=== PATIENT | female | born 1955 | race Caucasian/White ===

== ENCOUNTER 2019-10-12 15:51 | Outpatient (CLI) | payer OTHER, SELFPAY ==
--- NOTE | ~2019-10-12 | MM_ITS ---
EXAMINATION: MM screening [facility] w carlos enrique HISTORY: Screening mammogram, family history of breast cancer in her mother. TECHNIQUE: Craniocaudal and mediolateral oblique 3-D tomosynthesis images were obtained and synthetic 2-D images were generated. CAD analysis was submitted and interpreted. COMPARISON: 10/06/2018, 09/29/2017, 09/16/2015 BREAST PARENCHYMAL COMPOSITION: The breasts are almost entirely fatty. FINDINGS: Benign right breast calcifications are noted. There is no evidence of suspicious mass, calc ification, or architectural distortion to suggest malignancy in either breast. There has been no susp icious interval change. IMPRESSION: 1. No mammographic evidence of malignancy. 2. Recommend routine screening mammography in one year. BI-RADS Category 2: Benign finding(s). Reviewed, dictated and finalized at location A.
== END 2019-10-12 15:52 | disposition home or self-care (01) ==
LOC: ANHIMG 15:53
PROVIDERS: PCP Internal Medicine; Visit Provider Internal Medicine
DX: Z12.31 Encounter for screening mammogram for malignant neoplasm of breast (principal)
CPT/HCPCS: 77063; 77067

== ENCOUNTER 2019-11-16 09:57 | Outpatient (CLI) | payer OTHER, SELFPAY ==
[2019-11-16 10:14] LABS: Basophils Absolute Auto 0.1 K/mm3 (0.0-0.1); Basophils Percent Auto 0.7 % (0.2-1.2); Eosinophils Absolute Auto 0.2 K/mm3 (0-0.3); Eosinophils Percent Auto 2.7 % (0-4.4); Hematocrit 42.2 % (37.0-47.0); Hemoglobin 14.2 g/dL (12.0-15.0); Immature Granulocyte Absolute 0.02 K/mm3 (0.00-0.031); Immature Granulocyte Percent A 0.3 % (0-0.5); Lymphocytes Absolute Auto 2.22 K/mm3 (0.9-3.2); Lymphocytes Percent Auto 33.2 % (18.3-44.2); Mean Corpuscular HGB Conc 33.6 g/dl (32-36); Mean Corpuscular Hemoglobin 33.4 pg (26-34); Mean Corpuscular Volume 99.3 fl (80-100); Mean Platelet Volume 8.6 fl (7.4-10.4); Monocytes Absolute Auto 0.6 K/mm3 (0.1-0.6); Monocytes Percent Auto 8.5 % (2.6-8.5); Neutrophils Absolute Auto 3.7 K/mm3 (1.3-6.7); Neutrophils Percent Auto 54.6 % (45.5-73.1); Platelet Count Result 220 k/mm3 (150-375); Red Blood Count 4.25 M/mm3 (4.2-5.4); Red Cell Distribution Width 12.1 % (11.5-14.5); White Blood Count 6.7 K/mm3 (4.5-10.0)
[2019-11-16 11:45] LABS: Blood Urea Nitrogen 14 mg/dL (7-17); Calcium 9.8 mg/dL (8.4-10.2); Carbon Dioxide 23 mmol/L (22-30); Chloride 107 mmol/L (98-107); Estimated Glomerular Filt Rate > 60; Glucose 94 mg/dL (65-105); Potassium 4.8 mmol/L (3.4-5.0); Sodium 138 mmol/L (137-145)
[2019-11-16 12:08] LABS: Free T4 Free Thyroxine 0.36 ng/mL (0.78-2.19)
[2019-11-18 03:19] LABS: Thyroglobulin 6.2 ng/mL (2.8-40.9); Thyroglobulin Antibodies 8 IU/mL (<=1)
== END 2019-11-16 09:58 | disposition home or self-care (01) ==
LOC: ANHLAB 09:58
PROVIDERS: PCP Internal Medicine; Referring Provider Internal Medicine Endocrinology, Diabetes & Metabolism; Visit Provider Internal Medicine Hematology & Oncology
DX: C73 Malignant neoplasm of thyroid gland (principal); E03.9 Hypothyroidism, unspecified
CPT/HCPCS: 36415; 80048; 84432; 84439; 84443; 85025; 86800

== ENCOUNTER 2019-12-19 13:29 | Outpatient (CLI) | payer OTHER, SELFPAY ==
[2019-12-19 15:41] LABS: Free T4 Free Thyroxine 0.48 ng/mL (0.78-2.19)
== END 2019-12-19 13:30 | disposition home or self-care (01) ==
LOC: ANHLAB 13:31
PROVIDERS: PCP Internal Medicine; Visit Provider Internal Medicine Endocrinology, Diabetes & Metabolism
DX: C73 Malignant neoplasm of thyroid gland (principal)
CPT/HCPCS: 36415; 84439; 84443

== ENCOUNTER 2020-02-15 07:20 | Outpatient (CLI) | payer OTHER, SELFPAY ==
--- NOTE | ~2020-02-15 | US_ITS ---
EXAMINATION: US soft tissue head and neck DATE: 02/15/2020 07:57 INDICATION: Papillary thyroid carcinoma post thyroidectomy TECHNIQUE: Multiple grayscale and Doppler ultrasound images of the neck were obtained. COMPARISON: 08/15/[address] of the neck dated 03/23/2018 FINDINGS: Thyroid is absent with no visual tissue identified at the thyroidectomy bed. Again seen are 2 anechoi c cystic nodules with posterior acoustic enhancement at the more cephalad nodule which measures 2.2 x 2.2 x 1.4 cm which is increased from 1.8 x 1.7 x 1.4 cm. There appears to be a 2 x 3 mm hypoechoic n odular component along a thin internal septation within the lesion. The smaller more caudal lesion me asures 1.6 x 1.2 x 1.1 cm which is also slightly increased from 1.3 x 1.2 x 1.2 cm. There is a third 9 x 8 x 5 mm hypoechoic nodule positioned yet further inferiorly along the midline. Which was not dis cretely imaged on the prior study although mildly enlarged superior mediastinal lymph nodes were seen in this region on an earlier CT dated 03/23/2018. IMPRESSION: 1. Slight increase in size of a couple cystic lesions inferior to the thyroid, the smaller without ev ident soft tissue component and the larger more cephalad lesion appearing mildly complex with 2 x 3 m m nodular soft tissue component along a thin internal septation is suspicious for treated jessica metas tatic disease. 2. More inferior 9 mm solid hypoechoic nodule which is not imaged on the prior study but appears to c orrespond to one of a few prominent superior mediastinal lymph nodes on earlier CT which is also susp icious for metastatic disease. Reviewed, dictated and finalized at location A. IMPRESSION: 1. Slight increase in size of a couple cystic lesions inferior to the thyroid, the smaller without evident soft tissue component and the larger more cephalad lesion appearing mildly complex with 2 x 3 mm nodular soft tissue component mer ng a thin internal septation is suspicious for treated jessica metastatic disease . 2. More inferior 9 mm solid hypoechoic nodule which is not imaged on the prior study but appears to correspond to one of a few prominent superior mediastinal lymph nodes on earlier CT which is also suspicious for metastatic disease.
== END 2020-02-15 07:21 | disposition home or self-care (01) ==
LOC: ANHIMG 07:25
PROVIDERS: PCP Internal Medicine; Visit Provider Internal Medicine Hematology & Oncology
DX: C73 Malignant neoplasm of thyroid gland (principal)
CPT/HCPCS: 76536

== ENCOUNTER 2020-02-15 08:24 | Outpatient (CLI) | payer OTHER, SELFPAY ==
[2020-02-15 08:45] LABS: Basophils Absolute Auto 0.1 K/mm3 (0.0-0.1); Basophils Percent Auto 0.7 % (0.2-1.2); Eosinophils Absolute Auto 0.1 K/mm3 (0-0.3); Eosinophils Percent Auto 0.9 % (0-4.4); Hematocrit 42.1 % (37.0-47.0); Hemoglobin 14.2 g/dL (12.0-15.0); Immature Granulocyte Absolute 0.02 K/mm3 (0.00-0.031); Immature Granulocyte Percent A 0.3 % (0-0.5); Lymphocytes Absolute Auto 1.11 K/mm3 (0.9-3.2); Mean Corpuscular HGB Conc 33.7 g/dl (32-36); Mean Corpuscular Hemoglobin 32.1 pg (26-34); Mean Platelet Volume 8.5 fl (7.4-10.4); Monocytes Absolute Auto 0.3 K/mm3 (0.1-0.6); Monocytes Percent Auto 4.3 % (2.6-8.5); Neutrophils Absolute Auto 5.8 K/mm3 (1.3-6.7); Neutrophils Percent Auto 78.8 % (45.5-73.1); Platelet Count Result 243 k/mm3 (150-375); Red Blood Count 4.43 M/mm3 (4.2-5.4); Red Cell Distribution Width 12.1 % (11.5-14.5); White Blood Count 7.4 K/mm3 (4.5-10.0)
[2020-02-15 11:09] LABS: Alanine Aminotransferase 27 U/L (4-35); Albumin Level 4.5 g/dL (3.5-5.1); Alkaline Phosphatase 123 U/L (38-126); Aspartate Amino Transferase 27 U/L (14-36); Bilirubin,Total 0.5 mg/dL (0.2-1.3); Blood Urea Nitrogen 17 mg/dL (7-17); Calcium 9.5 mg/dL (8.4-10.2); Carbon Dioxide 22 mmol/L (22-30); Chloride 107 mmol/L (98-107); Estimated Glomerular Filt Rate > 60; Glucose 133 mg/dL (65-105); Potassium 4.3 mmol/L (3.4-5.0); Sodium 138 mmol/L (137-145)
[2020-02-18 04:09] LABS: Thyroglobulin 2.6 ng/mL (2.8-40.9); Thyroglobulin Antibodies 5 IU/mL (<=1)
== END 2020-02-15 08:25 | disposition home or self-care (01) ==
PROVIDERS: PCP Internal Medicine; Visit Provider Internal Medicine Hematology & Oncology
DX: C73 Malignant neoplasm of thyroid gland (principal)
CPT/HCPCS: 36415; 80053; 84432; 85025; 86800

== ENCOUNTER 2020-05-17 11:13 | Outpatient (CLI) | payer MEDICARE, OTHER, SELFPAY ==
[2020-05-17 11:40] LABS: Basophils Absolute Auto 0.1 K/mm3 (0.0-0.1); Basophils Percent Auto 0.9 % (0.2-1.2); Eosinophils Absolute Auto 0.1 K/mm3 (0-0.3); Eosinophils Percent Auto 1.5 % (0-4.4); Hematocrit 42.4 % (37.0-47.0); Hemoglobin 14.6 g/dL (12.0-15.0); Immature Granulocyte Absolute 0.03 K/mm3 (0.00-0.031); Immature Granulocyte Percent A 0.4 % (0-0.5); Lymphocytes Absolute Auto 2.29 K/mm3 (0.9-3.2); Lymphocytes Percent Auto 28.7 % (18.3-44.2); Mean Corpuscular HGB Conc 34.4 g/dl (32-36); Mean Corpuscular Hemoglobin 33.1 pg (26-34); Mean Corpuscular Volume 96.1 fl (80-100); Mean Platelet Volume 8.2 fl (7.4-10.4); Monocytes Absolute Auto 0.6 K/mm3 (0.1-0.6); Monocytes Percent Auto 7.8 % (2.6-8.5); Neutrophils Absolute Auto 4.9 K/mm3 (1.3-6.7); Neutrophils Percent Auto 60.7 % (45.5-73.1); Platelet Count Result 254 k/mm3 (150-375); Red Blood Count 4.41 M/mm3 (4.2-5.4); Red Cell Distribution Width 12.5 % (11.5-14.5)
[2020-05-17 17:10] LABS: Alanine Aminotransferase 21 U/L (4-35); Albumin Level 4.2 g/dL (3.5-5.1); Alkaline Phosphatase 113 U/L (38-126); Anion Gap 10 mmol/L (8-16); Aspartate Amino Transferase 21 U/L (14-36); Bilirubin,Total 0.6 mg/dL (0.2-1.3); Blood Urea Nitrogen 19 mg/dL (7-17); Calcium 9.8 mg/dL (8.4-10.2); Carbon Dioxide 24 mmol/L (22-30); Chloride 108 mmol/L (98-107); Estimated Glomerular Filt Rate > 60; Glucose 107 mg/dL (65-105); Potassium 4.1 mmol/L (3.4-5.0); Sodium 142 mmol/L (137-145)
[2020-05-20 05:38] LABS: Thyroglobulin 4.6 ng/mL (2.8-40.9); Thyroglobulin Antibodies 2 IU/mL (<=1)
== END 2020-05-17 11:14 | disposition home or self-care (01) ==
PROVIDERS: PCP Internal Medicine; Visit Provider Internal Medicine Hematology & Oncology
DX: C73 Malignant neoplasm of thyroid gland (principal)
CPT/HCPCS: 36415; 80053; 84432; 84443; 85025; 86800

== ENCOUNTER 2020-06-07 09:43 | Outpatient (CLI) | payer MEDICARE, OTHER, SELFPAY ==
[2020-06-07 11:31] LABS: Calcium 9.9 mg/dL (8.4-10.2)
[2020-06-07 11:37] LABS: Parathyroid Intact 38.6 pg/mL (7.5-53.5)
[2020-06-07 11:42] LABS: Free T4 Free Thyroxine 0.71 ng/mL (0.78-2.19)
[2020-06-10 21:42] LABS: Triiodothyronine T3 Free 4.2 pg/mL (2.3-4.2)
[2020-06-13 07:44] LABS: Thyroglobulin 3.1 ng/mL (2.8-40.9); Thyroglobulin Antibodies 2 IU/mL (<=1)
== END 2020-06-07 09:44 | disposition home or self-care (01) ==
PROVIDERS: PCP Internal Medicine; Visit Provider Radiology Radiation Oncology
DX: C73 Malignant neoplasm of thyroid gland (principal)
CPT/HCPCS: 36415; 82310; 83970; 84432; 84439; 84443; 84481; 86800

== ENCOUNTER 2020-06-27 06:35 | Outpatient (CLI) | payer MEDICARE, OTHER, SELFPAY ==
[2020-06-27 08:20] LABS: Thyroid Stimulating Hormone > 100.000 uIU/mL (0.465-4.680)
[2020-07-01 02:34] LABS: Thyroglobulin 12.8 ng/mL (2.8-40.9); Thyroglobulin Antibodies 2 IU/mL (<=1)
== END 2020-06-27 06:36 | disposition home or self-care (01) ==
PROVIDERS: PCP Internal Medicine; Visit Provider Radiology Radiation Oncology
DX: C73 Malignant neoplasm of thyroid gland (principal)
CPT/HCPCS: 36415; 84432; 84443; 86800

== ENCOUNTER 2020-08-21 08:09 | Outpatient (CLI) | payer MEDICARE, OTHER, SELFPAY ==
[2020-08-21 08:28] LABS: Basophils Absolute Auto 0.1 K/mm3 (0.0-0.1); Basophils Percent Auto 0.7 % (0.2-1.2); Eosinophils Absolute Auto 0.1 K/mm3 (0-0.3); Eosinophils Percent Auto 1.9 % (0-4.4); Hematocrit 41.4 % (37.0-47.0); Immature Granulocyte Absolute 0.03 K/mm3 (0.00-0.031); Immature Granulocyte Percent A 0.4 % (0-0.5); Lymphocytes Absolute Auto 1.99 K/mm3 (0.9-3.2); Lymphocytes Percent Auto 27.4 % (18.3-44.2); Mean Corpuscular HGB Conc 33.8 g/dl (32-36); Mean Corpuscular Hemoglobin 33.2 pg (26-34); Mean Corpuscular Volume 98.1 fl (80-100); Mean Platelet Volume 8.2 fl (7.4-10.4); Monocytes Absolute Auto 0.6 K/mm3 (0.1-0.6); Monocytes Percent Auto 8.1 % (2.6-8.5); Neutrophils Absolute Auto 4.5 K/mm3 (1.3-6.7); Neutrophils Percent Auto 61.5 % (45.5-73.1); Platelet Count Result 246 k/mm3 (150-375); Red Blood Count 4.22 M/mm3 (4.2-5.4); White Blood Count 7.3 K/mm3 (4.5-10.0)
[2020-08-21 13:07] LABS: Alanine Aminotransferase 19 U/L (4-35); Alkaline Phosphatase 98 U/L (38-126); Anion Gap 8 mmol/L (8-16); Aspartate Amino Transferase 22 U/L (14-36); Bilirubin,Total 0.7 mg/dL (0.2-1.3); Blood Urea Nitrogen 16 mg/dL (7-17); Calcium 9.4 mg/dL (8.4-10.2); Carbon Dioxide 25 mmol/L (22-30); Chloride 106 mmol/L (98-107); Estimated Glomerular Filt Rate > 60; Glucose 112 mg/dL (65-105); Potassium 4.2 mmol/L (3.4-5.0); Sodium 139 mmol/L (137-145)
[2020-08-25 22:41] LABS: Thyroglobulin 4.6 ng/mL (2.8-40.9); Thyroglobulin Antibodies 2 IU/mL (<=1)
== END 2020-08-21 08:10 | disposition home or self-care (01) ==
LOC: ANHLAB 08:11
PROVIDERS: PCP Internal Medicine; Visit Provider Internal Medicine Hematology & Oncology
DX: C73 Malignant neoplasm of thyroid gland (principal)
CPT/HCPCS: 36415; 80053; 84432; 84443; 85025; 86800

== ENCOUNTER 2020-09-19 10:37 | Outpatient (CLI) | payer MEDICARE, OTHER, SELFPAY ==
[2020-09-19 16:55] LABS: Anion Gap 3 mmol/L (8-16); Blood Urea Nitrogen 12 mg/dL (7-17); Calcium 9.3 mg/dL (8.4-10.2); Carbon Dioxide 27 mmol/L (22-30); Chloride 109 mmol/L (98-107); Estimated Glomerular Filt Rate > 60; Glucose 113 mg/dL (65-105); Magnesium 1.8 mg/dL (1.6-2.3); Potassium 4.1 mmol/L (3.4-5.0); Sodium 139 mmol/L (137-145)
== END 2020-09-19 10:38 | disposition home or self-care (01) ==
LOC: ANHLAB 10:39
PROVIDERS: PCP Internal Medicine
DX: C73 Malignant neoplasm of thyroid gland (principal)
CPT/HCPCS: 36415; 80048; 83735; 84443

== ENCOUNTER 2020-10-16 16:14 | Outpatient (CLI) | payer MEDICARE, OTHER, SELFPAY ==
--- NOTE | ~2020-10-16 | MM_ITS ---
EXAMINATION: MM screening [facility] w carlos enrique HISTORY: Screening TECHNIQUE: Craniocaudal and mediolateral oblique 3-D tomosynthesis images were obtained and synthetic 2-D images were generated. CAD analysis was submitted and interpreted. COMPARISON: Comparison to multiple prior studies sequentially, with oldest reviewed study dated 11/2014. BREAST PARENCHYMAL COMPOSITION: There are scattered areas of fibroglandular density. FINDINGS: There is no evidence of suspicious mass, calcification, or architectural distortion to sugg est malignancy in either breast. There has been no suspicious interval change. IMPRESSION: 1. No mammographic evidence of malignancy. 2. Recommend routine screening mammography in one year. BI-RADS Category 1: Negative Reviewed, dictated and finalized at location A.
== END 2020-10-16 16:15 | disposition home or self-care (01) ==
PROVIDERS: PCP Internal Medicine; Visit Provider Internal Medicine
DX: Z12.31 Encounter for screening mammogram for malignant neoplasm of breast (principal)
CPT/HCPCS: 77063; 77067

== ENCOUNTER 2020-10-29 09:43 | Outpatient (CLI) | payer MEDICARE, OTHER, SELFPAY ==
[2020-10-29 10:04] LABS: Basophils Percent Auto 0.7 % (0.2-1.2); Eosinophils Absolute Auto 0.2 K/mm3 (0-0.3); Eosinophils Percent Auto 2.5 % (0-4.4); Hemoglobin 12.9 g/dL (12.0-15.0); Immature Granulocyte Absolute 0.01 K/mm3 (0.00-0.031); Immature Granulocyte Percent A 0.2 % (0-0.5); Lymphocytes Absolute Auto 1.99 K/mm3 (0.9-3.2); Lymphocytes Percent Auto 33.3 % (18.3-44.2); Mean Corpuscular HGB Conc 33.9 g/dl (32-36); Mean Corpuscular Hemoglobin 31.9 pg (26-34); Mean Corpuscular Volume 94.1 fl (80-100); Mean Platelet Volume 8.3 fl (7.4-10.4); Monocytes Absolute Auto 0.5 K/mm3 (0.1-0.6); Neutrophils Absolute Auto 3.2 K/mm3 (1.3-6.7); Neutrophils Percent Auto 54.3 % (45.5-73.1); Platelet Count Result 256 k/mm3 (150-375); Red Blood Count 4.04 M/mm3 (4.2-5.4); Red Cell Distribution Width 12.1 % (11.5-14.5)
[2020-10-29 12:26] LABS: Alanine Aminotransferase 20 U/L (4-35); Albumin Level 4.1 g/dL (3.5-5.1); Alkaline Phosphatase 104 U/L (38-126); Anion Gap 10 mmol/L (8-16); Aspartate Amino Transferase 22 U/L (14-36); Bilirubin,Total 0.4 mg/dL (0.2-1.3); Blood Urea Nitrogen 14 mg/dL (7-17); Calcium 9.4 mg/dL (8.4-10.2); Carbon Dioxide 22 mmol/L (22-30); Chloride 107 mmol/L (98-107); Estimated Glomerular Filt Rate > 60; Glucose 116 mg/dL (65-105); Sodium 139 mmol/L (137-145)
[2020-10-29 13:58] LABS: Potassium 4.3 mmol/L (3.4-5.0)
[2020-11-01 05:29] LABS: Thyroglobulin 0.1 ng/mL (2.8-40.9); Thyroglobulin Antibodies 2 IU/mL (<=1)
== END 2020-10-29 09:44 | disposition home or self-care (01) ==
PROVIDERS: PCP Internal Medicine; Visit Provider Internal Medicine Hematology & Oncology
DX: C73 Malignant neoplasm of thyroid gland (principal)
CPT/HCPCS: 36415; 80053; 84432; 84443; 85025; 86800

== ENCOUNTER 2020-11-23 08:59 | Outpatient (CLI) | payer MEDICARE, OTHER, SELFPAY ==
[2020-11-23 09:22] LABS: Basophils Absolute Auto 0.1 K/mm3 (0.0-0.1); Eosinophils Absolute Auto 0.2 K/mm3 (0-0.3); Eosinophils Percent Auto 3.3 % (0-4.4); Hematocrit 43.4 % (37.0-47.0); Hemoglobin 14.6 g/dL (12.0-15.0); Immature Granulocyte Absolute 0.02 K/mm3 (0.00-0.031); Immature Granulocyte Percent A 0.3 % (0-0.5); Lymphocytes Absolute Auto 1.96 K/mm3 (0.9-3.2); Lymphocytes Percent Auto 33.9 % (18.3-44.2); Mean Corpuscular HGB Conc 33.6 g/dl (32-36); Mean Corpuscular Hemoglobin 31.9 pg (26-34); Mean Platelet Volume 8.4 fl (7.4-10.4); Monocytes Absolute Auto 0.6 K/mm3 (0.1-0.6); Monocytes Percent Auto 9.7 % (2.6-8.5); Neutrophils Percent Auto 51.8 % (45.5-73.1); Platelet Count Result 244 k/mm3 (150-375); Red Blood Count 4.57 M/mm3 (4.2-5.4); Red Cell Distribution Width 12.5 % (11.5-14.5); White Blood Count 5.8 K/mm3 (4.5-10.0)
[2020-11-23 14:29] LABS: Alanine Aminotransferase 22 U/L (4-35); Albumin Level 4.5 g/dL (3.5-5.1); Alkaline Phosphatase 120 U/L (38-126); Anion Gap 10 mmol/L (8-16); Aspartate Amino Transferase 25 U/L (14-36); Bilirubin,Total 0.6 mg/dL (0.2-1.3); Blood Urea Nitrogen 16 mg/dL (7-17); Calcium 9.8 mg/dL (8.4-10.2); Carbon Dioxide 24 mmol/L (22-30); Chloride 106 mmol/L (98-107); Estimated Glomerular Filt Rate > 60; Glucose 103 mg/dL (65-105); Potassium 4.7 mmol/L (3.4-5.0); Sodium 140 mmol/L (137-145)
[2020-11-26 03:08] LABS: Thyroglobulin <0.1 ng/mL (2.8-40.9); Thyroglobulin Antibodies 2 IU/mL (<=1)
== END 2020-11-23 09:00 | disposition home or self-care (01) ==
LOC: ANHLAB 09:01
PROVIDERS: PCP Internal Medicine; Visit Provider Internal Medicine Hematology & Oncology
DX: C73 Malignant neoplasm of thyroid gland (principal)
CPT/HCPCS: 36415; 80053; 84432; 84443; 85025; 86800

== ENCOUNTER 2020-12-17 13:21 | Outpatient (CLI) | payer MEDICARE, OTHER, SELFPAY ==
--- NOTE | ~2020-12-17 | US_ITS ---
EXAMINATION: US thyroid DATE: 12/17/2020 14:20 INDICATION: Thyroid cancer. TECHNIQUE: Multiple ultrasound images of the thyroid were obtained. COMPARISON: Ultrasound 02/15/2020 FINDINGS: The thyroid is absent. There are no pathologically enlarged lymph nodes. IMPRESSION: 1. No evidence of metastatic disease. Reviewed, dictated and finalized at location A.
== END 2020-12-17 13:22 | disposition home or self-care (01) ==
PROVIDERS: PCP Internal Medicine; Visit Provider Internal Medicine Endocrinology, Diabetes & Metabolism
DX: Z85.850 Personal history of malignant neoplasm of thyroid (principal)
CPT/HCPCS: 76536

== ENCOUNTER 2020-12-19 09:47 | Outpatient (CLI) | payer MEDICARE, OTHER, SELFPAY | END 2020-12-19 09:48 | disposition home or self-care (01) | PROVIDERS: PCP Internal Medicine; Visit Provider Internal Medicine Hematology & Oncology | DX: C73 Malignant neoplasm of thyroid gland (principal) | CPT/HCPCS: 36415; 84443 ==

== ENCOUNTER 2021-01-18 08:50 | Outpatient (CLI) | payer MEDICARE, OTHER, SELFPAY ==
--- NOTE | ~2021-01-18 | DEXA_ITS ---
Bone Density Report Name: Marley Stephneson Age: 65 Sex: Female Ethnicity: White Date of : 1955 Indication: postmenopausal; cancer; asthma or emphysema; hysterectomy; Referring Provider: Juan, Yanelis Gallegos Study: Bone densitometry was performed. Exam Date: January 18, 2021 Accession number: [id number] Bone Density: Region BMD T-score Z-score Classification AP Spine (L2, L3, L4) 0.873 -1.9 0.0 Osteopenia Femoral Neck (Left) 0.644 -1.8 -0.3 Osteopenia Total Hip (Left) 0.850 -0.8 0.5 Normal Total Hip Bilateral Avg 0.818 -1.1 0.3 Osteopenia Femoral Neck (Right) 0.703 -1.3 0.2 Osteopenia Total Hip (Right) 0.784 -1.3 0.0 Osteopenia World Health Organization criteria for BMD impression classify patients as: Normal (T-score at or above -1.0), Osteopenia (T-score between -1.0 and -2.5), or Osteoporosis (T-score at or below -2.5). 10-year Fracture Risk(1): Major Osteoporotic Fracture 9.7% Hip Fracture 1.3% Reported Risk Factors: [place] (), Neck BMD=0.644, BMI=31.1 (1) FRAX(R) Version 3.08. Fracture probability calculated for an untreated patient. Fracture probability may be lower if the patient has received treatment. Clinical Information Provided by Patient: Has used the following medications: Vitamin D, Calcium Has the following medical conditions: Asthma or Emphysema, Cancer, Hysterectomy Patient maximum height was 63 Menopause Age: 35 No regular weight bearing exercise Onset of menses at age 11 Number of children 2 Impression: The patient has low bone mass, based on the Total Spine T-score. The patient has an estimated ten-year risk of hip fracture of 1.3% and an estimated ten-year risk of major fracture of 9.7%, based on the WHO FRAX algorithm. Discussion: BONE DENSITY IS LOW AT ONE OR MORE SKELETAL SITES. This patient's lowest T-score is low at one or more skeletal sites. It meets the World Health Organization's (WHO) criteria for ?low bone mass? (T-score between -1.0 and -2.5). The patient's 10-year risk of fracture as calculated by FRAX is less than the threshold where pharmacological therapy is recommended by the National Osteoporosis Foundation (NOF). However, all treatment decisions require clinical judgment and consideration of individual patient factors, including patient preferences, comorbidities, previous drug use, risk factors not captured in the FRAX model (e.g., frailty, falls, vitamin D deficiency, increased bone turnover, interval significant decline in bone density) and possible under or overestimation of fracture risk by FRAX. The patient should follow a healthful lifestyle (good nutrition with adequate calcium and vitamin D, and appropriate weight-bearing exercise). Follow-Up: Consider repeating this study in 2 to 3 years to reassess this patient's status, or sooner if
== END 2021-01-18 08:51 | disposition home or self-care (01) ==
LOC: ANHIMG 08:52
PROVIDERS: PCP Internal Medicine; Visit Provider Internal Medicine Endocrinology, Diabetes & Metabolism
DX: Z78.0 Asymptomatic menopausal state (principal); M85.88 Other specified disorders of bone density and structure, other site; M85.852 Other specified disorders of bone density and structure, left thigh; M85.851 Other specified disorders of bone density and structure, right thigh
CPT/HCPCS: 77080

== ENCOUNTER 2021-02-12 08:33 | Outpatient (CLI) | payer MEDICARE, OTHER, SELFPAY ==
[2021-02-12 08:49] LABS: Basophils Percent Auto 0.7 % (0.2-1.2); Eosinophils Absolute Auto 0.1 K/mm3 (0-0.3); Eosinophils Percent Auto 2.5 % (0-4.4); Hematocrit 42.1 % (37.0-47.0); Hemoglobin 14.4 g/dL (12.0-15.0); Immature Granulocyte Absolute 0.01 K/mm3 (0.00-0.031); Immature Granulocyte Percent A 0.2 % (0-0.5); Lymphocytes Absolute Auto 1.85 K/mm3 (0.9-3.2); Lymphocytes Percent Auto 32.7 % (18.3-44.2); Mean Corpuscular HGB Conc 34.2 g/dl (32-36); Mean Corpuscular Hemoglobin 32.3 pg (26-34); Mean Corpuscular Volume 94.4 fl (80-100); Mean Platelet Volume 8.3 fl (7.4-10.4); Monocytes Absolute Auto 0.5 K/mm3 (0.1-0.6); Monocytes Percent Auto 9.6 % (2.6-8.5); Neutrophils Absolute Auto 3.1 K/mm3 (1.3-6.7); Neutrophils Percent Auto 54.3 % (45.5-73.1); Platelet Count Result 249 k/mm3 (150-375); Red Blood Count 4.46 M/mm3 (4.2-5.4); Red Cell Distribution Width 12.2 % (11.5-14.5); White Blood Count 5.7 K/mm3 (4.5-10.0)
[2021-02-12 12:38] LABS: Alanine Aminotransferase 27 U/L (4-35); Albumin Level 4.4 g/dL (3.5-5.1); Alkaline Phosphatase 118 U/L (38-126); Anion Gap 10 mmol/L (8-16); Aspartate Amino Transferase 27 U/L (14-36); Bilirubin,Total 0.8 mg/dL (0.2-1.3); Blood Urea Nitrogen 16 mg/dL (7-17); Calcium 10.1 mg/dL (8.4-10.2); Carbon Dioxide 24 mmol/L (22-30); Chloride 105 mmol/L (98-107); Estimated Glomerular Filt Rate > 60; Glucose 94 mg/dL (65-105); Potassium 4.2 mmol/L (3.4-5.0); Sodium 139 mmol/L (137-145)
[2021-02-12 13:09] LABS: Thyroid Stimulating Hormone < 0.015 uIU/mL (0.465-4.680)
== END 2021-02-12 08:34 | disposition home or self-care (01) ==
LOC: ANHLAB 08:37
PROVIDERS: PCP Internal Medicine; Visit Provider Internal Medicine Hematology & Oncology
DX: C73 Malignant neoplasm of thyroid gland (principal)
CPT/HCPCS: 36415; 80053; 84443; 85025

== ENCOUNTER 2021-03-05 10:43 | Outpatient (CLI) | payer MEDICARE, OTHER, SELFPAY ==
--- NOTE | ~2021-03-05 | US_ITS ---
EXAMINATION: US soft tissue head and neck DATE: 03/05/2021 11:04 INDICATION: Papillary thyroid carcinoma status post thyroidectomy. TECHNIQUE: Multiple ultrasound images of the neck were obtained. COMPARISON: Ultrasound 12/17/2020 FINDINGS: The thyroid is absent. There are no pathologically enlarged lymph nodes. IMPRESSION: 1. No evidence of malignancy. Reviewed, dictated and finalized at location A.
== END 2021-03-05 10:44 | disposition home or self-care (01) ==
PROVIDERS: PCP Internal Medicine; Visit Provider Internal Medicine Hematology & Oncology
DX: C73 Malignant neoplasm of thyroid gland (principal)
CPT/HCPCS: 76536

== ENCOUNTER 2021-04-15 12:46 | Outpatient (CLI) | payer MEDICARE, OTHER, SELFPAY ==
--- NOTE | ~2021-04-15 | US_ITS ---
EXAMINATION: US soft tissue head and neck EXAM DATE: 04/15/2021 13:27 INDICATION: Papillary thyroid carcinoma . Bilateral thyroidectomy. TECHNIQUE: Multiple grayscale and Doppler images of the thyroid were obtained (by a technologist who performed the scan) and subsequently reviewed. Comparison is made to prior examination from 03/05/2021. FINDINGS: The thyroidectomy bed is unremarkable. No internal jugular chain pathological lymphadenopathy. IMPRESSION: 1. Unremarkable ultrasound exam. Reviewed, dictated and finalized at location B.
== END 2021-04-15 12:47 | disposition home or self-care (01) ==
LOC: ANHIMG 12:48
PROVIDERS: PCP Internal Medicine; Visit Provider Internal Medicine Hematology & Oncology
DX: C73 Malignant neoplasm of thyroid gland (principal)
CPT/HCPCS: 76536

== ENCOUNTER 2021-04-18 08:30 | Outpatient (CLI) | payer MEDICARE, OTHER, SELFPAY ==
[2021-04-18 09:28] LABS: Hematocrit 71.4 % (37.0-47.0); Hemoglobin 24.1 g/dL (12.0-15.0); Mean Corpuscular HGB Conc 33.8 g/dl (32-36); Mean Corpuscular Hemoglobin 31.6 pg (26-34); Mean Corpuscular Volume 93.7 fl (80-100); Mean Platelet Volume 8.4 fl (7.4-10.4); Platelet Count Result 66 k/mm3 (150-375); Red Blood Count 7.62 M/mm3 (4.2-5.4); Red Cell Distribution Width 13.9 % (11.5-14.5); White Blood Count 2.7 K/mm3 (4.5-10.0)
[2021-04-18 10:52] LABS: Alanine Aminotransferase 23 U/L (4-35); Albumin Level 4.6 g/dL (3.5-5.1); Alkaline Phosphatase 136 U/L (38-126); Anion Gap 11 mmol/L (8-16); Aspartate Amino Transferase 29 U/L (14-36); Bilirubin,Total 0.8 mg/dL (0.2-1.3); Blood Urea Nitrogen 19 mg/dL (7-17); Carbon Dioxide 23 mmol/L (22-30); Chloride 106 mmol/L (98-107); Estimated Glomerular Filt Rate > 60; Glucose 102 mg/dL (65-110); Potassium 4.1 mmol/L (3.4-5.0); Sodium 140 mmol/L (137-145)
[2021-04-18 11:17] LABS: Thyroid Stimulating Hormone 0.075 uIU/mL (0.465-4.680)
[2021-04-24 15:33] LABS: Thyroglobulin Antibodies <1 IU/mL
== END 2021-04-18 08:31 | disposition home or self-care (01) ==
LOC: ANHLAB 08:33
PROVIDERS: PCP Internal Medicine; Visit Provider Internal Medicine Hematology & Oncology
DX: C73 Malignant neoplasm of thyroid gland (principal)
CPT/HCPCS: 36415; 80053; 84443; 85027; 86800

== ENCOUNTER 2021-04-25 09:57 | Outpatient (CLI) | payer MEDICARE, OTHER, SELFPAY ==
[2021-04-25 10:16] LABS: Basophils Percent Auto 0.6 % (0.2-1.2); Eosinophils Absolute Auto 0.1 K/mm3 (0-0.3); Hematocrit 41.6 % (37.0-47.0); Hemoglobin 14.1 g/dL (12.0-15.0); Immature Granulocyte Absolute 0.02 K/mm3 (0.00-0.031); Immature Granulocyte Percent A 0.3 % (0-0.5); Lymphocytes Percent Auto 18.1 % (18.3-44.2); Mean Corpuscular HGB Conc 33.9 g/dl (32-36); Mean Corpuscular Hemoglobin 31.8 pg (26-34); Mean Corpuscular Volume 93.7 fl (80-100); Mean Platelet Volume 8.4 fl (7.4-10.4); Monocytes Absolute Auto 0.4 K/mm3 (0.1-0.6); Monocytes Percent Auto 5.4 % (2.6-8.5); Neutrophils Absolute Auto 5.3 K/mm3 (1.3-6.7); Neutrophils Percent Auto 73.6 % (45.5-73.1); Platelet Count Result 257 k/mm3 (150-375); Red Blood Count 4.44 M/mm3 (4.2-5.4); Red Cell Distribution Width 12.4 % (11.5-14.5); White Blood Count 7.2 K/mm3 (4.5-10.0)
[2021-04-25 13:20] LABS: Alanine Aminotransferase 24 U/L (4-35); Albumin Level 4.6 g/dL (3.5-5.1); Alkaline Phosphatase 121 U/L (38-126); Anion Gap 10 mmol/L (8-16); Aspartate Amino Transferase 43 U/L (14-36); Bilirubin,Total 0.7 mg/dL (0.2-1.3); Blood Urea Nitrogen 15 mg/dL (7-17); Carbon Dioxide 23 mmol/L (22-30); Chloride 106 mmol/L (98-107); Estimated Glomerular Filt Rate > 60; Glucose 106 mg/dL (65-110); Potassium 4.3 mmol/L (3.4-5.0); Sodium 139 mmol/L (137-145)
[2021-04-28 04:31] LABS: Thyroglobulin 0.1 ng/mL (2.8-40.9); Thyroglobulin Antibodies <1 IU/mL (<=1)
== END 2021-04-25 09:58 | disposition home or self-care (01) ==
LOC: ANHLAB 10:01
PROVIDERS: PCP Internal Medicine; Visit Provider Internal Medicine Hematology & Oncology
DX: C73 Malignant neoplasm of thyroid gland (principal)
CPT/HCPCS: 36415; 80053; 84432; 85025; 86800

== ENCOUNTER 2021-06-26 08:28 | Outpatient (CLI) | payer MEDICARE, OTHER, SELFPAY ==
[2021-06-26 08:52] LABS: Hemoglobin 13.6 g/dL (12.0-15.0); Mean Corpuscular Hemoglobin 31.6 pg (26-34); Mean Platelet Volume 8.3 fl (7.4-10.4); Platelet Count Result 283 k/mm3 (150-375); Red Cell Distribution Width 12.1 % (11.5-14.5); White Blood Count 5.3 K/mm3 (4.5-10.0)
[2021-06-26 09:11] LABS: Alanine Aminotransferase 22 U/L (4-35); Albumin Level 4.4 g/dL (3.5-5.1); Alkaline Phosphatase 106 U/L (38-126); Anion Gap 9 mmol/L (8-16); Aspartate Amino Transferase 37 U/L (14-36); Blood Urea Nitrogen 14 mg/dL (7-17); Calcium 9.6 mg/dL (8.4-10.2); Carbon Dioxide 26 mmol/L (22-30); Chloride 103 mmol/L (98-107); Estimated Glomerular Filt Rate > 60; Glucose 110 mg/dL (65-110); Potassium 4.1 mmol/L (3.4-5.0); Sodium 138 mmol/L (137-145)
[2021-06-30 04:52] LABS: Thyroglobulin <0.1 ng/mL (2.8-40.9); Thyroglobulin Antibodies <1 IU/mL (<=1)
== END 2021-06-26 08:29 | disposition home or self-care (01) ==
PROVIDERS: PCP Internal Medicine; Visit Provider Internal Medicine Hematology & Oncology
DX: C73 Malignant neoplasm of thyroid gland (principal)
CPT/HCPCS: 36415; 80053; 84432; 85027; 86800

== ENCOUNTER 2021-10-07 12:21 | Outpatient (CLI) | payer MEDICARE, OTHER, SELFPAY ==
--- NOTE | ~2021-10-07 | US_ITS ---
EXAMINATION: US soft tissue head and neck EXAM DATE: 10/07/2021 12:49 INDICATION: Papillary Thyroid Carcinoma. TECHNIQUE: Multiple grayscale and Doppler images of the thyroidectomy bed were obtained (by a technol ogist who performed the scan) and subsequently reviewed. Comparison is made to prior examination from 04/15/2021. FINDINGS: The thyroidectomy bed is unremarkable. No regional lymphadenopathy identified. IMPRESSION: Unremarkable thyroidectomy bed. Reviewed, dictated and finalized at location A. [employer]
== END 2021-10-07 12:22 | disposition home or self-care (01) ==
PROVIDERS: PCP Internal Medicine; Visit Provider Internal Medicine Hematology & Oncology
DX: C73 Malignant neoplasm of thyroid gland (principal)
CPT/HCPCS: 76536

== ENCOUNTER 2021-10-07 12:57 | Outpatient (CLI) | payer MEDICARE, OTHER, SELFPAY ==
[2021-10-07 13:15] LABS: Basophils Percent Auto 0.5 % (0.2-1.2); Eosinophils Absolute Auto 0.2 K/mm3 (0-0.3); Eosinophils Percent Auto 2.6 % (0-4.4); Hematocrit 41.8 % (37.0-47.0); Hemoglobin 13.9 g/dL (12.0-15.0); Immature Granulocyte Absolute 0.01 K/mm3 (0.00-0.031); Immature Granulocyte Percent A 0.2 % (0-0.5); Lymphocytes Percent Auto 40.1 % (18.3-44.2); Mean Corpuscular HGB Conc 33.3 g/dl (32-36); Mean Corpuscular Hemoglobin 31.5 pg (26-34); Mean Corpuscular Volume 94.8 fl (80-100); Mean Platelet Volume 8.4 fl (7.4-10.4); Monocytes Absolute Auto 0.5 K/mm3 (0.1-0.6); Monocytes Percent Auto 8.4 % (2.6-8.5); Neutrophils Absolute Auto 2.8 K/mm3 (1.3-6.7); Neutrophils Percent Auto 48.2 % (45.5-73.1); Platelet Count Result 257 k/mm3 (150-375); Red Blood Count 4.41 M/mm3 (4.2-5.4); Red Cell Distribution Width 12.2 % (11.5-14.5); White Blood Count 5.7 K/mm3 (4.5-10.0)
[2021-10-07 16:05] LABS: Alanine Aminotransferase 30 U/L (4-35); Albumin Level 4.5 g/dL (3.5-5.1); Alkaline Phosphatase 143 U/L (38-126); Anion Gap 7 mmol/L (8-16); Aspartate Amino Transferase 33 U/L (14-36); Bilirubin,Total 0.7 mg/dL (0.2-1.3); Blood Urea Nitrogen 15 mg/dL (7-17); Calcium 9.8 mg/dL (8.4-10.2); Carbon Dioxide 25 mmol/L (22-30); Chloride 107 mmol/L (98-107); Estimated Glomerular Filt Rate > 60; Glucose 100 mg/dL (65-110); Sodium 139 mmol/L (137-145)
[2021-10-07 16:35] LABS: Thyroid Stimulating Hormone 0.024 uIU/mL (0.465-4.680)
[2021-10-11 16:35] LABS: Thyroglobulin 0.1 ng/mL (2.8-40.9); Thyroglobulin Antibodies <1 IU/mL (<=1)
== END 2021-10-07 12:58 | disposition home or self-care (01) ==
LOC: ANHLAB 12:59
PROVIDERS: PCP Internal Medicine; Visit Provider Internal Medicine Hematology & Oncology
DX: C73 Malignant neoplasm of thyroid gland (principal)
CPT/HCPCS: 36415; 76536; 80053; 84432; 84443; 85025; 86800

== ENCOUNTER 2021-10-25 15:49 | Outpatient (CLI) | payer MEDICARE, OTHER, SELFPAY ==
--- NOTE | ~2021-10-25 | US_ITS ---
EXAMINATION: US thyroid DATE: 10/25/2021 17:29 INDICATION: Prior papillary thyroid carcinoma post thyroidectomy TECHNIQUE: Multiple ultrasound images of the region of the thyroid were obtained. COMPARISON: 10/07/2021 FINDINGS: The thyroid is not visualized consistent with provided history of prior thyroidectomy. No abnormal ti ssue identified at the thyroid fossae to suggest residual/recurrent disease. No adjacent lymphadenopa thy. IMPRESSION: 1. Expected appearance post thyroidectomy. Reviewed, dictated and finalized at location A.
== END 2021-10-25 15:50 | disposition home or self-care (01) ==
PROVIDERS: PCP Internal Medicine; Visit Provider Internal Medicine Endocrinology, Diabetes & Metabolism
DX: Z85.850 Personal history of malignant neoplasm of thyroid (principal)
CPT/HCPCS: 76536

== ENCOUNTER 2022-01-03 08:07 | Outpatient (CLI) | payer MEDICARE, OTHER, SELFPAY ==
--- NOTE | ~2022-01-03 | MM_ITS ---
EXAMINATION: MM screening [facility] w carlos enrique HISTORY: Screening mammogram TECHNIQUE: Craniocaudal and mediolateral oblique 3-D tomosynthesis images were obtained and synthetic 2-D images were generated. CAD analysis was submitted and interpreted. COMPARISON: 10/16/2020, 10/12/2019, 10/06/2018 bilateral screening mammogram examinations BREAST PARENCHYMAL COMPOSITION: The breasts are almost entirely fatty. FINDINGS: Stable benign calcification of fat necrosis in the posterior upper mid right breast. There is no evidence of suspicious mass, calcification, or architectural distortion to suggest malignancy i n either breast. There has been no suspicious interval change. IMPRESSION: 1. No mammographic evidence of malignancy. 2. Recommend routine screening mammography in one year. BI-RADS Category 1: Negative Reviewed, dictated and finalized at location A.
== END 2022-01-03 08:08 | disposition home or self-care (01) ==
PROVIDERS: PCP Internal Medicine; Visit Provider Internal Medicine
DX: Z12.31 Encounter for screening mammogram for malignant neoplasm of breast (principal)
CPT/HCPCS: 77063; 77067

== ENCOUNTER 2022-03-28 08:57 | Outpatient (CLI) | payer MEDICARE, OTHER, SELFPAY ==
--- NOTE | ~2022-03-28 | XR_ITS ---
EXAMINATION: XR finger 1st LT min 2V DATE: 03/28/2022 09:21 INDICATION: Left thumb injury. Pain at first metacarpophalangeal joint for one month. TECHNIQUE: 3 views of left thumb were obtained. COMPARISON: None. FINDINGS: Bone alignment is normal. No fracture. There is mild osteoarthritis of first interphalangea l joint, first metacarpophalangeal joint, and first carpometacarpal joint. IMPRESSION: 1. Mild polyarticular osteoarthritis. Reviewed, dictated and finalized at location A.
== END 2022-03-28 08:58 | disposition home or self-care (01) ==
LOC: CHSIMG 09:00
PROVIDERS: PCP Internal Medicine; Visit Provider Internal Medicine
DX: S69.92XA Unspecified injury of left wrist, hand and finger(s), initial encounter (principal)
CPT/HCPCS: 73140

== ENCOUNTER 2022-04-02 12:16 | Outpatient (CLI) | payer MEDICARE, OTHER, SELFPAY ==
--- NOTE | ~2022-04-02 | CT_ITS ---
EXAMINATION: CT pelvis wo con DATE: 04/02/2022 12:32 INDICATION: Right inguinal pain, hernia TECHNIQUE: Computed tomography (CT) of the pelvis was performed without intravenous contrast. Automat ed exposure control and iterative reconstruction technique were employed. Exam dose: 423.88 mGy-cm t otal exam DLP. COMPARISON: 02/28/2019 CT abdomen pelvis FINDINGS: Diverticulosis of left and right colon; no diverticulitis is evident in the lower abdomen o r pelvis. No evidence of appendicitis. No bowel obstruction or intraperitoneal free air is detected. Status post hysterectomy. The urinary bladder is unremarkable. Very small fat-containing umbilical hernia. No other abdominal wall hernia is evident. Osteopenia. Moderately severe degenerative disease and mild retrolisthesis at L5-S1. Bilateral hip osteoarthritis. IMPRESSION: Right small fat-containing umbilical hernia; no other abdominal wall hernia is evident Diverticulosis of the colon Reviewed, dictated and finalized at Location A. Reviewed, dictated and finalized at location B. IMPRESSION: Right small fat-containing umbilical hernia; no other abdominal wa ll hernia is evident Diverticulosis of the colon
== END 2022-04-02 12:17 | disposition home or self-care (01) ==
PROVIDERS: PCP Internal Medicine; Visit Provider Surgery
DX: R10.31 Right lower quadrant pain (principal); K57.30 Diverticulosis of large intestine without perforation or abscess without bleeding; K42.9 Umbilical hernia without obstruction or gangrene
CPT/HCPCS: 72192

== ENCOUNTER 2022-04-08 08:58 | Outpatient (CLI) | payer MEDICARE, OTHER, SELFPAY ==
--- NOTE | ~2022-04-08 | US_ITS ---
EXAMINATION: US soft tissue head and neck DATE: 04/08/2022 10:27 INDICATION: Papillary thyroid carcinoma. TECHNIQUE: Multiple ultrasound images of the thyroid were obtained. COMPARISON: Ultrasound 10/25/2021 FINDINGS: The thyroid is absent. There is no abnormal tissue in the thyroidectomy bed. IMPRESSION: 1. Thyroidectomy. Reviewed, dictated and finalized at location A. IMPRESSION: 1. Thyroidectomy.
[2022-04-08 09:44] LABS: Basophils Absolute Auto 0.1 K/mm3 (0.0-0.1); Basophils Percent Auto 0.8 % (0.2-1.2); Eosinophils Absolute Auto 0.1 K/mm3 (0-0.3); Eosinophils Percent Auto 2.2 % (0-4.4); Hematocrit 41.5 % (37.0-47.0); Hemoglobin 13.9 g/dL (12.0-15.0); Immature Granulocyte Absolute 0.01 K/mm3 (0.00-0.031); Immature Granulocyte Percent A 0.2 % (0-0.5); Lymphocytes Absolute Auto 2.34 K/mm3 (0.9-3.2); Mean Corpuscular HGB Conc 33.5 g/dl (32-36); Mean Corpuscular Hemoglobin 31.3 pg (26-34); Mean Corpuscular Volume 93.5 fl (80-100); Mean Platelet Volume 8.5 fl (7.4-10.4); Monocytes Absolute Auto 0.5 K/mm3 (0.1-0.6); Monocytes Percent Auto 8.5 % (2.6-8.5); Neutrophils Absolute Auto 3.2 K/mm3 (1.3-6.7); Neutrophils Percent Auto 51.3 % (45.5-73.1); Platelet Count Result 241 k/mm3 (150-375); Red Blood Count 4.44 M/mm3 (4.2-5.4); Red Cell Distribution Width 12.4 % (11.5-14.5); White Blood Count 6.3 K/mm3 (4.5-10.0)
[2022-04-08 14:10] LABS: Alanine Aminotransferase 18 U/L (6-35); Albumin Level 4.3 g/dL (3.5-5.1); Alkaline Phosphatase 120 U/L (38-126); Anion Gap 14 mmol/L (8-16); Aspartate Amino Transferase 22 U/L (14-36); Bilirubin,Total 0.4 mg/dL (0.2-1.3); Blood Urea Nitrogen 18 mg/dL (7-17); Calcium 9.2 mg/dL (8.4-10.2); Carbon Dioxide 23 mmol/L (22-30); Chloride 104 mmol/L (98-107); Estimated Glomerular Filt Rate > 60; Glucose 102 mg/dL (65-110); Potassium 4.4 mmol/L (3.4-5.0); Sodium 141 mmol/L (137-145)
[2022-04-11 04:23] LABS: Thyroglobulin <0.1 ng/mL (2.8-40.9); Thyroglobulin Antibodies <1 IU/mL (<=1)
== END 2022-04-08 08:59 | disposition home or self-care (01) ==
PROVIDERS: PCP Internal Medicine; Visit Provider Internal Medicine Hematology & Oncology
DX: C73 Malignant neoplasm of thyroid gland (principal)
CPT/HCPCS: 36415; 76536; 80053; 84432; 85025; 86800

== ENCOUNTER 2022-04-25 09:16 | Outpatient (CLI) | payer MEDICARE, OTHER, SELFPAY | END 2022-04-25 09:17 | disposition home or self-care (01) | LOC: ANHSURGERY 09:26 | PROVIDERS: Visit Provider Surgery | DX: R10.31 Right lower quadrant pain (principal); Z01.818 Encounter for other preprocedural examination | CPT/HCPCS: 36415; 86850; 86900; 86901 ==

== ENCOUNTER 2022-04-29 00:31 | Day surgery (SDC) | payer MEDICARE, OTHER, SELFPAY ==
--- NOTE | 2022-04-24 11:06 | PC.NURSE ---
Report to the Outpatient Waiting Room, entrance under the green pavilion located off [facility], at time _0600 on date _04/29/22 . OR Time: 07 . Time changes happen often and if your time is changed the preop area will call you the afternoon before. - You and your visitor will be asked to self-screen and do not enter if you have any COVID symptoms. - Only one visitor and NO children visitors are allowed at this time. - The patient visitor is requested to leave or wait in car when not with patient due to restrictions. - A mask is required within the hospital. Patients may have clear liquids (water, carbonated beverages, clear teas, apple juice) until 3 hours prior to surgery with a maximum of 20 ounces. - No food from midnight until time of surgery Take the following medications with a SIP of water the morning of surgery: ___TIROSINT Medications to discontinue per physician ALL VITAMINS AND SUPPLEMENTS _3 DAYS PRE OP Date to take last dose____04/25/22 Please no make-up, nail kazakh, hairspray, perfume, deodorant, or body powder the day of surgery. No jewelry (including any body piercings) or valuables the day of surgery, leave them at home. Please take a shower or bath the night before, or the morning of, surgery with an antibacterial soap. Wear comfortable, loose fitting clothing. Children are encouraged to wear pajamas. - Jewelry must be removed prior to entering the operating room. Rings and piercings that are not removed may be cut off. - The hospital will not accept responsibility for valuables. - Please leave all valuables, including medications, at home the day of surgery.HIBICLENS SHOWER MORNING OF SURGERY If you are going home after surgery, a licensed truck driver salesperson must drive you home. - NO public transportation without another adult. - We recommend that an adult stay with you for 24 hours following discharge. - We also recommend that you do not drive, make important decision, drink alcoholic beverages, or take any drugs that were not prescribed by your health care provider for at least 24 hours after your discharge time. For Pediatric surgeries, we recommend two adults accompany the child home (only one inside the building at this time). Follow any additional instructions given to you from your surgeon. If you or anyone in your household have experienced Covid symptoms in the past week, please notify your surgeon or the nurse liaison at the phone number below for possible testing. Telephone instructions given to ___PATIENT and asked if any additional questions and then verbalized understanding. Patient advised to call surgeon office or pre surgery nurse liaison [phone] if any additional questions.
[2022-04-24 11:23] VITALS: BMI 28.1
[2022-04-29] VITALS (8 sets, daily range): BP systolic 108–150; BP diastolic 59–76; PULSE 46–84; RESP 14–16; TEMP 36.1–36.7; O2SAT 99–100
[2022-04-29] MEDS: LACTATED RINGERS 1,000 ML 30 ML IV CONT ×2 (06:15→08:37)
[2022-04-29] MEDS: KETOROLAC 15 MG/ML VIAL (*BKC) IV PUSH (06:29)
[2022-04-29] MEDS: ACETAMINOPHEN 500 MG TABLET 1000 MG PO (06:29)
--- NOTE | 2022-04-29 06:58 | WPDANESEPPF ---
Anes - Initial Pre Proc Eval Procedure: Operation Date: 04/29/22 07:30 Proposed Procedures p Diagnostic Laparoscopy, Possible Robotic Assisted Laparoscopic Right Inguinal Hernia Repair with Mesh - Abisai Wolfe DO Date/Time: 04/29/22 06:58 Surgeon: Abisai Wolfe DO Pre Op Diagnosis: Right Groin Pain Patient Data Age: 67 Gender: F Height: 1.6 m Weight: 72.15 kg Allergies Allergy/AdvReac Type Severity Reaction Status Date / Time levofloxacin Allergy Mild HIVES Verified 04/24/22 10:49 levothyroxine sodium Allergy Unknown hives Verified 04/24/22 10:49 Sulfa (Sulfonamide Allergy Unknown hives Verified 04/24/22 10:49 Antibiotics) amoxicillin [From Augmentin] Allergy Hives Verified 04/24/22 10:50 clavulanic acid Allergy Hives Verified 04/24/22 10:50 [From Augmentin] Home Medications Medication Instructions Recorded Confirmed Type levothyroxine 125 mcg capsule 125 mcg PO DAILY 12/05/20 04/24/22 History (Tirosint) ascorbic acid (vitamin C) 1,000 mg 1 g PO DAILY 04/24/22 04/24/22 History tablet (Vitamin C) calcium carbonate 600 mg calcium 600 mg PO DAILY 04/24/22 04/24/22 History (1,500 mg) tablet (Calcium) cholecalciferol (vitamin D3) 50 50 mcg PO DAILY 04/24/22 04/24/22 History mcg (2,000 unit) capsule cyanocobalamin (vitamin B-12) 5,000 mcg PO DAILY 04/24/22 04/24/22 History 5,000 mcg capsule flaxseed 1,000 mg capsule 1,000 mg PO DAILY 04/24/22 04/24/22 History omega-3 fatty acids 1,000 mg PO DAILY 04/24/22 04/24/22 History peppermint oil 0.2 mL 0.2 ml PO DAILY 04/24/22 04/24/22 History capsule,delayed release turmeric 400 mg capsule 400 mg PO DAILY 04/24/22 04/24/22 History vitamin E 400 unit tablet 268 mg PO DAILY 04/24/22 04/24/22 History Patient hx anesthesia problems: post op nausea/vomiting Family hx anesthesia problems: none Results Review: All pre-operative results and documents have been reviewed as part of the pre-operative evaluation. [facility] Past Medical History Medical History Arthritis Asthma Cholecystectomy planned GERD (gastroesophageal reflux disease) High cholesterol Thyroid cancer Thyroid disease Surgical History Surgical History H/O bilateral oophorectomy H/O thyroidectomy H/O: hysterectomy History of cholecystectomy Hx of breast reduction, elective Family History Family History Other Diabetes mellitus Family history of cardiovascular disease Family history of congestive heart failure Family history of lung disease Family history of thyroid disease Hypertension Social History Social History Smoking packs per day: 0.5 Smoking cigarettes per day: 10.0 Years smoked: 10 Smoking pack-years: 5.00 Smoking status: Former smoker Tobacco type: cigarettes Smoking end date: 08/03/02 Alcohol intake: current Drinks per week: 1 Substance use: never Substance use type: does not use Living arrangements: alone Additional occupation/education comments: [employer] Spiritual care concerns: No Anes - Eval Final PreProcedure Day of Procedure 04/29/22 06:58 Patient weight: overweight Heart: regular rate and rhythm Lungs: decreased breath sounds Airway: Mallampati scale class II Neurological: alert and oriented Last oral intake: >/= 8 hours ASA classification: III Emergent: no Anesthetic plan: proceed Anesthesia type and monitoring: general ETT and standard monitoring Results Review: All pre-operative results and documents have been reviewed as part of the pre-operative evaluation. Informed Consent: The patient's anesthetic plan and its attendant risks and benefits were discussed with the patient/family/POA. Questions were solicited and answers provided to the satisfacti
--- NOTE | 2022-04-29 07:08 | PM.IMHP ---
H&P: HPI History of Present Illness Date/Time: 04/29/22 07:08 Chief Complaint: Right groin pain Narrative: This is a 67-year-old woman who presents with right groin pain. She occasionally feels a bulge, but no definite hernia was identified on physical exam. A CT pelvis was obtained and no hernia was seen on the CT either. She continues to have this pain and an occasional bulge. Review of Systems Review of Systems: All systems reviewed & are unremarkable except as noted in HPI and below Constitutional: Constitutional: Denies chills, Denies fever(s), Denies headache(s) and Denies weight loss Eyes: Eyes: Denies change in vision ENT: Denies dizziness, Denies headache(s), Denies neck mass and Denies throat swelling Cardiovascular: Cardiovascular: Denies chest pain, Denies lightheadedness and Denies dyspnea Respiratory: Respiratory: Denies cough, Denies dyspnea and Denies wheezing Gastrointestinal: Gastrointestinal: Denies abdominal pain, Denies change in bowel habits, Denies nausea and Denies vomiting Genitourinary: Genitourinary: Denies hematuria and Denies dysuria Musculoskeletal: Musculoskeletal: Reports as per HPI Integumentary/Breasts: Skin/Breast: Reports as per HPI Neurologic: Denies dizziness and Denies headache(s) Allergic/Immunologic: Allergic/Immunologic: Denies throat swelling and Denies wheezing PMF Past Medical History Medical History Arthritis Asthma Cholecystectomy planned GERD (gastroesophageal reflux disease) High cholesterol Thyroid cancer Thyroid disease Surgical History Surgical History H/O bilateral oophorectomy H/O thyroidectomy H/O: hysterectomy History of cholecystectomy Hx of breast reduction, elective Family History Family History Other Diabetes mellitus Family history of cardiovascular disease Family history of congestive heart failure Family history of lung disease Family history of thyroid disease Hypertension Social History Social History Smoking packs per day: 0.5 Smoking cigarettes per day: 10.0 Years smoked: 10 Smoking pack-years: 5.00 Smoking status: Former smoker Tobacco type: cigarettes Smoking end date: 08/03/02 Alcohol intake: current Drinks per week: 1 Substance use: never Substance use type: does not use Living arrangements: alone Additional occupation/education comments: Hairdresser Spiritual care concerns: No Meds Home Medications and Allergies Home Medications Medication Instructions Recorded Confirmed Type levothyroxine 125 mcg capsule 125 mcg PO DAILY 12/05/20 04/24/22 History (Tirosint) ascorbic acid (vitamin C) 1,000 mg 1 g PO DAILY 04/24/22 04/24/22 History tablet (Vitamin C) calcium carbonate 600 mg calcium 600 mg PO DAILY 04/24/22 04/24/22 History (1,500 mg) tablet (Calcium) cholecalciferol (vitamin D3) 50 50 mcg PO DAILY 04/24/22 04/24/22 History mcg (2,000 unit) capsule cyanocobalamin (vitamin B-12) 5,000 mcg PO DAILY 04/24/22 04/24/22 History 5,000 mcg capsule flaxseed 1,000 mg capsule 1,000 mg PO DAILY 04/24/22 04/24/22 History omega-3 fatty acids 1,000 mg PO DAILY 04/24/22 04/24/22 History peppermint oil 0.2 mL 0.2 ml PO DAILY 04/24/22 04/24/22 History capsule,delayed release turmeric 400 mg capsule 400 mg PO DAILY 04/24/22 04/24/22 History vitamin E 400 unit tablet 268 mg PO DAILY 04/24/22 04/24/22 History Allergies Allergy/AdvReac Type Severity Reaction Status Date / Time levofloxacin Allergy Mild HIVES Verified 04/24/22 10:49 levothyroxine sodium Allergy Unknown hives Verified 04/24/22 10:49 Sulfa (Sulfonamide Allergy Unknown hives Verified 04/24/22 10:49 Antibiotics) amoxicillin [From Augmentin] Allergy Hives Verified 04/24/22 1
--- NOTE | 2022-04-29 07:10 | WPDHPUPDATE1 ---
History and Physical Update Update Date/Time: 04/29/22 07:10 History and Physical has been reviewed, including an updated exam of the patient. There are NO changes in the patient's condition. Risks, benefits, and alternatives have been discussed and questions answered. Patient agrees to proceed with procedure.
[2022-04-29] MEDS: ceFAZolin 2 GM/D5W 50 ML 2 GM/50 ML BAG IVPB (07:31)
[2022-04-29] MEDS: BUPIVACAINE/EPINEPHRINE 0.25% 50 ML VIAL INFILTRATE (08:03)
--- NOTE | 2022-04-29 08:35 | W.PM.PROC2 ---
Procedure Note - Detailed Date of Procedure 04/29/22 Pre-op Diagnosis Right Groin Pain Post-op Diagnosis Other (Abdominal adhesions) Procedure Performed Laparoscopic enterolysis Surgeon Abisai Wolfe, DO Anesthesia General and Local (0.25% bupivacaine with epinephrine) Indications This is a 67-year-old woman who presented with right groin pain. She has been experiencing pain often on and notices pain and a possible bulge when bending down. No hernia was palpable on exam. She does have a history of multiple abdominal surgeries including a and open hysterectomy. A CT of her pelvis was obtained and there was no evidence of a right inguinal hernia. Patient continued to have pain in this region, therefore decision was made to proceed with diagnostic laparoscopy with possible robotic assisted laparoscopic right inguinal hernia repair with mesh. Findings Diagnostic laparoscopy was performed. The patient was found to have multiple small bowel adhesions up to the abdominal wall in the lower abdomen. These adhesions were were taken down laparoscopically using scissors. Once the adhesions were taken down I was able to adequately visualize the right lower quadrant and right inguinal region. There was no evidence of a right inguinal hernia. No other abdominal abnormalities were noted. Description of Procedure Procedure as well as risks, benefits, and alternatives were discussed with the patient. Written consent was obtained and placed in chart prior to procedure. Patient was brought back to surgical suite. She was placed supine on operating table. Time-out was done to confirm patient and procedure. She was then intubated by the anesthesia department. Her abdomen was prepped and draped in sterile fashion using chlorhexidine prep. 0.25% bupivacaine with epinephrine was infiltrated locally around each location for port placement. A 5 mm incision was made just superior to the umbilicus and a 5 mm Optiview trocar was advanced to the abdominal layers under direct visualization. Once inside the abdominal cavity, carbon dioxide insufflation was used to create a pneumoperitoneum. The camera was inserted in the abdomen was inspected. The patient was placed in Trendelenburg position. A 5 mm incision was made in the left lateral abdomen and left lower quadrant and 5 mm trocars were placed under direct visualization. A carefully inspected the lower abdomen and took down several small bowel adhesions up to the abdominal wall using laparoscopic curved scissors. These adhesions were taken down until the entire lower abdominal wall and right inguinal region could be identified. There was no evidence of a right inguinal hernia. I then carefully inspected the small bowel to ensure that there were no other abnormalities. One final inspection was made around the entire abdomen no other abnormalities were noted. The patient was then flattened out in bed, the ports were removed under direct visualization, and the pneumoperitoneum was released. The skin of the incisions was approximated using 4-0 Monocryl subcuticular sutures. Exofin glue was then applied on top. The patient was then awakened from anesthesia, extubated, and transferred to recovery. Estimated Blood Loss 5 Complications No immediate complications Condition Stable Disposition Same day [facility] Billing Surgery - Charge Forward: Surgery Billing
[2022-04-29] MEDS: oxyCODONE HCL (*CRX) 5 MG TAB IR PO (09:55)
== END 2022-04-29 10:48 | disposition home or self-care (01) ==
PROVIDERS: PCP Internal Medicine; Visit Provider Surgery
PROC: 8E0Y4CZ Robotic Assisted Procedure of Lower Extremity, Percutaneous Endoscopic Approach (ICD-10-PCS; CPT 49650; principal; 2022-04-29 07:30)
DX: K66.0 Peritoneal adhesions (postprocedural) (postinfection) (principal); E78.00 Pure hypercholesterolemia, unspecified; E89.0 Postprocedural hypothyroidism; Z85.850 Personal history of malignant neoplasm of thyroid; Z87.891 Personal history of nicotine dependence
CPT/HCPCS: 44180; A9270; J0690; J1100; J1885; J2250; J2405; J2704; J3010; J7030; J7120

== ENCOUNTER 2022-09-22 09:12 | Outpatient (CLI) | payer MEDICARE, OTHER, SELFPAY ==
--- NOTE | ~2022-09-22 | MR_ITS ---
EXAMINATION: MR brain IAC wo con DATE: 09/22/2022 10:34 INDICATION: Vertigo. Tinnitus. TECHNIQUE: Magnetic resonance imaging (MRI) of the brain, brainstem, and internal auditory canals was performed without intravenous contrast. COMPARISON: None. FINDINGS: There is a focus of increased T2-weighted signal intensity in the left cerebral white matte r which is normal as an isolated finding. There is no acute ischemic infarct or intracranial hemorrha ge. The ventricles are normal in size. The paranasal sinuses are clear. The orbits are normal. The in ternal auditory canals and inner and middle ears are normal. The mastoid air cells are normal. IMPRESSION: 1. Normal brain. Reviewed, dictated and finalized at location A. R/FINISHER IMPRESSION: 1. Normal brain.
== END 2022-09-22 09:13 | disposition home or self-care (01) ==
PROVIDERS: PCP Internal Medicine; Visit Provider Internal Medicine
DX: R42 Dizziness and giddiness (principal); H93.19 Tinnitus, unspecified ear
CPT/HCPCS: 70551

== ENCOUNTER 2022-10-13 08:24 | Outpatient (CLI) | payer MEDICARE, OTHER, SELFPAY ==
--- NOTE | ~2022-10-13 | US_ITS ---
EXAMINATION: US soft tissue head and neck DATE: 10/13/2022 09:04 INDICATION: Papillary thyroid carcinoma. TECHNIQUE: Multiple ultrasound images of the thyroid were obtained. COMPARISON: Ultrasound 04/08/2022 FINDINGS: The thyroid is absent. There is no abnormal tissue in the thyroidectomy bed. There are no pathologica lly enlarged lymph nodes. IMPRESSION: 1. Thyroidectomy. Reviewed, dictated and finalized at location A. IMPRESSION: 1. Thyroidectomy.
== END 2022-10-13 08:25 | disposition home or self-care (01) ==
PROVIDERS: PCP Internal Medicine; Visit Provider Internal Medicine Hematology & Oncology
DX: C73 Malignant neoplasm of thyroid gland (principal); C24.1 Malignant neoplasm of ampulla of Vater; D50.9 Iron deficiency anemia, unspecified
CPT/HCPCS: 76536

== ENCOUNTER 2022-10-13 09:04 | Outpatient (CLI) | payer MEDICARE, OTHER, SELFPAY ==
[2022-10-13 09:29] LABS: Basophils Percent Auto 0.7 % (0.2-1.2); Eosinophils Absolute Auto 0.1 K/mm3 (0-0.3); Eosinophils Percent Auto 1.4 % (0-4.4); Hematocrit 41.3 % (37.0-47.0); Hemoglobin 14.2 g/dL (12.0-15.0); Immature Granulocyte Absolute 0.01 K/mm3 (0.00-0.031); Immature Granulocyte Percent A 0.2 % (0-0.5); Lymphocytes Absolute Auto 1.99 K/mm3 (0.9-3.2); Lymphocytes Percent Auto 33.8 % (18.3-44.2); Mean Corpuscular HGB Conc 34.4 g/dl (32-36); Mean Corpuscular Hemoglobin 31.8 pg (26-34); Mean Corpuscular Volume 92.4 fl (80-100); Mean Platelet Volume 8.1 fl (7.4-10.4); Monocytes Absolute Auto 0.5 K/mm3 (0.1-0.6); Monocytes Percent Auto 8.8 % (2.6-8.5); Neutrophils Absolute Auto 3.2 K/mm3 (1.3-6.7); Neutrophils Percent Auto 55.1 % (45.5-73.1); Platelet Count Result 292 k/mm3 (150-375); Red Blood Count 4.47 M/mm3 (4.2-5.4); Red Cell Distribution Width 11.8 % (11.5-14.5); White Blood Count 5.9 K/mm3 (4.5-10.0)
[2022-10-13 12:52] LABS: Alanine Aminotransferase 20 U/L (6-35); Albumin Level 4.5 g/dL (3.5-5.1); Alkaline Phosphatase 126 U/L (38-126); Anion Gap 7 mmol/L (8-16); Aspartate Amino Transferase 22 U/L (14-36); Blood Urea Nitrogen 16 mg/dL (7-17); Calcium 9.6 mg/dL (8.4-10.2); Carbon Dioxide 27 mmol/L (22-30); Chloride 104 mmol/L (98-107); Estimated Glomerular Filt Rate > 60; Glucose 106 mg/dL (65-110); Potassium 4.3 mmol/L (3.4-5.0); Sodium 138 mmol/L (137-145)
[2022-10-13 13:21] LABS: Thyroid Stimulating Hormone 0.028 uIU/mL (0.465-4.680)
[2022-10-17 05:26] LABS: Thyroglobulin 0.1 ng/mL (2.8-40.9); Thyroglobulin Antibodies <1 IU/mL (<=1)
== END 2022-10-13 09:05 | disposition home or self-care (01) ==
PROVIDERS: PCP Internal Medicine; Visit Provider Internal Medicine Hematology & Oncology
DX: C73 Malignant neoplasm of thyroid gland (principal)
CPT/HCPCS: 36415; 76536; 80053; 84432; 84443; 85025; 86800

== ENCOUNTER 2022-12-09 06:35 | Outpatient (CLI) | payer MEDICARE, OTHER, SELFPAY ==
--- NOTE | ~2022-12-09 | MR_ITS ---
MRI of the abdomen: Clinical indication: Abdominal pain. Technique: Coronal SSFSE ARC, WATER:coronal LAVA-FLEX, Coronal 2D FIESTA FatSat, Axial SSFSE BH ARC, Axial 3D DualEcho BH, Axial SSFSE-IR, Axial DWI b=500, Axial 2D FIESTA FatSat, pre and dynamic postco ntrast Axial LAVA ARC, postcontrast Coronal In and Opposed phase LAVA FLEX. Following intravenous adm inistration of 15 cc MultiHance gadolinium, T1-weighted fat-sat imaging was performed in the axial an d coronal planes. Findings: Gallbladder is absent. The common bile duct is normal in course and caliber. No filling def ects are seen within the CBD. No evidence of intrahepatic biliary ductal dilatation. The pancreatic d uct is normal in size. Liver, spleen, pancreas, adrenals, and left kidney appear normal. Simple right renal cyst noted. The aorta and the paraaortic regions appear normal. No abnormal postcontrast identified. Impression: No significant abnormality seen. Reviewed, dictated and finalized at [facility]. Impression: No significant abnormality seen.
--- NOTE | ~2022-12-09 | MR_ITS ---
MRI of the pelvis CLINICAL HISTORY: Generalized pain TECHNIQUE: Coronal SSFSE ARC, WATER:coronal LAVA-FLEX, Coronal 2D FIESTA FatSat, Axial SSFSE BH ARC, Axial 3D DualEcho BH, Axial SSFSE-IR, Axial DWI b=500, Axial 2D FIESTA FatSat, pre and dynamic postco ntrast Axial LAVA ARC, postcontrast Coronal In and Opposed phase LAVA FLEX. Following intravenous adm inistration of 15 cc MultiHance gadolinium, T1-weighted fat-sat imaging was performed in the axial an d coronal planes. FINDINGS: Patient is post colectomy. No pelvic/adnexal mass seen. Urinary bladder unremarkable. No as cites. No pelvic lymphadenopathy seen. Visualized bowel loops are grossly unremarkable aside from sigmoid diverticulosis. Visualized muscula ture unremarkable. Visualized osseous structures are intact. No abnormal postcontrast enhancement identified. IMPRESSION: Status post hysterectomy. Sigmoid diverticulosis. Reviewed, dictated and finalized at [place] [facility].
== END 2022-12-09 06:36 | disposition home or self-care (01) ==
PROVIDERS: PCP Internal Medicine; Visit Provider Internal Medicine
DX: R10.84 Generalized abdominal pain (principal); K57.30 Diverticulosis of large intestine without perforation or abscess without bleeding
CPT/HCPCS: 72197; 74183; A9577

== ENCOUNTER 2023-01-07 07:30 | Outpatient (CLI) | payer MEDICARE, OTHER, SELFPAY ==
--- NOTE | ~2023-01-07 | MR_ITS ---
MRI of the right knee Clinical history: Pain Technique: Coronal proton density and proton density-weighted images, sagittal proton-density and T2 fat-sat images, and axial proton-density fat-saturated images were acquired. Findings: The anterior and posterior cruciate ligaments are intact. Medial collateral ligament and th e lateral collateral ligament complex are intact. Popliteus tendon is intact. Medial and lateral menisci are intact, without evidence of tear. Articular cartilage in the medial and lateral compartments is well preserved. There is high-grade cho ndromalacia at the central aspect of the femoral trochlea, extending along the medial facet. There is probable mild chondromalacia patella. There are small osteophytes at the lateral joint line and the patella. Extensor mechanism is intact. Small to moderate joint effusion is present. Small Hall cyst present. Impression: Mild to moderate degenerative change of the patellofemoral compartment, as detailed above. Minimal de generative change of the lateral compartment, as detailed above. Oehgt-re-ypyfwzyg joint effusion with small Hall's cyst. No ligamentous injury or meniscal tear identified. Reviewed, dictated and finalized at location . Impression: Mild to moderate degenerative change of the patellofemoral compartment, as deta iled above. Minimal degenerative change of the lateral compartment, as detailed above. Mooev-ad-bsiavupi joint effusion with small Hall's cyst. No ligamentous injury or meniscal tear identified.
== END 2023-01-07 07:31 | disposition home or self-care (01) ==
PROVIDERS: PCP Internal Medicine; Visit Provider Nurse Practitioner Family
DX: M17.11 Unilateral primary osteoarthritis, right knee (principal); M25.461 Effusion, right knee; M71.21 Synovial cyst of popliteal space [Baker], right knee
CPT/HCPCS: 73721

== ENCOUNTER 2023-04-15 08:01 | Outpatient (CLI) | payer MEDICARE, OTHER, SELFPAY ==
[2023-04-15 08:28] LABS: Basophils Absolute Auto 0.1 K/mm3 (0.0-0.1); Basophils Percent Auto 1.1 % (0.2-1.2); Eosinophils Absolute Auto 0.1 K/mm3 (0-0.3); Eosinophils Percent Auto 1.8 % (0-4.4); Hematocrit 39.6 % (37.0-47.0); Hemoglobin 13.5 g/dL (12.0-15.0); Immature Granulocyte Absolute 0.01 K/mm3 (0.00-0.031); Immature Granulocyte Percent A 0.2 % (0-0.5); Lymphocytes Absolute Auto 2.12 K/mm3 (0.9-3.2); Lymphocytes Percent Auto 37.3 % (18.3-44.2); Mean Corpuscular HGB Conc 34.1 g/dl (32-36); Mean Corpuscular Hemoglobin 31.5 pg (26-34); Mean Corpuscular Volume 92.3 fl (80-100); Mean Platelet Volume 8.6 fl (7.4-10.4); Monocytes Absolute Auto 0.4 K/mm3 (0.1-0.6); Monocytes Percent Auto 7.6 % (2.6-8.5); Platelet Count Result 250 k/mm3 (150-375); Red Blood Count 4.29 M/mm3 (4.2-5.4); Red Cell Distribution Width 12.2 % (11.5-14.5); White Blood Count 5.7 K/mm3 (4.5-10.0)
[2023-04-15 10:16] LABS: Alanine Aminotransferase 21 U/L (6-35); Albumin Level 4.4 g/dL (3.5-5.1); Alkaline Phosphatase 121 U/L (38-126); Anion Gap 8 mmol/L (8-16); Aspartate Amino Transferase 24 U/L (14-36); Bilirubin,Total 0.9 mg/dL (0.2-1.3); Blood Urea Nitrogen 17 mg/dL (7-17); Calcium 9.4 mg/dL (8.4-10.2); Carbon Dioxide 23 mmol/L (22-30); Chloride 105 mmol/L (98-107); Estimated Glomerular Filt Rate > 60; Glucose 116 mg/dL (65-110); Potassium 4.1 mmol/L (3.4-5.0); Sodium 136 mmol/L (137-145)
== END 2023-04-15 08:02 | disposition home or self-care (01) ==
LOC: ANHLAB 08:05
PROVIDERS: PCP Internal Medicine; Visit Provider Internal Medicine Hematology & Oncology
DX: C73 Malignant neoplasm of thyroid gland (principal)
CPT/HCPCS: 36415; 80053; 85025

== ENCOUNTER 2023-04-15 09:12 | Outpatient (CLI) | payer MEDICARE, OTHER, SELFPAY ==
--- NOTE | ~2023-04-15 | US_ITS ---
EXAMINATION: US soft tissue head and neck DATE: 04/15/2023 09:39 INDICATION: Papillary thyroid carcinoma. TECHNIQUE: Multiple ultrasound images of the thyroid were obtained. COMPARISON: Ultrasound 10/13/2022 FINDINGS: The thyroid is absent. There is no abnormal tissue in the thyroidectomy bed. There are no pathologica lly enlarged lymph nodes. IMPRESSION: 1. Thyroidectomy. Reviewed, dictated and finalized at location A. IMPRESSION: 1. Thyroidectomy.
== END 2023-04-15 09:13 | disposition home or self-care (01) ==
PROVIDERS: PCP Internal Medicine; Visit Provider Internal Medicine Hematology & Oncology
DX: C73 Malignant neoplasm of thyroid gland (principal)
CPT/HCPCS: 36415; 76536; 80053; 85025

== ENCOUNTER 2023-05-04 08:08 | Outpatient (CLI) | payer MEDICARE, OTHER, SELFPAY ==
[2023-05-04 08:55] LABS: Alanine Aminotransferase 20 U/L (6-35); Albumin Level 4.4 g/dL (3.5-5.1); Alkaline Phosphatase 131 U/L (38-126); Anion Gap 11 mmol/L (8-16); Aspartate Amino Transferase 24 U/L (14-36); Bilirubin,Total 0.8 mg/dL (0.2-1.3); Blood Urea Nitrogen 16 mg/dL (7-17); Calcium 9.6 mg/dL (8.4-10.2); Carbon Dioxide 23 mmol/L (22-30); Chloride 106 mmol/L (98-107); Estimated Glomerular Filt Rate > 60; Glucose 106 mg/dL (65-110); Potassium 4.1 mmol/L (3.4-5.0); Sodium 140 mmol/L (137-145)
[2023-05-04 09:05] LABS: Hemoglobin A1C 5.4 % (<5.7)
[2023-05-04 09:26] LABS: Free T4 Free Thyroxine 1.62 ng/mL (0.78-2.19); Thyroid Stimulating Hormone 0.022 uIU/mL (0.465-4.680)
[2023-05-07 05:25] LABS: Triiodothyronine T3 Free 3.6 pg/mL (2.3-4.2)
[2023-05-09 03:57] LABS: Thyroglobulin <0.1 ng/mL (2.8-40.9); Thyroglobulin Antibodies <1 IU/mL (<=1)
[2023-05-09 07:49] LABS: Insulin Level Total 11.8 uIU/mL (<=18.4)
== END 2023-05-04 08:09 | disposition home or self-care (01) ==
LOC: ANHLAB 08:10
PROVIDERS: PCP Internal Medicine; Visit Provider Internal Medicine Endocrinology, Diabetes & Metabolism
DX: E89.0 Postprocedural hypothyroidism (principal); M85.80 Other specified disorders of bone density and structure, unspecified site; R73.9 Hyperglycemia, unspecified
CPT/HCPCS: 36415; 80053; 82306; 83036; 83525; 84432; 84439; 84443; 84481; 86800

== ENCOUNTER 2023-06-02 08:25 | Outpatient (CLI) | payer MEDICARE, OTHER, SELFPAY ==
--- NOTE | ~2023-06-02 | DEXA_ITS ---
Bone Density Report Name: YOHAN CARR Age: 68 Sex: Female Ethnicity: White Date of : 1955 Indication: osteopenia; cancer; hysterectomy; postmenopausal Referring Provider: OLENA, MICHAEL Gallegos Study: Bone densitometry was performed. Exam Date: June 02, 2023 Accession number: [id number] Bone Density: Region BMD T-score Z-score Classification AP Spine(L1-L4) 0.933 -1.0 0.9 Normal Femoral Neck (Left) 0.752 -0.9 0.8 Normal Total Hip (Left) 0.795 -1.2 0.2 Osteopenia Femoral Neck (Right) 0.756 -0.8 0.9 Normal Total Hip (Right) 0.755 -1.5 -0.1 Osteopenia Total Hip Mean 0.775 -1.4 0.1 Osteopenia World Health Organization criteria for BMD impression classify patients as: Normal (T-score at or above -1.0), Osteopenia (T-score between -1.0 and -2.5), or Osteoporosis (T-score at or below -2.5). 10-year Fracture Risk(1): Major Osteoporotic Fracture 8.2% Hip Fracture 0.7% Reported Risk Factors: [place] (), Neck BMD=0.752, BMI=29.8 (1) FRAX(R) Version 3.08. Fracture probability calculated for an untreated patient. Fracture probability may be lower if the patient has received treatment. Previous Exams: Region Exam Age BMD T-score BMD Change BMD Change Date g/cm2 vs Baseline vs Previous Total Hip(Left) 06/02/2023 68 0.795 -1.2 -0.056 (-6.6%) -0.056 (-6.6%) 01/18/2021 65 0.850 -0.8 Total Hip(Right) 06/02/2023 68 0.755 -1.5 -0.029 (-3.8%) -0.029 (-3.8%) 01/18/2021 65 0.784 -1.3 *Denotes significance at 95% confidence level, LSC for Total Hip = 0.027 g/cm2 Clinical Information Provided by Patient: Has used the following medications: Vitamin D Has the following medical conditions: Cancer, Hysterectomy Patient maximum height was 62.5 Menopause Age: 35 No regular weight bearing exercise Drinks caffeinated beverages Onset of menses at age 10 Number of children 2 Impression: The patient has low bone mass, based on the Right Total Hip T-score. The patient has an estimated ten-year risk of hip fracture of 0.7% and an estimated ten-year risk of major fracture of 8.2%, based on the WHO FRAX algorithm. The BMD for the Total Hip(Left) decreased, changing by -6.6% since the last DXA exam. The BMD for the Total Hip(Right) decreased, changing by -3.8% since the last DXA exam. Discussion: BONE DENSITY IS LOW AT ONE OR MORE SKELETAL SITES. This patient's lowest T-score is low at one or more skeletal sites. It meets the World Health Organization's (WHO) criter
== END 2023-06-02 08:26 | disposition home or self-care (01) ==
PROVIDERS: PCP Internal Medicine; Visit Provider Internal Medicine Endocrinology, Diabetes & Metabolism
DX: M85.852 Other specified disorders of bone density and structure, left thigh (principal); M85.851 Other specified disorders of bone density and structure, right thigh
CPT/HCPCS: 77080

== ENCOUNTER 2023-09-08 08:34 | Outpatient (CLI) | payer MEDICARE, OTHER, SELFPAY ==
--- NOTE | ~2023-09-08 | MR_ITS ---
EXAMINATION: MR lumbar spine wo con DATE: 09/08/2023 09:57 INDICATION: Chronic low back pain. TECHNIQUE: Magnetic resonance imaging (MRI) of the lumbar spine was performed without intravenous con trast. Sequences included sagittal T2-weighted FSE, sagittal T2-weighted FS FSE, sagittal T1-weighted FSE, and axial T2-weighted FSE. COMPARISON: None FINDINGS: There is 5 degrees dextrocurvature of lumbar spine. Vertebral body heights are normal. S1 i s a transitional segment. There is a hemangioma in T12 vertebral body. There is mildly decreased disc height at L3-L4 and L4-L5 and severely decreased disc height at L5-S1. The distal spinal cord signal intensity is normal. The conus medullaris is at T12-L1. There is a 3.8 cm cyst in right kidney. The following disc levels are specifically discussed: L1-L2: The disc does not extend beyond the endplate margin. There is mild bilateral facet joint osteo arthritis. There is no neural foraminal stenosis. There is no central canal stenosis. L2-L3: The disc does not extend beyond the endplate margin. There is moderate bilateral facet joint o steoarthritis. There is no neural foraminal stenosis. There is no central canal stenosis. L3-L4: There is a left foraminal protrusion. There is severe bilateral facet joint osteoarthritis. Th ere is mild left neural foraminal stenosis. There is no central canal stenosis. L4-L5: The disc is bulging. There is severe bilateral facet joint osteoarthritis. There is mild bilat eral neural foraminal stenosis. There is no central canal stenosis. L5-S1: The disc is bulging and has an annular fissure. There is severe bilateral facet joint osteoart hritis. There is mild bilateral neural foraminal stenosis. There is no central canal stenosis. IMPRESSION: 1. Severe lower lumbar spondylosis. Reviewed, dictated and finalized at location A. ORK STRATEGIST
== END 2023-09-08 08:35 | disposition home or self-care (01) ==
PROVIDERS: PCP Internal Medicine; Visit Provider Internal Medicine
DX: M47.896 Other spondylosis, lumbar region (principal)
CPT/HCPCS: 72148

== ENCOUNTER 2023-11-27 11:43 | Outpatient (CLI) | payer MEDICARE, OTHER, SELFPAY ==
[2023-11-27 12:15] LABS: Alanine Aminotransferase 17 U/L (6-35); Albumin Level 4.5 g/dL (3.5-5.1); Alkaline Phosphatase 133 U/L (38-126); Anion Gap 8 mmol/L (4-12); Aspartate Amino Transferase 21 U/L (14-36); Bilirubin,Total 0.7 mg/dL (0.2-1.3); Blood Urea Nitrogen 15 mg/dL (7-17); Calcium 9.8 mg/dL (8.4-10.2); Carbon Dioxide 21 mmol/L (22-30); Chloride 108 mmol/L (98-107); Estimated Glomerular Filt Rate > 60; Glucose 103 mg/dL (65-110); Sodium 137 mmol/L (137-145)
[2023-11-27 12:27] LABS: Parathyroid Intact 54.8 pg/mL (7.5-53.5)
[2023-11-27 12:35] LABS: Free T4 Free Thyroxine 1.54 ng/mL (0.78-2.19); Vitamin D 25 Hydroxy 41.6 ng/mL
[2023-11-27 12:45] LABS: Thyroid Stimulating Hormone 0.031 uIU/mL (0.465-4.680)
[2023-11-30 12:38] LABS: Ionized Calcium 5.1 mg/dL (4.7-5.5)
[2023-11-30 13:12] LABS: Thyroglobulin <0.1 ng/mL; Thyroglobulin Antibodies <1 IU/mL (< or = 1)
== END 2023-11-27 11:44 | disposition home or self-care (01) ==
LOC: ANHLAB 11:46
PROVIDERS: PCP Internal Medicine; Visit Provider Internal Medicine
DX: C73 Malignant neoplasm of thyroid gland (principal); E03.9 Hypothyroidism, unspecified; E20.9 Hypoparathyroidism, unspecified
CPT/HCPCS: 36415; 80053; 82306; 82330; 83970; 84432; 84439; 84443; 86800

== ENCOUNTER 2024-01-11 08:21 | Outpatient (CLI) | payer MEDICARE, OTHER, SELFPAY ==
[2024-01-11 08:45] LABS: Basophils Absolute Auto 0.1 K/mm3 (0.0-0.1); Basophils Percent Auto 0.9 % (0.2-1.2); Eosinophils Absolute Auto 0.2 K/mm3 (0-0.3); Eosinophils Percent Auto 2.8 % (0-4.4); Hematocrit 40.9 % (37.0-47.0); Hemoglobin 13.8 g/dL (12.0-15.0); Immature Granulocyte Absolute 0.01 K/mm3 (0.00-0.031); Immature Granulocyte Percent A 0.2 % (0-0.5); Lymphocytes Absolute Auto 2.02 K/mm3 (0.9-3.2); Lymphocytes Percent Auto 35.2 % (18.3-44.2); Mean Corpuscular HGB Conc 33.7 g/dl (32-36); Mean Corpuscular Hemoglobin 31.5 pg (26-34); Mean Corpuscular Volume 93.4 fl (80-100); Mean Platelet Volume 8.2 fl (7.4-10.4); Monocytes Absolute Auto 0.5 K/mm3 (0.1-0.6); Neutrophils Percent Auto 52.9 % (45.5-73.1); Platelet Count Result 260 k/mm3 (150-375); Red Blood Count 4.38 M/mm3 (4.2-5.4); Red Cell Distribution Width 12.2 % (11.5-14.5); White Blood Count 5.7 K/mm3 (4.5-10.0)
[2024-01-11 09:31] LABS: Alanine Aminotransferase 15 U/L (6-35); Albumin Level 4.2 g/dL (3.5-5.1); Alkaline Phosphatase 138 U/L (38-126); Anion Gap 8 mmol/L (4-12); Aspartate Amino Transferase 21 U/L (14-36); Blood Urea Nitrogen 15 mg/dL (7-17); Calcium 9.4 mg/dL (8.4-10.2); Carbon Dioxide 23 mmol/L (22-30); Chloride 109 mmol/L (98-107); Estimated Glomerular Filt Rate > 60; Glucose 105 mg/dL (65-110); Potassium 4.1 mmol/L (3.4-5.0); Sodium 140 mmol/L (137-145)
[2024-01-11 09:59] LABS: Thyroid Stimulating Hormone 0.028 uIU/mL (0.465-4.680)
[2024-01-14 15:23] LABS: Thyroglobulin <0.1 ng/mL; Thyroglobulin Antibodies <1 IU/mL (< or = 1)
== END 2024-01-11 08:22 | disposition home or self-care (01) ==
LOC: ANHLAB 08:27
PROVIDERS: PCP Internal Medicine; Visit Provider Internal Medicine Hematology & Oncology
DX: C73 Malignant neoplasm of thyroid gland (principal); I10 Essential (primary) hypertension
CPT/HCPCS: 36415; 80053; 84432; 84443; 85025; 86800

== ENCOUNTER 2024-01-11 09:37 | Outpatient (CLI) | payer MEDICARE, OTHER, SELFPAY ==
--- NOTE | ~2024-01-11 | US_ITS ---
Soft tissue definite ULTRASOUND (Doppler ultrasound interrogation techniques used as needed for this exam.) Ordering provider: Hai Marroquin MD History: . PAPILLARY THYROID CARCINOMA . Comparison: None. FINDINGS/impression: Status post thyroidectomy. No definite abnormality seen. Reviewed, dictated and finalized at location A.
== END 2024-01-11 09:38 | disposition home or self-care (01) ==
LOC: ANHIMG 09:40
PROVIDERS: PCP Internal Medicine; Visit Provider Internal Medicine Hematology & Oncology
DX: C73 Malignant neoplasm of thyroid gland (principal)
CPT/HCPCS: 36415; 76536; 80053; 84432; 84443; 85025; 86800

== ENCOUNTER 2024-08-30 09:44 | Outpatient (CLI) | payer MEDICARE, OTHER, SELFPAY ==
--- OUTSIDE RECORDS SUMMARY | 2024-08-30 10:29 | XMS_ITS | Encounter Summary ---
Author Organization [facility] Healthcare Address [address] [place] [address] Care Team Providers Care Delinquent Tax Collector Name Role Phone Elizabet Campos MD Primary Care Provider + [phone] Isac Nolasco MD Unavailable [phone] Hayley Walsh MD Unavailable [phone] Encounter Details Date Type Department Care Team (Late st Contact Info) Description 11/20/2020 Telephone [facility] [address] [place] [address] Sugey Shah, RT Social History Tobacco Use Types Packs/Day Years Used Date Smoking Tobacco: Former Cigarettes 0.5 17 1 985 - 2001 Smokeless Tobacco: Never Alcohol Use Standard Drinks/Week Comments Yes 1 (1 standard drink = 0.6 oz pur e alcohol) rarely Comments No Sex and Gender Information Value Date Recorded Sex Assigned at Not on file Legal Sex 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
--- OUTSIDE RECORDS SUMMARY | 2024-08-30 10:29 | XMS_ITS ---
Author Organization [facility] Address [address] [place] [address] Care Team Providers Care Cost Accounting Analyst Name Role Phone Elizabet Campos MD Primary Care Provider [phone] Hayley Walsh MD Unavailable [phone] Active Problems Problem Noted Date Diagnosed Date Papillary thyroid carcinoma 08/16/2020 Overview (08/16/2020): Added automatically from request for surgery [id number] Metastatic papillary carcinoma 08/16/2020 Overview (08/16/2020): Added automatically from request for surgery [id number] Thyroid cancer 04/28/2018 Cancer Staging:Pathologic stage from 12/01/2017:Stage I(pT2, pNX, cM0, Age at diagnosis: >= 55 years) - Signed by Butch Bullock MD on 05/17/2018 Lumbar radiculopathy 05/24/2015 Arthralgia of hip 12/07/2014 Current Oncology Plans No current plan information found. Past Plans No past plan information found. Radiation Treatments * Plan Last Treated On Elapsed Days Fractions Treated Prescribed Fraction Dose Prescribed Total Dose Thyroid_2 07/15/2019 0 1 100 cGy 100 cGy Thyroid 1 05/14/2018 0 1 30 cGy 30 cGy Reference Point Last Treated On Elapsed Days Session Dose Total Dose Thyroid_2 07/15/2019 0 100 cGy 100 cGy Thyroid 1 05/14/2018 0 30 cGy 30 cGy
--- OUTSIDE RECORDS SUMMARY | 2024-08-30 10:29 | XMS_ITS | Referral Summary ---
Author Organization [facility] Address [address] [place] [address] Care Team Providers Care Hot Dog Vender Name Role Phone Elizabet Campos MD Primary Care Provider [phone] Hayley Walsh MD Unavailable [phone] Allergies Active Allergy Reactions Criticality Noted Date Comments Amoxicillin-Pot Clavulanate Hives Medium 05/29/20 20 Iodinated Contrast Media Hives Medium 08/30/2020 Levofloxacin Hives Medium 03/08/2018 Levothyroxine Hives Medium 07/14/2018 Sulfa (Sulfonamide Antibiotics) Hives Medium Medications omega 6-glt-mnb-fish oil 1,000 mg (120 mg-180 mg) capsuleIndicati ons:OTC Take 1 capsule by mouth every morning Active aloe vera, bulk, oilIndications: OTC 1 capsule every morning Active flaxseed oil 1,000 mg capsuleIndicati ons:OTC Take 1 capsule by mouth every morning Active cranberry 500 mg capsuleIndicati ons:OTC Take 3 capsules by mouth every morning Active vitamin E (vitamin E) 400 unit capsuleIndicati ons:OTC Take 400 Units by mouth every morning Active ascorbic acid (vitamin C) 1,000 mg tabletIndicatio ns:OTC Take 1,000 mg by mouth every morning Active cholecalciferol (VITAMIN D-3) 25 mcg (1,000 unit) tabletIndicatio ns:otc Take 1,000 Units by mouth every morning Active cyanocobalamin (Vitamin B-12) 1,000 mcg tabletIndicatio ns:Prevention of Vitamin B12 Deficiency,otc Take 1,000 mcg by mouth every morning Active ibuprofen (ibuprofen) 200 mg tab/cap Take 200 mg by mouth every 6 (six) hours as needed for pain Active [place] Thyroid 60 mg tabletIndicatio ns:hypothyroidi sm Take 60 mg by mouth every morning 08/13/2020 Active oxyCODONE (ROXICODONE) 5 mg immediate release tabletIndicatio ns:Pain Take 1 tablet (5 mg total) by mouth every 4 (four) hours as needed for pain 15 tablet 09/13/2020 Active calcium carbonate (OS-BATOOL) 1,250 MG (500 mg of elemental calcium) tabletIndicatio ns:hypocalcemia Take 1 tablet (1,250 mg total) by mouth every 8 (eight) hours 1 tab PO Q8H x 1 wk; then 1 tab PO Q12H x 1 wk; then 1 tab PO Daily x 1 wk 42 tablet 1 09/13/2020 Active Active Problems Problem Noted Date Diagnosed Date Papillary thyroid carcinoma 08/16/2020 Overview (08/16/2020): Added automatically from request for surgery [id number] Metastatic papillary carcinoma 08/16/2020 Overview (08/16/2020): Added automatically from request for surgery [id number] Thyroid cancer 04/28/2018 Cancer Staging:Pathologic stage from 12/01/2017:Stage I(pT2, pNX, cM0, Age at diagnosis: >= 55 years) - Signed by Butch Bullock MD on 05/17/2018 Lumbar radiculopathy 05/24/2015 Arthralgia of hip 12/07/2014 Social History Tobacco Use Types Packs/Day Years Used Date Smoking Tobacco: Former Cigarettes 0.5 17 1 985 - 2001 Smokeless Tobacco: Never Tobacco Cessation:Counseling Given: Not Answered Alcohol Use Standard Drinks/Week Comments Yes 1 (1 standard drink = 0.6 oz pur e alcohol) rarely Comments No Sex and Gender Information Value Date Recorded Sex Assigned at Not on file 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 Gender Identity Not on file Sexual Orientation Not on file Last Filed Vital Signs Vital Sign Reading Time Taken Comments Blood Pressure 120/59 09/13/2020 7:50 AM CLOTH SHEARING SUPERVISOR Pulse 60 09/13/2020 7:50 AM CLOTH SHEARING SUPERVISOR Temperature 36.6 ??C (97.8 ??F) 09/13/2020 7:50 AM CS T Respiratory Rate 16 09/13/2020 7:50 AM CLOTH SHEARING SUPERVISOR Oxygen Saturation 97% 09/13/2020 7:50 AM CLOTH SHEARING SUPERVISOR Inhaled Oxygen Concentration - - Weight 80.8 kg (178 lb 3.2 oz) 04/09/2023 11:30 AM CDT Height 160 cm (5' 3 ) 04/09/2023 11:30 AM CDT Body Mass Index 31.57 04/09/2023 11:30 AM CDT Plan of Treatment Not on file Insurance [id number] [place] [address] CLAIMS MEDICARE FOR LIFE [facility] CLAIMS [facility] MEDICARE MEDICARE Advance Directives For more information, please contact: [phone] * Full Code (Latest Code Status on File) Date Activated Date Inactivated Comments 09/12/2020 3:13 PM 09/13/2020 3:52 PM Care Teams Hot Dog Vender Relationship Specialty Start Date End Date Elizabet Campos MD [address] [place] [address] PCP - General 04/27/18 Hayley Walsh MD [address] [place] [address] Referring Physician Internal Medicine 04/28/18
--- OUTSIDE RECORDS SUMMARY | 2024-08-30 10:29 | XMS_ITS | Encounter Summary ---
Author Organization [facility] Address [address] [place] [address] Care Team Providers Care Tube Machine Operator Helper Name Role Phone Elizabet Campos MD Primary Care Provider + Encounter Details Date Type Department Care Team (Late st Contact Info) Description 03/16/2018 Chart Note [facility] Radiation Therapy [address] [place] [address] [place] [address] [place] [address] Social History Tobacco Use Types Packs/Day Years Used Date Smoking Tobacco: Former Cigarettes Q uit: 02/01/2002 Smokeless Tobacco: Never Alcohol Use Standard Drinks/Week Comments Yes 0 (1 standard drink = 0.6 oz pur e alcohol) occasionally Comments No Sex and Gender Information Value Date Recorded Sex Assigned at Not on file Legal Sex Female 8:51 AM CDT Gender Identity Not on file Sexual Orientation Not on file documented as of this encounter Plan of Treatment Upcoming Encounters Date Type Department Care Team (Late Contact Info) Description 10/10/2024 10:15 AM CDT Office Visit [facility] Oncology and Hematology - [place] [address] [place] [address] Hai Marroquin MD [address] [facility] [address] [place] [address] documented as of this encounter Visit Diagnoses Not on filedocumented in this encounter Care Teams Tube Machine Operator Helper Relationship Specialty Start Date End Date Elizabet Campos MD [address] [place] [address] PCP - General Internal Medicine 02/01/18 documented as of this encounter
--- OUTSIDE RECORDS SUMMARY | 2024-08-30 10:29 | XMS_ITS | Clinical Summary ---
Author Organization [facility] Address [address] [place] [address] Care Team Providers Care Deli/Bakery Associate Name Role Phone Elizabet Campos MD Primary Care Provider [phone] Hayley Walsh MD Unavailable [phone] Allergies Active Allergy Reactions Criticality Noted Date Comments Amoxicillin-Pot Clavulanate Hives Medium 05/29/20 20 Iodinated Contrast Media Hives Medium 08/30/2020 Levofloxacin Hives Medium 03/08/2018 Levothyroxine Hives Medium 07/14/2018 Sulfa (Sulfonamide Antibiotics) Hives Medium Medications omega 8-wfu-ihh-fish oil 1,000 mg (120 mg-180 mg) capsuleIndicati [...] (six) hours as needed for pain Active [place] Thyroid 60 mg tabletIndicatio ns:hypothyroidi sm Take [...] (08/16/2020): Added automatically from request for surgery [id number] Metastatic papillary carcinoma 08/16/2020 Overview (08/16/2020): Added automatically from request for surgery [id number] Thyroid cancer 04/28/2018 Cancer Staging:Pathologic stage from 12/01/2017:Stage I(pT2, pNX, cM0, Age at diagnosis: >= 55 years) - Signed by Butch Bullock MD on 05/17/2018 Lumbar radiculopathy 05/24/2015 Arthralgia of hip 12/07/2014 Surgical History Surgery Date Site/Laterality Comments CHOLECYSTECTOMY SECTION HYSTERECTOMY REDUCTION MAMMAPLASTY THYROIDECTOMY, PARTIAL 12/2017 & 01/2018 RT-12/2017, L-01/2018 OTHER SURGICAL HISTORY 08/03/2009 - 08/02/2010 Breast reduction CHOLECYSTECTOMY 08/03/1998 - 08/02/1999 Medical History Medical History Date Comments IBS (irritable bowel syndrome) Asthma GERD (gastroesophageal reflux disease) Pneumonia 2018 Hypothyroid Family History Medical History Relation Name Comments Cancer Father Family history of malignant neoplasm - (Added by TW Conv) Diabetes Father Family history of diabetes mellitus - (Added by TW Conv) Heart disease Father Family history of cardiac disorder - (Added by TW Conv) Hypertension Father Family history of hypertension - (Added by TW Conv) Stroke Father Family history of cerebrovascular accident - (Added by TW Conv) Breast cancer Mother Cancer Mother Family history of malignant neoplasm - (Added by TW Conv) Diabetes Mother Family history of diabetes mellitus - (Added by TW Conv) Heart disease Mother Family history of cardiac disorder - (Added by TW Conv) Stroke Mother Family history of cerebrovascular accident - (Added by TW Conv) Relation Name Status Comments Father Mother Social History Tobacco Use Types Packs/Day Years [...] on file Legal Sex Female 4:01 AM BAND INSTRUMENT MAKER Gender Identity Not on file Sexual Orientation Not on file Obstetrics History Comments Hysterectomy 1989 Last Filed Vital Signs Vital Sign Reading Time Taken Comments Blood Pressure 120/59 09/13/2020 7:50 AM BAND INSTRUMENT MAKER Pulse 60 09/13/2020 7:50 AM BAND INSTRUMENT MAKER Temperature 36.6 ??C (97.8 ??F) 09/13/2020 7:50 AM CS T Respiratory Rate 16 09/13/2020 7:50 AM BAND INSTRUMENT MAKER Oxygen Saturation 97% 09/13/2020 7:50 AM BAND INSTRUMENT MAKER Inhaled Oxygen Concentration - - Weight 80.8 kg (178 lb 3.2 oz) 04/09/2023 11:30 AM CDT Height 160 cm (5' 3 ) 04/09/2023 11:30 AM CDT Body Mass Index 31.57 04/09/2023 11:30 AM CDT Plan of Treatment Health Maintenance Due Date Last Done Comments Colon Cancer Screening-Colonoscopy 1955 Depression Screening 1955 Hepatitis C Screening 1955 Osteoporosis Screening-Bone Density Scan 1955 Pneumococcal vaccine 65+ (1 of 2 - PCV) 1961 DTaP/Tdap/Td Vaccine (1 - Tdap) 1966 Hepatitis B Screening 1973 Zoster Vaccine (1 of 2) 1974 Breast Cancer Screening-Mammogram 10/07/2019 019 Well Visit 65+ 2020 Fall Risk Assessment 09/12/2021 09/12/2020 Influenza Vaccine (#1) 20[id number] [place] [address] MEDICARE [facility] FOR LIFE [facility] MEDICARE MEDICARE Advance Directives For more information, please contact: [phone] * Full Code (Latest Code Status on File) Date Activated Date Inactivated Comments 09/12/2020 3:13 PM 09/13/2020 3:52 PM Care Teams Deli/Bakery Associate Relationship Specialty Start Date End Date Elizabet Campos MD [address] [place] [address] PCP - General 04/27/18 Hayley Walsh MD [address] [place] [address] Referring Physician Internal Medicine 04/28/18
--- OUTSIDE RECORDS SUMMARY | 2024-08-30 10:29 | XMS_ITS | Clinical Summary ---
Author Organization [facility] Address [address] [place] [address]. [place], [place] [address] [place] [address] Care Team Providers Care Teacher'S Assistant Name Role Phone Elizabet Campos MD Primary Care Provider [phone] Social History Tobacco Use Types Packs/Day Years Used Date Smoking Tobacco: Former Comments Unknown Sex and Gender Information Value Date Recorded Sex Assigned at Not on file Legal Sex Female 4:55 PM CDT Gender Identity Not on file Sexual Orientation Not on file Last Filed Vital Signs Vital Sign Reading Time Taken Comments Blood Pressure 116/80 10/20/2013 1:04 PM CDT lef t Pulse 80 10/20/2013 1:03 PM CDT Temperature - - Respiratory Rate 16 10/20/2013 1:03 PM CDT Oxygen Saturation - - Inhaled Oxygen Concentration - - Weight 74.8 kg (165 lb) 10/20/2013 1:03 PM CDT Height 160 cm (5' 3 ) 10/20/2013 1:03 PM CDT Body Mass Index 29.23 10/20/2013 1:03 PM CDT Plan of Treatment Health Maintenance Due Date Last Done Comments Colorectal Cancer Screening Colonoscopy (10 Years) 1955 Hepatitis C 1973 DTaP, Tdap and Td Vaccines ( 1 - Tdap) 1974 Mammogram Screening 1995 Zoster Vaccines (1 of 2) 2005 Annual Medicare Wellness Visit 2020 Dexa Scan (General) 2020 Pneumococcal Vaccine: 65+ Ye ars (1 of 1 - PCV) 2020 COVID-19 Vaccine (2023-2 5 season) 2024 Influenza Adult (#1) 2024 RSV Immunization or 60+ Years (1 - 1-dose 75+ series) 2030 Meningococcal B Vaccine Aged Out No l onger eligible based on patient's age to complete this topic Meningococcal Vaccine Aged Out No nieves ross eligible based on patient's age to complete this topic RSV Immunizations Under 20 Months Aged Out No longer eligible based on patient's age to complete this topic Insurance MEDICARE [facility] Care Teams Teacher'S Assistant Relationship Specialty Start Date End Date Elizabet Campos MD [address] [place] [address] PCP - General INTERNAL MEDICINE 12/14/17
--- OUTSIDE RECORDS SUMMARY | 2024-08-30 10:29 | XMS_ITS | Encounter Summary ---
Author Organization [facility] Address [address] [place] [address]. [place] [address] [place] [address] Care Team Providers Care Silk Screen Etcher Name Role Phone Elizabet Campos MD Primary Care Provider [phone] Encounter Details Date Type Department Care Team (Late st Contact Info) Description 10/17/2017 Abstract [facility] CONVERSION [address] [place] [address] , Generic Conversion, Social History Tobacco Use Types Packs/Day Years [...] on filedocumented in this encounter Care Teams Silk Screen Etcher Relationship Specialty Start Date End Date Elizabet Campos MD [address] [place] [address] PCP - General INTERNAL MEDICINE 12/14/17 documented as of this encounter
--- OUTSIDE RECORDS SUMMARY | 2024-08-30 10:30 | XMS_ITS | Clinical Summary ---
Author Organization [facility] Address [address] [facility] [place] [address] Care Team Providers Care Juvenile Correctional Officer Name Role Phone Elizabet Campos MD Primary Care Provider + Allergies Active Allergy Reactions Criticality Noted Date Comments Amoxicillin-Pot Clavulanate Hives High 05/29/20 20 Iodinated Contrast Media Hives High 08/30/2020 Iodine Other (See Comments) 04/25/2021 Levofloxacin Hives High 03/08/2018 Levothyroxine Hives High 07/14/2018 Penicillins Other (See Comments) 04/25/2021 Sulfa (Sulfonamide Antibiotics) Hives High 06/04 Sulfamethoxazole-Trimethoprim Hives High 2017 Medications ascorbic acid, vitamin C, (VITAMIN C) 1,000 mg Tablet Take 1,000 mg by mouth. Active calcium as carbonate (OS-BATOOL) 1,250 mg (500 mg elemental) tablet Take 1,250 mg by mouth post-proc every 8 hours. Active cholecalciferol , vitamin D3, 1,000 unit Take 1,000 Units by mouth. Active ibuprofen (MOTRIN) 200 mg tablet Take 200 mg by mouth. Active [id number] -fish oil 1,000 mg Capsule Take 1 Capsule by mouth. Active vitamin E 400 unit capsule Take 400 Units by mouth. Active sodium fluoride, dental gel, (PreviDent) 1.1 % Gel PreviDent 5000 Booster Plus 1.1 % dental paste Active Tirosint 100 mcg Capsule 3 Active Active Problems Problem Noted Date Diagnosed Date Asthma 02/01/2018 Migraines 02/01/2018 Papillary thyroid carcinoma 02/01/2018 Encounters Date Type Department Care Team Description 08/24/2024 External Device Data [facility] ABSTRACTION Provider, Abstract 08/23/2024 External Device Data [facility] ABSTRACTION Provider, Abstract 08/16/2024 External Device Data [facility] ABSTRACTION Provider, Abstract 07/05/2024 External Device Data [facility] ABSTRACTION Provider, Abstract 06/06/2024 External Device Data [facility] ABSTRACTION Provider, Abstract from Last 3 Months Family History Medical History Relation Name Comments Diabetes Father Heart Disease Father High Cholesterol Father Stroke Maternal Grandmother Breast Cancer Mother Thyroid Disease Mother Diabetes Paternal Grandfather Heart Disease Paternal Grandfather High Cholesterol Paternal Grandfather Relation Name Status Comments Father Maternal Grandmother Mother Paternal Grandfather Social History Tobacco Use Types Packs/Day Years Used Date Smoking Tobacco: Former Cigarettes Q uit: 02/01/2002 Smokeless Tobacco: Never Tobacco Cessation:Counseling Given: Not Answered Alcohol Use Standard Drinks/Week Comments Yes 0 (1 standard drink = 0.6 oz pur e alcohol) occasionally Comments No Sex and Gender Information Value Date Recorded Sex Assigned at Not on file Legal Sex Female 8:51 AM CDT Gender Identity Not on file Sexual Orientation Not on file Last Filed Vital Signs Vital Sign Reading Time Taken Comments Blood Pressure 138/81 01/21/2024 10:00 AM CDT Pulse 78 01/21/2024 10:00 AM CDT Temperature 36.6 ??C (97.8 ??F) 01/21/2024 9:54 AM CD T Respiratory Rate 18 01/21/2024 9:54 AM CDT Oxygen Saturation 97% 01/21/2024 9:54 AM CDT Inhaled Oxygen Concentration - - Weight 74.8 kg (165 lb) 01/21/2024 9:54 AM CDT Height 160 cm (5' 3 ) 04/15/2022 10:36 AM CDT Body Mass Index 29.23 04/15/2022 10:36 AM CDT Plan of Treatment Upcoming Encounters Date Type Department Care Team (Late st Contact Info) Description 10/10/2024 10:15 AM CDT Office Visit [facility] Oncology and Hematology - [place] [address] [place] [address] Hai Marroquin MD [address] [facility] [address] [place] [address] Health Maintenance Due Date Last Done Comments Pre-Diabetes and Diabetes Screening 1955 DTAP/TDAP/TD VACCINES (1 - Tdap) 1974 PNEUMOCOCCAL VACCINE 65+ YEA RS (1 of 2 - PCV) 1974 COLORECTAL SCREENING 2000 Colorectal Cancer Screening 2000 FIT-DNA Q 3 years 2000 FIT/FOBT Q 1 year 2000 Flex Sig/CT Colonography Q 5 years 2000 ZOSTER VACCINE (1 of 2) 2005 RSV VACCINE (60+ or ) (1 - Risk 60-74 years 1-dose series) 2015 BREAST CANCER SCREENING 10/07/2019 10/06/2018 INFLUENZA VACCINE (#1) 2024 OSTEOPOROSIS SCREENING Completed 06/02/2023, 2020 Procedures Procedure Name Priority Date/Time Associated Diagnosis Comments MAMMO SCREENING BILAT Routine 10/06/2018 from Last 3 Months or Most Recently Relevant to Health Maintenance Results * MAMMO SCREENING BILAT (10/06/2018) Anatomical Region Laterality Modality Breast Bilateral Other us Abstract Provider MAMMO ORDERABLES Final Result from Last 3 Months or Most Recently Relevant to Health Maintenance Insurance MEDICARE PART A AND B FOR LIFE Care Teams Juvenile Correctional Officer Relationship Specialty Start Date End Date Elizabet Campos MD [address] [place] [id number] PCP - General Internal Medicine 02/01/18
--- OUTSIDE RECORDS SUMMARY | 2024-08-30 10:30 | XMS_ITS | Data Portability ---
Author Organization [place] [employer], Main Office Address [address] [place] [address] Assessment No assessment recorded. Plan of Treatment Reminders Order Date Submit Date Provider Last Modified By Organization Details Last Modified Time Details Appointments None recorded. Lab HbA1c (hemoglobin A1c), blood 2022 023 [email or web address] Not available 3 12:59:26 insulin Ab, serum 2022 023 Not available 3 12:59:25 TSH + free T4, serum 2022 023 [email or web address] Not available 3 12:59:26 T3, free, serum or plasma 2022 023 Not available 3 12:59:26 thyroglobul in + thyroglobul in Ab, serum 2022 023 Not available 3 12:59:26 CMP, serum or plasma 2022 023 [email or web address] Not available 3 12:59:25 vitamin D, 25-hydroxy, total, serum 2022 023 Not available 3 12:59:25 Referral endocrinolo gy referral 2022 023 Shakila Rodriguez MD, [address],, [facility], [place], [address], 3 09:25:33 Procedures None recorded. Surgeries None recorded. Imaging bone density 2022 023 [facility] (Imaging), [address] [place] [address] [address], [place], [address], 3 18:11:41 Medication Orders Tirosint 100 mcg capsule 2022 023 [facility], [address] [place], [address], 09:18:40 Patient TargetsNo targets recorded. Patient InstructionsNo instructions recorded. Reason for Referral Endocrinology Referral for P ostoperative hypothyroidism Referring Physician: Yanelis Martinez, Endocrinology, Encounter Date: 05/08/2023 Results Created Date Observation Date Name Description Value Unit Range Abnormal Flag Note LastModifiedBy Organization Detail LastModifiedTime 05/31/2006/19/2021 THYRO GLOBU MILAGRO BY LCMS thyroglobuli n by lcms <0.2 NG/mL 1.5-38 .5 low This test was devel oped and its perfo rmanc e vinnie cteri stics deter mined by [employer] [facility]. It has not been clear ed or appro escobar by the Food and Drug Admin istra tion. . Accor ding to the Kelvin powell Acade my of Clini nighat Bioch emist ry, the refer ence inter you for Thyro globu milagro (TG) shoul d be relat ed to euthy roid patie nts and not for patie nts who under went thyro idect harper. TG refer ence inter vals for these patie nts depen d on the resid ual mass of the thyro id tissu e left after surge ry. Estab lishi ng a post- opera tive basel ine is recom salbador d. The assay limit of quant itati on is 0.2 ng/mL Perfo rmed at: [facility] [place] [address] [facility] , [place] [address] Lab Direc tor: Olga pham MD, Phone : [phone] Not Available [facility] (Lab) [address] [place], [address], 06/19/2021 10:11:58 05/31/2006/03/2021 THYRO GLOBU MILAGRO ANTIB STEVE thyroglobuli n antibody <1.0 IU/mL 0.0-0. 9 Thyro globu milagro Antib steve measu red by Margot Ballesteros er Metho dolog y Perfo rmed at: - [facility] [address] [facility], [place] [address] Lab Direc tor: Harsha amado PhD, Phone : [phone] Not Available [facility] (Lab) [address] [place], [address], 06/03/2021 16:10:32 05/31/20 21 05/31/2021 VITAM IN D 25-HY DROXY [id number] 42.4 NG/mL 30-100 Vitam in D Statu s: Defic ient: <20 ng/mL Insuf ficie nt: 20-29 ng/mL Suffi cient : 30-10 0 ng/mL Not Available [facility] (Lab) [address] [place], [address], 05/31/2021 19:41:25 05/31/20 21 05/31/2021 TSH thyroid-stim ulating hormone <0.015 uIU/m L 0.465- 4.680 low Not Available [facility] (Lab) [address] [place], [address], 05/31/2021 19:21:09 05/31/20 21 05/31/2021 T3 FREE free T3 3.8 pg/mL 2.77-5 .27 Not Available [facility] (Lab) [address] [place], [address], 05/31/2021 19:06:04 05/31/20 21 05/31/2021 T4 FREE free T4 2.07 NG/dL 0.78-2 .19 Not Available [facility] (Lab) [address] [place], [address], 05/31/2021 19:05:59 05/31/20 21 05/31/2021 COMPR EHENS TERI METAB OLIC PANEL GFR >60 Refer ence Range : [place] ge GFR Healt hy Adult : >60 mL/mi n/1.7 3 m2 Chron ic Kidne y Disea se: 15-60 mL/mi n/1.7 3 m2 Kidne y Failu re: <15/m L/min /1.73 m2 www.n iddk. nih.g ov MDRD study equat ion hasn' t been valid ated in child miki <18 yrs of age, pregn ant women , the elder ly >85 yrs of age, or in some racia l or ethni c subgr oups, suc as Hispa nics. Outsi de the valid ated lanie eters , estim ated GFR is less accur ate requi ring clini nighat judgm ent on a case by case basis . Clini nighat inter preta tion for other races and ages must be made by the clini damien . Futhe rmore , any of th e limit ation s with the use of serum creat inine relat ed to nutri tai l statu s o r medic ation usage hasn' t accou nted for the MDRD Study equat ion. For perso ns < 18 yrs of age, a pedia tric GFR calcu lator can be locat ed on the [facility] websi te: https ://renetta velasco.campos adorno.o rg/pr ofess ional s/kdo qi/gf r_cal culat or Not Available [facility] (Lab) [address] [place], [address], 05/31/2021 18:58:33 05/31/20 21 05/31/2021 COMPR EHENS TERI METAB OLIC PANEL alkaline phosphatase 130 U/L 38-126 high Not Available [facility] (Lab) [address] [place], [address], 05/31/2021 18:58:33 05/31/20 21 05/31/2021 COMPR EHENS TERI METAB OLIC PANEL alanine aminotransfe rase 17 U/L 0-35 Not Available [facility] (Lab) [address] [place], [address], 05/31/2021 18:58:33 05/31/20 21 05/31/2021 COMPR EHENS TERI METAB OLIC PANEL aspartate aminotransfe rase 25 U/L 15-37 Not Available [facility] (Lab) [address] [place], [address], 05/31/2021 18:58:33 05/31/20 21 05/31/2021 COMPR EHENS TERI METAB OLIC PANEL bilirubin, total 0.80 mg/dL 0.20-1 .30 Not Available [facility] (Lab) [address] [place], [address], 05/31/2021 18:58:33 05/31/20 21 05/31/2021 COMPR EHENS TERI METAB OLIC PANEL calcium 10.2 mg/dL 8.4-10 .2 Not Available [facility] (Lab) [address] [place], [address], 05/31/2021 18:58:33 05/31/20 21 05/31/2021 COMPR EHENS TERI METAB OLIC PANEL total protein 7.6 g/dL 6.3-8. 2 Not Available [facility] (Lab) [address] [place], [address], 05/31/2021 18:58:33 05/31/20 21 05/31/2021 COMPR EHENS TERI METAB OLIC PANEL albumin 4.5 g/dL 3.0-4. 4 high Not Available [facility] (Lab) [address] [place], [address], 05/31/2021 18:58:33 05/31/20 21 05/31/2021 COMPR EHENS TERI METAB OLIC PANEL globulin 3.1 g/dL 2.6-4. 2 Not Available [facility] (Lab) [address] [place], [address], 05/31/2021 18:58:33 05/31/20 21 05/31/2021 COMPR EHENS TERI METAB OLIC PANEL A/G ratio 1.5 ratio 1.0-2. 0 Not Available [facility] (Lab) [address] [place], [address], 05/31/2021 18:58:33 05/31/20 21 05/31/2021 COMPR EHENS TERI METAB OLIC PANEL sodium 140 mmol/ L 137-14 5 Not Available [facility] (Lab) [address] [place], [address], 05/31/2021 18:58:33 05/31/20 21 05/31/2021 COMPR EHENS TERI METAB OLIC PANEL potassium 4.4 mmol/ L 3.5-5. 1 Not Available [facility] (Lab) [address] [place], [address], 05/31/2021 18:58:33 05/31/20 21 05/31/2021 COMPR EHENS TERI METAB OLIC PANEL chloride 105 mmol/ L 98-107 Not Available [facility] (Lab) [address] [place], [address], 05/31/2021 18:58:33 05/31/20 21 05/31/2021 COMPR EHENS TERI METAB OLIC PANEL carbon dioxide 25 mmol/ L 22-30 Not Available [facility] (Lab) [address] [place], [address], 05/31/2021 18:58:33 05/31/20 21 05/31/2021 COMPR EHENS TERI METAB OLIC PANEL agap 14.4 mmol/ L 14-22 Not Available [facility] (Lab) [address] [place], [address], 05/31/2021 18:58:33 05/31/20 21 05/31/2021 COMPR EHENS TERI METAB OLIC PANEL glucose 95 mg/dL 70-99 Not Available [facility] (Lab) [address] [place], [address], 05/31/2021 18:58:33 05/31/20 21 05/31/2021 COMPR EHENS TERI METAB OLIC PANEL BUN 17 mg/dL 8-19 Not Available [facility] (Lab) [address] [place], [address], 05/31/2021 18:58:33 05/31/20 21 05/31/2021 COMPR EHENS TERI METAB OLIC PANEL creatinine 0.67 mg/dL 0.66-1 .25 Not Available [facility] (Lab) [address] [place], [address], 05/31/2021 18:58:33 09/25/19 22 10/04/2021 THYRO GLOBU MILAGRO BY LCMS thyroglobuli n by lcms <0.2 NG/mL 1.5-38 .5 low This test was devel oped and its perfo rmanc e vinnie cteri stics deter mined by [facility]. It has not been clear ed or appro escobar by the Food and Drug Admin istra tion. . Accor jamie to the Natcyndi nal Acade my of Clini nighat Bioch emist ry, the refer ence inter you for Thyro globu milagro (TG) shoul d be relat ed to euthy roid patie nts and not for patie nts who under went thyro idect harper. TG refer ence inter vals for these patie nts depen d on the resid ual mass of the thyro id tissu e left after surge ry. Estab lishi ng a post- opera tive basel ine is recom salbador d. The assay limit of quant itati on is 0.2 ng/mL Perfo rmed at: [facility] [place] [address] [facility] , [place] [address] Lab Direc tor: Olga pham MD, Phone : [phone] Not Available [facility] (Lab) [address] [place], [address], 10/04/2021 20:08:47 09/25/19 22 09/28/2021 THYRO GLOBU MILAGRO ANTIB STEVE thyroglobuli n antibody <1.0 IU/mL 0.0-0. 9 Thyro globu milagro Antib steve measu red by Beckm an Coult er Metho dolog y Perfo rmed at: [facility] [address] [facility], [place] [address] Lab Direc tor: Harsha amado PhD, Phone : [phone] Not Available [facility] (Lab) [address] [place], [address], 09/28/2021 15:10:03 09/25/19 22 09/25/2021 TSH thyroid-stim ulating hormone <0.015 uIU/m L 0.465- 4.680 low Not Available [facility] (Lab) [address] [place], [address], 09/25/2021 14:12:52 09/25/19 22 09/25/2021 VITAM IN D 25-HY DROXY [id number] 41.6 NG/mL 30-100 Vitam in D Statu s: Defic ient: <20 ng/mL Insuf ficie nt: 20-29 ng/mL Suffi cient : 30-10 0 ng/mL Not Available [facility] (Lab) [address] [place], [address], 09/25/2021 13:50:13 09/25/19 22 09/25/2021 T3 FREE free T3 4.4 pg/mL 2.77-5 .27 Not Available [facility] (Lab) [address] [place], [address], 09/25/2021 13:47:14 09/25/19 22 09/25/2021 T4 FREE free T4 1.73 NG/dL 0.78-2 .19 Not Available [facility] (Lab) [address] [place], [address], 09/25/2021 13:47:13 09/25/19 22 09/25/2021 PARAT HY.HO RM(PT H)INT ACT-W /O CA intact parathyroid hormone 39.8 pg/mL 24.0-7 8.0 Not Available [facility] (Lab) [address] [place], [address], 09/25/2021 13:45:35 09/25/19 22 09/25/2021 COMPR EHENS TERI METAB OLIC PANEL sodium 141 mmol/ L 137-14 5 Not Available [facility] (Lab) [address] [place], [address], 09/25/2021 13:30:01 09/25/19 22 09/25/2021 COMPR EHENS TERI METAB OLIC PANEL potassium 4.5 mmol/ L 3.5-5. 1 Not Available [facility] (Lab) [address] [place], [address], 09/25/2021 13:30:01 09/25/19 22 09/25/2021 COMPR EHENS TERI METAB OLIC PANEL chloride 107 mmol/ L 98-107 Not Available [facility] (Lab) [address] [place], [address], 09/25/2021 13:30:01 09/25/19 22 09/25/2021 COMPR EHENS TERI METAB OLIC PANEL carbon dioxide 24 mmol/ L 22-30 Not Available [facility] (Lab) [address] [place], [address], 09/25/2021 13:30:01 09/25/19 22 09/25/2021 COMPR EHENS TERI METAB OLIC PANEL agap 14.5 mmol/ L 14-22 Not Available [facility] (Lab) [address] [place], [address], 09/25/2021 13:30:09/25/19 22 09/25/2021 COMPR EHENS TERI METAB OLIC PANEL glucose 97 mg/dL 70-99 Not Available [facility] (Lab) [address] [place], [address], 09/25/2021 13:30:01 09/25/19 22 09/25/2021 COMPR EHENS TERI METAB OLIC PANEL BUN 17 mg/dL 8-19 Not Available [facility] (Lab) [address] [place], [address], 09/25/2021 13:30:01 09/25/19 22 09/25/2021 COMPR EHENS TERI METAB OLIC PANEL creatinine 0.63 mg/dL 0.66-1 .25 low Not Available [facility] (Lab) [address] [place], [address], 09/25/2021 13:30:01 09/25/19 22 09/25/2021 COMPR EHENS TERI METAB OLIC PANEL GFR >60 Refer ence Range : [place] GFR Healt hy Adult : >60 mL/mi n/1.7 3 m2 Chron ic Kidne y Disea se: 15-60 mL/mi n/1.7 3 m2 Kidne y Failu re: <15/m L/min /1.73 m2 www.n iddk. nih.g ov The MDRD study equat ion has not been valid ated in child miki <18 years of age; pregn ant women ; the elder ly >85 years of age; or in some racia l or ethni c subgr oups, such as Hismt nics. Outsi de the valid ated lanie eters , estim ated GFR is less accur ate, requi ring clini nighat judgm ent on a case- by-ca se basis . Clini nighat inter preta tion for other races and ages must be made by the clini damien. The MDRD study equat ion has not been valid ated for the evalu ation of serum creat inine relat ed to nutri tai l statu s or medic ation usage . For perso ns <18 years of age, a pedia tric GFR calcu lator is avail able on the F websi te: https ://renetta w.campos adorno.o jai/pr ofess ional s/kdo qi/gf r_cal culat or Not Available [facility] (Lab) [address] [place], [address], 09/25/2021 13:30:01 09/25/19 22 09/25/2021 COMPR EHENS TERI METAB OLIC PANEL alkaline phosphatase 111 U/L 38-126 Not Available [facility] (Lab) [address] [place], [address], 09/25/2021 13:30:01 09/25/19 22 09/25/2021 COMPR EHENS TERI METAB OLIC PANEL alanine aminotransfe rase 20 U/L 0-35 Not Available [facility] (Lab) [address] [place], [address], 09/25/2021 13:30:01 09/25/19 22 09/25/2021 COMPR EHENS TERI METAB OLIC PANEL aspartate aminotransfe rase 28 U/L 15-37 Not Available [facility] (Lab) [address] [place], [address], 09/25/2021 13:30:01 09/25/19 22 09/25/2021 COMPR EHENS TERI METAB OLIC PANEL bilirubin, total 0.90 mg/dL 0.20-1 .30 Not Available [facility] (Lab) [address] [place], [address], 09/25/2021 13:30:01 09/25/19 22 09/25/2021 COMPR EHENS TERI METAB OLIC PANEL calcium 9.4 mg/dL 8.4-10 .2 Not Available [facility] (Lab) [address] [place], [address], 09/25/2021 13:30:01 09/25/19 22 09/25/2021 COMPR EHENS TERI METAB OLIC PANEL total protein 7.2 g/dL 6.3-8. 2 Not Available [facility] (Lab) [address] [place], [address], 09/25/2021 13:30:01 09/25/19 22 09/25/2021 COMPR EHENS TERI METAB OLIC PANEL albumin 4.3 g/dL 3.0-4. 4 Not Available [facility] (Lab) [address] [place], [address], 09/25/2021 13:30:01 09/25/19 22 09/25/2021 COMPR EHENS TERI METAB OLIC PANEL globulin 2.9 g/dL 2.6-4. 2 Not Available [facility] (Lab) [address] [place], [address], 09/25/2021 13:30:01 09/25/19 22 09/25/2021 COMPR EHENS TERI METAB OLIC PANEL A/G ratio 1.5 ratio 1.0-2. 0 Not Available [facility] (Lab) [address] [place], [address], 09/25/2021 13:30:01 03/17/20 22 03/24/2022 TESTO STERO NE, FREE+ TOTAL LC/MS testosterone , total, lc/MS 7.2 NG/dL 7.0-40 .0 Not Available [facility] (Lab) [address] [place], [address], 03/24/2022 18:08:23 03/17/20 22 03/24/2022 TESTO STERO NE, FREE+ TOTAL LC/MS testosterone , free 0.11 NG/dL 0.10-0 .85 Not Available [facility] (Lab) [address] [place], [address], 03/24/2022 18:08:23 03/17/20 22 03/24/2022 TESTO STERO NE, FREE+ TOTAL LC/MS % free testosterone 1.56 % 0.50-2 .80 Perfo rmed at: - [facility] [place] [address] [facility] [place] [address] Lab Direc tor: Olga pham MD, Phone : [phone] Not Available [facility] (Lab) [address] [place], [address], 03/24/2022 18:08:23 03/17/20 22 03/18/2022 THYRO GLOBU MILAGRO ANTIB STEVE thyroglobuli n antibody <1.0 IU/mL 0.0-0. 9 Thyro globu milagro Antib steve measu red by Margot Ballesteros er Metho dolog y Perfo rmed at: [facility] [address] [place] [address] Lab Direc tor: Harsha amado PhD, Phone : [phone] Not Available [facility] (Lab) [address] [place], [address], 03/18/2022 17:08:53 03/17/20 22 03/18/2022 DHEA- SULFA TE DHEA-sulfate 8.8 ug/dL 20.4-1 86.6 low Perfo rmed at: [facility] [address] [address] [place] [address] Lab Direc tor: Harsha amado PhD, Phone : [phone] Not Available [facility] (Lab) [address] [place], [address], 03/18/2022 08:15:03 03/17/2003/17/2022 TSH thyroid-stim ulating hormone <0.015 uIU/m L 0.465- 4.680 low Not Available [facility] (Lab) [address] [place], [address], 03/17/2022 14:08:14 03/17/20 22 03/17/2022 T4 FREE free T4 2.14 NG/dL 0.78-2 .19 Not Available [facility] (Lab) [address] [place], [address], 03/17/2022 13:56:20 03/17/20 22 03/17/2022 VITAM IN D 25-HY DROXY vd25oh 55.4 NG/mL 30-100 Vitam in D Statu s: Defic ient: <20 ng/mL Insuf ficie nt: 20-29 ng/mL Suffi cient : 30-10 0 ng/mL Not Available [facility] (Lab) [address] [place], [address], 03/17/2022 13:56:15 03/17/20 22 03/17/2022 IRON/ TIBC PANEL total iron binding capacity 390 mcg/d L 265-47 5 Not Available [facility] (Lab) [address] [place], [address], 03/17/2022 13:42:35 03/17/20 22 03/17/2022 IRON/ TIBC PANEL % transferrin saturation 22 % 20-55 Not Available [facility] (Lab) [address] [place], [address], 03/17/2022 13:42:35 03/17/20 22 03/17/2022 IRON/ TIBC PANEL unsaturated iron bind capacity 304 mcg/d L 126-38 2 Not Available [facility] (Lab) [address] [place], [address], 03/17/2022 13:42:35 03/17/20 22 03/17/2022 IRON/ TIBC PANEL iron 86 mcg/d L 42-175 Not Available [facility] (Lab) [address] [place], [address], 03/17/2022 13:42:35 03/17/20 22 03/17/2022 COMPR EHENS TERI METAB OLIC PANEL sodium 138 mmol/ L 137-14 5 Not Available [facility] (Lab) [address] [place], [address], 03/17/2022 13:36:19 03/17/20 22 03/17/2022 COMPR EHENS TERI METAB OLIC PANEL potassium 4.5 mmol/ L 3.5-5. 1 Not Available [facility] (Lab) [address] [facility] [place], [address], 03/17/2022 13:36:19 03/17/20 22 03/17/2022 COMPR EHENS TERI METAB OLIC PANEL chloride 106 mmol/ L 98-107 Not Available [facility] (Lab) [address] [place], [address], 03/17/2022 13:36:19 03/17/20 22 03/17/2022 COMPR EHENS TERI METAB OLIC PANEL carbon dioxide 24 mmol/ L 22-30 Not Available [facility] (Lab) [address] [place], [address], 03/17/2022 13:36:19 03/17/20 22 03/17/2022 COMPR EHENS TERI METAB OLIC PANEL anion gap 12.5 mmol/ L 14-22 low Not Available [facility] (Lab) [address] [place], [address], 03/17/2022 13:36:19 03/17/20 22 03/17/2022 COMPR EHENS TERI METAB OLIC PANEL glucose 102 mg/dL 70-99 high Not Available [facility] (Lab) [address] [place], [address], 03/17/2022 13:36:19 03/17/20 22 03/17/2022 COMPR EHENS TERI METAB OLIC PANEL BUN 17 mg/dL 8-19 Not Available [facility] (Lab) [address] [place], [address], 03/17/2022 13:36:19 03/17/20 22 03/17/2022 COMPR EHENS TERI METAB OLIC PANEL creatinine 0.70 mg/dL 0.66-1 .25 Not Available [facility] (Lab) [address] [place], [address], 03/17/2022 13:36:19 03/17/20 22 03/17/2022 COMPR EHENS TERI METAB OLIC PANEL GFR >60 Refer ence Range : [place] GFR Healt hy Adult : >60 mL/mi n/1.7 3 m2 Chron ic Kidne y Disea se: 15-60 mL/mi n/1.7 3 m2 Kidne y Failu re: <15/m L/min /1.73 m2 www.n iddk. [facility].g ov The MDRD study equat ion has not been valid ated in child miki <18 years of age; pregn ant women ; the elder ly >85 years of age; or in some racia l or ethni c subgr oups, such as Hismt nics. Outsi de the valid ated lanie eters , estim ated GFR is less accur ate, requi ring clini nighat judgm ent on a case- by-ca se basis . Clini nighat inter preta tion for other races and ages must be made by the clini damien. The MDRD study equat ion has not been valid ated for the evalu ation of serum creat inine relat ed to nutri tai l statu s or medic ation usage . For perso ns <18 years of age, a pedia tric GFR calcu lator is avail able on the F websi te: https ://ww w.kid kyree.o rg/pr ofess ional s/kdo qi/gf r_cal culat or Not Available [facility] (Lab) [address] [place], [address], 03/17/2022 13:36:19 03/17/20 22 03/17/2022 COMPR EHENS TERI METAB OLIC PANEL alkaline phosphatase 130 U/L 38-126 high Not Available [facility] (Lab) [address] [facility] [place], [address], 03/17/2022 13:36:19 03/17/20 22 03/17/2022 COMPR EHENS TERI METAB OLIC PANEL alanine aminotransfe rase 17 U/L 0-35 Not Available [facility] (Lab) [address] [place], [address], 03/17/2022 13:36:19 03/17/20 22 03/17/2022 COMPR EHENS TERI METAB OLIC PANEL aspartate aminotransfe rase 22 U/L 15-37 Not Available [facility] (Lab) [address] [place], [address], 03/17/2022 13:36:19 03/17/20 22 03/17/2022 COMPR EHENS TERI METAB OLIC PANEL bilirubin, total 0.70 mg/dL 0.20-1 .30 Not Available [facility] (Lab) [address] [place], [address], 03/17/2022 13:36:19 03/17/20 22 03/17/2022 COMPR EHENS TERI METAB OLIC PANEL calcium 9.9 mg/dL 8.4-10 .2 Not Available [facility] (Lab) [address] [place], [address], 03/17/2022 13:36:19 03/17/20 22 03/17/2022 COMPR EHENS TERI METAB OLIC PANEL total protein 7.2 g/dL 6.3-8. 2 Not Available [facility] (Lab) [address] [place], [address], 03/17/2022 13:36:19 03/17/20 22 03/17/2022 COMPR EHENS TERI METAB OLIC PANEL albumin 4.2 g/dL 3.0-4. 4 Not Available [facility] (Lab) [address] [place], [address], 03/17/2022 13:36:19 03/17/20 22 03/17/2022 COMPR EHENS TERI METAB OLIC PANEL globulin 3.0 g/dL 2.6-4. 2 Not Available [facility] (Lab) [address] [place], [address], 03/17/2022 13:36:19 03/17/20 22 03/17/2022 COMPR EHENS TERI METAB OLIC PANEL A/G ratio 1.4 ratio 1.0-2. 0 Not Available [facility] (Lab) [address] [place], [address], 03/17/2022 13:36:19 05/19/20 22 05/19/2022 TSH thyroid-stim ulating hormone <0.015 uIU/m L 0.465- 4.680 low Not Available [facility] (Lab) [address] [place], [address], 05/19/2022 13:47:00 05/19/20 22 05/19/2022 T4 FREE free T4 1.66 NG/dL 0.78-2 .19 Not Available [facility] (Lab) [address] [place], [address], 05/19/2022 13:31:56 06/05/20 22 06/13/2022 THYRO GLOBU MILAGRO BY LCMS thyroglobuli n by lcms <0.2 NG/mL 1.5-38 .5 low This test was devel oped and its perfo rmanc e vinnie cteri stics deter mined by [facility]. It has not been clear ed or appro escobar by the Food and Drug Admin istra tion. . Accor jamie to the Kelvin Mcfarlane my of [facility] [employer] em[facility] ry, the refer ence inter you for Thyro globu milagro (TG) shoul d be relat ed to euthy roid patie nts and not for patie nts who under went thyro idect harper. TG refer ence inter vals for these patie nts depen d on the resid ual mass of the thyro id tissu e left after surge ry. Estab lishi ng a post- opera tive basel ine is recom salbador d. The assay limit of quant itati on is 0.2 ng/mL Perfo rmed at: [facility] [place] [address] , [place] [address] Lab Direc tor: Olga pham MD, Phone : [phone] Not Available [facility] (Lab) [address] [place], [address], 06/13/2022 18:08:52 06/05/20 22 06/05/2022 FOLAT E, SERUM /PLAS MA folate 8.70 NG/mL 2.76-2 0.0 Not Available [facility] (Lab) [address] [place], [address], 06/05/2022 14:32:54 06/05/20 22 06/05/2022 VITAM IN B12 (SONAL CHATA ) vb12 350 pg/mL 239-93 1 Not Available [facility] (Lab) [address] [place], [address], 06/05/2022 14:32:50 06/05/20 22 06/05/2022 TSH thyroid-stim ulating hormone <0.015 uIU/m L 0.465- 4.680 low Not Available [facility] (Lab) [address] [place], [address], 06/05/2022 14:13:55 06/05/20 22 06/05/2022 T4 FREE free T4 1.66 NG/dL 0.78-2 .19 Not Available [facility] (Lab) [address] [place], [address], 06/05/2022 13:38:55 06/05/20 22 06/05/2022 COMPR EHENS TERI METAB OLIC PANEL sodium 140 mmol/ L 137-14 5 Not Available [facility] (Lab) [address] [facility] [place], [address], 06/05/2022 13:32:19 06/05/20 22 06/05/2022 COMPR EHENS TERI METAB OLIC PANEL potassium 4.4 mmol/ L 3.5-5. 1 Not Available [facility] (Lab) [address] [place], [address], 06/05/2022 13:32:19 06/05/20 22 06/05/2022 COMPR EHENS TERI METAB OLIC PANEL chloride 107 mmol/ L 98-107 Not Available [facility] (Lab) [address] [facility] [place], [address], 06/05/2022 13:32:19 06/05/20 22 06/05/2022 COMPR EHENS TERI METAB OLIC PANEL carbon dioxide 23 mmol/ L 22-30 Not Available [facility] (Lab) [address] [facility] [place], [address], 06/05/2022 13:32:19 06/05/20 22 06/05/2022 COMPR EHENS TERI METAB OLIC PANEL anion gap 14.4 mmol/ L 14-22 Not Available [facility] (Lab) [address] [facility] [place], [address], 06/05/2022 13:32:19 06/05/20 22 06/05/2022 COMPR EHENS TERI METAB OLIC PANEL glucose 98 mg/dL 70-99 Not Available [facility] (Lab) [address] [place], [address], 06/05/2022 13:32:19 06/05/20 22 06/05/2022 COMPR EHENS TERI METAB OLIC PANEL BUN 15 mg/dL 8-19 Not Available [facility] (Lab) [address] [place], [address], 06/05/2022 13:32:19 11/03/06/05/2022 COMPR EHENS TERI METAB OLIC PANEL creatinine 0.68 mg/dL 0.66-1 .25 Not Available [facility] (Lab) [address] [place], [address], 06/05/2022 13:32:19 06/05/20 22 06/05/2022 COMPR EHENS TERI METAB OLIC PANEL GFR >60 Refer ence Range : [place] ge GFR Healt hy Adult : >60 mL/mi n/1.7 3 m2 Chron ic Kidne y Disea se: 15-60 mL/mi n/1.7 3 m2 Kidne y Failu re: <15/m L/min /1.73 m2 www.n iddk. nih.g ov The MDRD study equat ion has not been valid ated in child miki <18 years of age; pregn ant women ; the elder ly >85 years of age; or in some racia l or ethni c subgr oups, such as Hismt nics. Outsi de the valid ated lanie eters , estim ated GFR is less accur ate, requi ring clini nighat judgm ent on a case- by-ca se basis . Clini nighat inter preta tion for other races and ages must be made by the clini damien. The MDRD study equat ion has not been valid ated for the evalu ation of serum creat inine relat ed to nutri tai l statu s or medic ation usage . For perso ns <18 years of age, a pedia tric GFR calcu lator is avail able on the [facility] websi te: https ://renetta w.kid kyree.o rg/pr judyess ional s/kdo qi/gf r_cal culat or Not Available [facility] (Lab) [address] [place], [address], 06/05/2022 13:32:19 06/05/20 22 06/05/2022 COMPR EHENS TERI METAB OLIC PANEL alkaline phosphatase 120 U/L 38-126 Not Available [facility] (Lab) [address] [place], [address], 06/05/2022 13:32:19 06/05/20 22 06/05/2022 COMPR EHENS TERI METAB OLIC PANEL alanine aminotransfe rase 18 U/L 0-35 Not Available [facility] (Lab) [address] [place], [address], 06/05/2022 13:32:19 06/05/20 22 06/05/2022 COMPR EHENS TERI METAB OLIC PANEL aspartate aminotransfe rase 23 U/L 15-37 Not Available [facility] (Lab) [address] [facility] [place], [address], 06/05/2022 13:32:19 06/05/20 22 06/05/2022 COMPR EHENS TERI METAB OLIC PANEL bilirubin, total 0.70 mg/dL 0.20-1 .30 Not Available [facility] (Lab) [address] [place], [address], 06/05/2022 13:32:19 06/05/20 22 06/05/2022 COMPR EHENS TERI METAB OLIC PANEL calcium 9.4 mg/dL 8.4-10 .2 Not Available [facility] (Lab) [address] [place], [address], 06/05/2022 13:32:19 06/05/20 22 06/05/2022 COMPR EHENS TERI METAB OLIC PANEL total protein 6.7 g/dL 6.3-8. 2 Not Available [facility] (Lab) [address] [place], [address], 06/05/2022 13:32:19 06/05/20 22 06/05/2022 COMPR EHENS TERI METAB OLIC PANEL albumin 4.1 g/dL 3.0-4. 4 Not Available [facility] (Lab) [address] [place], [address], 06/05/2022 13:32:19 06/05/20 22 06/05/2022 COMPR EHENS TERI METAB OLIC PANEL globulin 2.6 g/dL 2.6-4. 2 Not Available [facility] (Lab) [address] [place], [address], 06/05/2022 13:32:19 06/05/20 22 06/05/2022 COMPR EHENS TERI METAB OLIC PANEL A/G ratio 1.6 ratio 1.0-2. 0 Not Available [facility] (Lab) [address] [facility] [place], [address], 06/05/2022 13:32:19 10/10/19 23 10/09/2022 COMPR EHENS TERI METAB OLIC PANEL sodium 138 mmol/ L 137-14 5 Not Available [facility] (Lab) [address] [place], [address], 10/09/2022 12:57:29 10/10/19 23 10/09/2022 COMPR EHENS TERI METAB OLIC PANEL potassium 4.4 mmol/ L 3.5-5. 1 Not Available [facility] (Lab) [address] [place], [address], 10/09/2022 12:57:29 10/10/19 23 10/09/2022 COMPR EHENS TERI METAB OLIC PANEL chloride 105 mmol/ L 98-107 Not Available [facility] (Lab) [address] [place], [address], 10/09/2022 12:57:29 10/10/19 23 10/09/2022 COMPR EHENS TERI METAB OLIC PANEL carbon dioxide 25 mmol/ L 22-30 Not Available [facility] (Lab) [address] [place], [address], 10/09/2022 12:57:29 10/10/19 23 10/09/2022 COMPR EHENS TERI METAB OLIC PANEL anion gap 12.4 mmol/ L 14-22 low Not Available [facility] (Lab) [address] [place], [address], 10/09/2022 12:57:29 10/10/19 23 10/09/2022 COMPR EHENS TERI METAB OLIC PANEL glucose 109 mg/dL 70-99 high Not Available [facility] (Lab) [address] [place], [address], 10/09/2022 12:57:29 10/10/19 23 10/09/2022 COMPR EHENS TERI METAB OLIC PANEL BUN 13 mg/dL 8-19 Not Available [facility] (Lab) [address] [place], [address], 10/09/2022 12:57:29 10/10/19 23 10/09/2022 COMPR EHENS TERI METAB OLIC PANEL creatinine 0.75 mg/dL 0.66-1 .25 Not Available [facility] (Lab) [address] [place], [address], 10/09/2022 12:57:29 10/10/19 23 10/09/2022 COMPR EHENS TERI METAB OLIC PANEL GFR >60 Refer ence Range : [place] ge GFR Healt hy Adult : >60 mL/mi n/1.7 3 m2 Chron ic Kidne y Disea se: 15-60 mL/mi n/1.7 3 m2 Kidne y Failu re: <15/m L/min /1.73 m2 www.n iddk. nih.g ov The MDRD study equat ion has not been valid ated in child miki <18 years of age; pregn ant women ; the elder ly >85 years of age; or in some racia l or ethni c subgr oups, such as Hispa nics. Outsi de the valid ated lanie eters , estim ated GFR is less accur ate, requi ring clini nighat judgm ent on a case- by-ca se basis . Clini nighat inter preta tion for other races and ages must be made by the clini damien. The MDRD study equat ion has not been valid ated for the evalu ation of serum creat inine relat ed to nutri tai l statu s or medic ation usage . For perso ns <18 years of age, a pedia tric GFR deneenu latjulia is avail able on the [facility] websi te: https ://renetta velasco.campos bainy.o rg/pr ofess ional s/kdo qi/gf r_cal culat or Not Available [facility] (Lab) [address] [place], [address], 10/09/2022 12:57:29 10/10/19 23 10/09/2022 COMPR EHENS TERI METAB OLIC PANEL alkaline phosphatase 108 U/L 38-126 Not Available [facility] (Lab) [address] [place], [address], 10/09/2022 12:57:29 10/10/19 23 10/09/2022 COMPR EHENS TERI METAB OLIC PANEL alanine aminotransfe rase 22 U/L 0-35 Not Available [facility] (Lab) [address] [place], [address], 10/09/2022 12:57:29 10/10/19 23 10/09/2022 COMPR EHENS TERI METAB OLIC PANEL aspartate aminotransfe rase 25 U/L 15-37 Not Available [facility] (Lab) [address] [place], [address], 10/09/2022 12:57:29 10/10/19 23 10/09/2022 COMPR EHENS TERI METAB OLIC PANEL bilirubin, total 0.70 mg/dL 0.20-1 .30 Not Available [facility] (Lab) [address] [place], [address], 10/09/2022 12:57:29 10/10/19 23 10/09/2022 COMPR EHENS TERI METAB OLIC PANEL calcium 9.6 mg/dL 8.4-10 .2 Not Available [facility] (Lab) [address] [place], [address], 10/09/2022 12:57:29 10/10/1910/09/2022 COMPR EHENS TERI METAB OLIC PANEL total protein 7.2 g/dL 6.3-8. 2 Not Available [facility] (Lab) [address] [place], [address], 10/09/2022 12:57:29 10/10/19 23 10/09/2022 COMPR EHENS TERI METAB OLIC PANEL albumin 4.2 g/dL 3.0-4. 4 Not Available [facility] (Lab) [address] [place], [address], 10/09/2022 12:57:29 10/10/19 23 10/09/2022 COMPR EHENS TERI METAB OLIC PANEL globulin 3.0 g/dL 2.6-4. 2 Not Available [facility] (Lab) [address] [place], [address], 10/09/2022 12:57:29 10/10/19 23 10/09/2022 COMPR EHENS TERI METAB OLIC PANEL A/G ratio 1.4 ratio 1.0-2. 0 Not Available [facility] (Lab) [address] [place], [address], 10/09/2022 12:57:29 10/10/19 23 10/09/2022 T4 FREE free T4 1.65 NG/dL 0.78-2 .19 Not Available [facility] (Lab) [address] [place], [address], 10/09/2022 13:52:01 10/10/1910/09/2022 TSH thyroid-stim ulating hormone <0.015 uIU/m L 0.465- 4.680 low Not Available [facility] (Lab) [address] [place], [address], 10/09/2022 13:53:06 10/10/19 23 10/09/2022 VITAM IN B12 (SONAL CHATA ) vb12 451 pg/mL 239-93 1 Not Available [facility] (Lab) [address] [place], [address], 10/09/2022 14:02:05 10/10/19 23 10/09/2022 FOLAT E, SERUM /PLAS MA folate 14.4 NG/mL 2.76-2 0.0 Not Available [facility] (Lab) [address] [place], [address], 10/09/2022 14:02:10 10/10/19 23 10/10/2022 THYRO GLOBU MILAGRO ANTIB STEVE thyroglobuli n antibody <1.0 IU/mL 0.0-0. 9 Thyro globu milagro Antib steve measu red by Margot Ballesteros er Metho dolog y Perfo rmed at: - [facility] [address] [id number] Lab Direc tor: Harsha amado PhD, Phone : [phone] Not Available [facility] (Lab) [address] [place], [address], 10/10/2022 15:11:44 10/10/19 23 10/17/2022 THYRO GLOBU MILAGRO BY LCMS thyroglobuli n by lcms <0.2 NG/mL 1.5-38 .5 low This test was devel oped and its perfo rmanc e vinnie cteri stics deter mined by [facility]. It has not been clear ed or appro escobar by the Food and Drug Admin istra tion. . Accor jamie to the Kelvin Mcfarlane my of Clini nighat Bioch emist ry, the refer ence inter you for Thyro globu milagro (TG) shoul d be relat ed to euthy roid patie nts and not for patie nts who under went thyro idect harper. TG refer ence inter vals for these patie nts depen d on the resid ual mass of the thyro id yessenia fernandez left after surge ry. Estab lishi ng a post- opera tive basel ine is recom salbador garcia. The assay limit of quant itati on is 0.2 ng/mL Perfo rmed at: [facility] [place] [address] , [place] [address] Lab Direc tor: Olga pham MD, Phone : [phone] Not Available [facility] (Lab) [address] [place], [address], 10/17/2022 13:11:06 10/27/19 22 10/25/2021 US, thyro id No observ ation record ed. [id number], [place], [address], 10/01/2022 04:59:49 06/02/20 23 06/02/2023 bone densi ty No observ ation record ed. [address] [facility], [place], [address], 07/13/2023 16:42:13 Result Notes None recorded. Problems Name Problem SNOMED Code Status Onset Date Resolution Date Notes Provider Name and Address Organization Details Recorded Time Postoperative hypothyroidism 28800099 Active 2022 Yanelis Martinez MD [address], [address], [employer] 3 12:53:56 Osteopenia 153312515 Active 2022 Yanelis Martinez MD [address], [address], [employer] 3 12:54:42 Steroid-induce d hyperglycemia 484100569 Active 2022 Yanelis Martinez MD [address], [address], [employer] 3 12:55:59 Problem Notes None recorded. Procedures Surgical History Date Name Laterality Status Provider Name and Address Organization Details Recorded Time total thyroidectomy completed Not Available [facility] 10/01/2022 04:42:35 Breast reduction completed Not Available [facility] 10/01/2022 04:42:35 Cholecystectomy completed Not Available [facility] 10/01/2022 04:42:35 Imaging Results Imaging Date Name Status LastModified by Organiz ation Details LastModified Time 10/25/2021 US, thyroid completed [id number] [place] [address], [address], 10/01/2022 04:59:49 06/02/2023 bone density completed [id number] [facility] [address] [facility] [address], [place], [address], 07/13/2023 16:42:13 Procedure Notes None recorded. Medical Equipment None Reported. Allergies Allergen ID Allergen Name Allergen Category Reaction Reaction Severity Criticality Documentation Date Start Date Code Code System Note Provider Name and Address Organization Details Recorded Time 7309 Synthroid medicatio n hives Not available Not available 10/01/2022 44851 0 RxNorm Not Available [facility] 3 04:59:26 7310 sulfameth oxazole / trimethop rim medicatio n Not available Not available Not available 10/01/2022 24636 RxNorm Not Available [facility] 3 04:59:26 7311 Substance with sulfonami de structure and antibacte rial mechanism of action (substanc e) medicatio n Not available Not available Not available 10/01/2022 24949 8003 SNOMED Not Available [facility] 3 04:59:26 7312 Product containin g penicilli n and antibioti c (product) medicatio n Not available Not available Not available 10/01/2022 15114 05 SNOMED Not Available [facility] 3 04:59:26 7313 levothyro xine sodium medicatio n hives Not available Not available 10/01/2022 96818 RxNorm Not Available [facility] 3 04:59:27 7314 levofloxa parag medicatio n Not available Not available Not available 10/01/2022 05788 RxNorm Not Available [facility] 3 04:59:27 7315 iodine medicatio n Not available Not available Not available 10/01/2022 5933 RxNorm Not Available [facility] 3 04:59:27 7316 Iodinated contrast media (substanc e) medicatio n Not available Not available Not available 10/01/2022 70242 2004 SNOMED Not Available [facility] 3 04:59:27 7317 amoxicill in medicatio n Not available Not available Not available 10/01/2022 723 RxNorm Not Available [facility] 3 04:59:27 Medications Name Sig Start Date Stop Date Status Note LastModified by Organization Details LastModified Time amoxicillin 500 mg capsule 03/24 completed Not Available Not Available Not Available Pegram Thyroid 60 mg tablet 03/04 completed Not Available Not Available Not Available nystatin 100,000 unit/mL oral suspension 10/04 completed Not Available Not Available Not Available prednisone 10 mg tablet TAKE 4 TABLETS BY MOUTH DAILY FOR 4 DAYS THEN 3 TABLETS FOR 4 DAYS THEN 2 TABLETS FOR 4 DAYS THEN 1 TABLET FOR 4 DAYS 10/16 completed Not Available Not Available Not Available azithromycin 250 mg tablet TK 2 TS PO ON DAY 1, THEN TK 1 T PO D FOR 4 DAYS 10/16 completed Not Available Not Available Not Available fluconazole 150 mg tablet 10/04 completed Not Available Not Available Not Available hydrocodone 5 mg-acetamino phen 325 mg tablet TAKE 1 TABLET BY MOUTH EVERY 4 HOURS NEEDED FOR PAIN 10/16 completed Not Available Not Available Not Available meloxicam 15 mg tablet 05/08 completed Not Available Not Available Not Available fluoxetine 10 mg tablet 10/04 completed Not Available Not Available Not Available prednisone 5 mg tablet TAKE 1 TABLET BY MOUTH DAILY 05/08 completed Not Available Not Available Not Available doxycycline monohydrate 100 mg tablet TAKE 1 TABLET BY MOUTH TWICE DAILY FOR 7 DAYS 10/16 completed Not Available Not Available Not Available Pegram Thyroid 15 mg tablet 11/19 completed Not Available Not Available Not Available amoxicillin 875 mg tablet TAKE 1 TABLET BY MOUTH EVERY 12 HOURS FOR 10 DAYS 05/08 completed Not Available Not Available Not Available lorazepam 0.5 mg tablet 06/10 completed Not Available Not Available Not Available ciprofloxaci n 0.3 % eye drops 10/16 completed Not Available Not Available Not Available meclizine 25 mg tablet TAKE 1 TABLET BY MOUTH EVERY EVERY 6 TO 8 HOURS NEEDED 10/16 completed Not Available Not Available Not Available prednisone 50 mg tablet 05/08 completed Not Available Not Available Not Available fluticasone propionate 50 mcg/actuatio n nasal spray,suspen taryn active Not Available Not Available Not Available amoxicillin 875 mg-potassium clavulanate 125 mg tablet TAKE 1 TABLET BY MOUTH EVERY 12 HOURS 05/08 completed Not Available Not Available Not Available Tirosint 125 mcg capsule TAKE 1 CAPSULE BY MOUTH EVERY DAY IN THE MORNING 06/10 completed Not Available Not Available Not Available Tirosint 100 mcg capsule TAKE 1 CAPSULE DAILY IN THE MORNING active Not Available Not Available No t Available Tirosint 112 mcg capsule Take 1 capsule every day by oral route in the evening for 90 days. 10/16 completed Not Available Not Available Not Available PreviDent 5000 Booster Plus 1.1 % dental paste 10/16 completed Not Available Not Available Not Available Vitals Date Recorded Body mass index (BMI) Body height Oxygen saturation Oxygen saturation in Arterial blood by Pulse oximetry Heart rate Respiratory rate Body temperature Body weight Systolic blood pressure Diastolic blood pressure Provider Name and Address Organization Details Last Updated DateTime 1 30.5 kg/m2 160.02 cm 99 % 99 % 80 /min 16 /min 98.2 [degF] 00041.8 9 g 120 mm[Hg] 80 mm[Hg] Not Available [facility] 3 04:49:51 Date Recorded Body mass index (BMI) Body height Oxygen saturation Oxygen saturation in Arterial blood by Pulse oximetry Heart rate Body temperature Body weight Systolic blood pressure Diastolic blood pressure Provider Name and Address Organization Details Last Updated DateTime 2 28.5 kg/m2 160.02 cm 98 % 98 % 70 /min 97.8 [degF] 24917.3 7 g 125 mm[Hg] 80 mm[Hg] Not Available [facility] 3 04:49:52 Date Recorded Body height Oxygen saturation Oxygen saturation in Arterial blood by Pulse oximetry Heart rate Body temperature Systolic blood pressure Diastolic blood pressure Provider Name and Address Organization Details Last Updated DateTime 2 160.02 cm 97 % 97 % 71 /min 97.8 [degF] 140 mm[Hg] 95 mm[Hg] Not Available [facility] 3 04:49:51 Date Recorded Body height Body mass index (BMI) Body weight Body temperature Heart rate Systolic blood pressure Diastolic blood pressure Provider Name and Address Organization Details Last Updated DateTime 3 160.02 cm 29.7 kg/m2 95072.0 8 g 98 [degF] 77 /min 159 mm[Hg] 87 mm[Hg] Marbella SimsnQUAN [employer] 3 12:42:43 Date Recorded Body height Body mass index (BMI) Body weight Heart rate Provider Name and Address Organization Details Last Updated DateTime 05/08/2023 160.02 cm 29.1 kg/m2 15322.15 g 98 /min Heike Garcia [employer] 05/08/2023 08:58:52 Social History Question Answer Notes LastModified by Organizat ion Details LastModified Time Tobacco Smoking Status Former Smoker quit 2001 Not Available [facility] 10/01/2022 04:42:28 What Is Your Level Of Alcohol Consumption? Occasional [id number] Information not available 10/01/2022 What Is Your Level Of Caffeine Consumption? Moderate [id number] Information not available 10/01/2022 How Much Tobacco Do You Chew? None [id number] Information not available 10/01/2022 In The 14 Days Before Symptom Onset, Have You Had Close Contact With A Laboratory-confir med COVID-19 While That Case Was Ill? No [id number] Information not available 10/01/2022 In The 14 Days Before Symptom Onset, Have You Had Close Contact With A Person Who Is Under Investigation For COVID-19 While That Person Was Ill? No [id number] Information not available 10/01/2022 Which Illicit Or Recreational Drugs Have You Used? None [id number] Information not available 10/01/2022 Do You Or Have You Ever Used E-cigarettes Or Vape? Never Used Electronic Cigarettes [id number] Information not available 10/01/2022 Have You Recently Traveled Abroad? No [id number] Information not available 10/01/2022 Sex: Female Functional Status None recorded. Mental Status None recorded. Family History Relationship Description Onset Age of this Age Resolved Age Notes LastModified by Organization Details LastModified Time Father Diabetes mellitus [id number] Not available 10/01/2022 04:42:45 Father Hypertensive disorder [id number] Not available 10/01/2022 04:42:45 Father Heart disease [id number] Not available 10/01/2022 04:42:45 Mother Diabetes mellitus [id number] Not available 10/01/2022 04:42:45 Mother Disorder of thyroid gland [id number] Not available 10/01/2022 04:42:45 Sister Diabetes mellitus [id number] Not available 10/01/2022 04:42:45 Brother Heart disease [id number] [id number] Not available 10/01/2022 04:42:45 Brother Diabetes mellitus x3 [id number] Not available 10/01/2022 04:42:46 Medical History Condition Response THYROID DISEASE Y CANCER: SPECIFY Y HEADACHES/MIGRAINES Y HAVE YOU BEEN HOSPITALIZED OR SEEN IN [facility] IN THE PAST YEAR ? Y HYPOTHYROIDISM Y Gynecological HistoryNo gynecological history recorded. Obstetrics History GPAL:G 0 P 0 0 0 0 Past Encounters Encounter ID Performer Location Encounter Start Date Encounter Closed Date Diagnosis/Indication Diagnosis SNOMED-CT Code Diagnosis ICD10 Code Diagnosis Note [id number] [facility] [address] [place] [address] 11/19/2020 00:00:00 11/19/2020 13:44:46 [id number] [facility] [address] [place] [address] 03/04/2021 00:00:00 03/04/2021 11:23:05 [id number] [facility] [place] [address] [place] [address] 06/10/2021 00:00:00 06/10/2021 12:36:45 [id number] [facility] [address] [place] [address] 10/07/2021 00:00:00 10/07/2021 14:52:17 [id number] [facility] [address] [place] [address] 03/24/2022 00:00:00 03/24/2022 13:30:15 [id number] Yanelis Martinez MD [facility] [address] [place] [address] 10/16/2022 12:34:58 10/16/2022 14:03:43 Postoperative hypothyroidism 35028837 E89.0 TSH suppressed however was on high dose prednisone which is known to suppress TSH levels- FT4 in ideal range and TG panel negative- continue on tirosint 100 mcg daily. Thyroid u/s clear of thyroid tissue from 10/25/22. Continue current regimen. Osteopenia 429792694 M85 .80 Send for repeat bone density this summer to monitor for any evidence of bone loss. She is on chronic high dose LT4 for hx of thyroid ca and has been on steroid therapy so higher risk for bone loss. Steroid-in duced hyperglycemia 851193322 R73.9 She had high dose steroid therapy for URI this past winter- glucose of 109 mg/dL during therapy- will send for a1c and insulin to screen for true hyperglyce kem or concern for underlying impaired glucose. Discussed carb counting and how to read food labels. Recommende d patient to utilize the diabetesfo [employer]Seebright from the ADA website to help with food preparatio n as this presents ideal carb content per meal so this will make carb counting much easier for patient. Recommende d she incorporat e natural insulin profiling machine operator s such as pears, apples, cinnamon, nahomi and sweet potatoes to help mobilize her endogenous insulin. Recommende d up to 150 minutes of moderate level activity/e xercise weekly. Spent up to 28 minutes preparing to see the patient (eg, review of tests), obtaining and/or reviewing separately obtained history, performing a medically appropriat e examinatio n and evaluation , counseling and educating the patient, ordering medication s, tests, along with documentin g clinical informatio n in the electronic health record, independen tly interpreti ng results and communicat ing results to the patient. RTC in 6 months. Patient was provided a handwritte n lab order which contains our fax number. If she chooses to go outside of the [facility] system to obtain labwork she was advised to provide our fax number and my informatio n to the lab she will be obtaining labwork from in order to have her labs properly forwarded over for me to review so there is no loss of follow up due to use of outside network. She was also advised to contact our clinic informing us that she has completed her labwork so we are aware we will need to reach out to the appropriat e laboratory to request her results be forwarded to us so I might have the ability to review and make further medical decision making in her case. She voiced understand ing. [id number] Yanelis Martinez MD [facility] Weldon [address] [place] [address] 05/08/2023 08:52:55 05/08/2023 09:25:33 Postoperative hypothyroidism [id number] E89.0 TSH just under 0.1 uIU/ml but FT4 in overall range- will continue on tirosint 100 mcg daily as patient cannot tolerate dyes and fillers found in all the generic thyroid replacemen ts or synthroid. She is aware she will need continued thyroid imaging for monitoring and TG panel. She was reminded to take her tirosint on empty stomach with glass of water and wait one hour to eat or have her coffee in morning and up to 4 hours if ever taking any heartburn or reflux medication s to help optimize absorption . Discussed paleo like diet with restrictio n of GMOs to help with energy and to optimize absorption of vitamins and minerals and reduce inflammati on. Refer to endocrinol ogy per patient request and complexity . Spent up to 15 minutes preparing to see the patient (eg, review of tests), obtaining and/or reviewing separately obtained history, performing a medically appropriat e examinatio n and evaluation , counseling and educating the patient, ordering medication s, tests, along with documentin g clinical informatio n in the electronic health record, independen tly interpreti ng results and communicat ing results to the patient. Patient can be followed by PCP - she/he is aware of my resignatio n and last day of May 15. If needed his/her PCP can refer patient to another endocrinol ogist in the area. All questions /concerns answered and refills necessary at visit today. Health Concerns Section Related Observation LastModified by Organization Detai ls LastModified Time None Recorded Concern Status LastModified by Organization Details LastModified Time None Recorded Advance Directives Directive None Recorded Payers Encounter Date Sequence Insurance Name Policy Number Policy Marrero Covered Member ID Marrero Member ID Guarantor Name 10/16/2022 1 [place] Marley Stephenson [id number] Marley Stephenson 10/16/2022 2 [employer] - FOR LIFE (MEDICARE SUPPLEMENT) Morales Stephenson [id number] Marley Stephenson 05/08/2023 1 [place] Marley Stephenson [id number] Marley Stephenson 05/08/2023 2 [employer] - FOR LIFE (MEDICARE SUPPLEMENT) Morales Stephenson [id number] Marley Stephenson Notes Date Note Type Note Provider Name and Address Organization Details Recorded Time 10/16/2022 text/html 67 yo female com es in for follow up in management of postoperative hypothyroidism, new finding of hyperglycemia and osteopenia. last seen in March at that time we dropped her tirosint down to 100 mcg daily. She had a thyroid u/s completed and this was negative- this was done this past week. She had this done on 10/25/21. She initially struggled with sleep but doing better now. She has gained 6 pounds since last visit. She rushed to get her and has struggled with inner ear infections as she was having vertigo and dizziness- her blood pressure is marginally elevated. She saw Dr. Peter in [place] -was given prednisone and z pack. The infection came back within a few days. She was given a 14 day course of prednisone taper. Her BP was elevated secondary to the steroid therapy. She stopped her last prednisone dose 2 weeks ago. labs from 10/23:TG negTSH <0.015 uIU/mlFT4 of 1.65 ng/dLB12/folate normalglucose 109 mg/dLCr normalLFT normal Yanelis Martinez MD [address] [facility], [facility] [address], [place], [address], [facility] [employer] 10/16/2022 13:58:41 05/08/2023 text/html 68 yo female com es in for follow up in management of postoperative hypothyroidism, steroid induced hyperglycemia and osteopenia. last seen in October at that time we continued tirosint 100 mcg daily we recommended repeat bone density this summer- not completed. This will not be done until this winter due to scheduling. She had coffee so labs are not fasting. She feels good overall. She has gained 3 pounds. 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 She doesn't swim anymore and not exercising like she should. labs from 05/04/23:TSH of 0.022 uIU/mlFT4 of 1.62 ng/dLglucose 106 mg/dLA1C of 5.4%Cr normalvit D 53 ng/mL Yanelis Martinez MD [address] [facility], [facility] [address], [place], [address], [facility] [employer] 05/08/2023 09:37:40 OBGyn Episode No OBEpisode recorded.
--- OUTSIDE RECORDS SUMMARY | 2024-08-30 10:30 | XMS_ITS | Encounter Summary ---
Author Organization [facility] Address [address] [place] [address] Care Team Providers Care Communications Engineer Name Role Phone Elizabet Campos MD Primary Care Provider + Encounter Details Date Type Department Care Team (Late Contact Info) Description 12/04/2020 Chart Note [facility] Radiation Therapy [address] [place] [address] [place] [address] [place] [address] Social History Tobacco Use Types [...] on file Sexual Orientation Not on file COVID-19 Exposure Response Date Recorded In the last month, have you been in contact with someone who was confirmed or suspected to have Coronavirus / COVID-19? No / Unsure 11/30/2020 9:36 AM CDT documented as of this encounter Plan of Treatment Upcoming Encounters Date Type Department Care Team (Late Contact Info) Description 10/10/2024 10:15 AM CDT Office Visit [facility] Oncology and Hematology - [place] [address] [facility] [address] [place] [address] Hai Marroquin MD [address] [facility] [address] [place] [address] documented as of this encounter Visit Diagnoses Not on filedocumented in this encounter Care Teams Communications Engineer Relationship Specialty Start Date End Date Elizabet Campos MD [address] [place] [id number] PCP - General Internal Medicine 02/01/18 documented as of this encounter
[2024-08-30 12:23] LABS: Free T4 Free Thyroxine 1.35 ng/dL (0.78-2.19)
[2024-09-01 13:03] LABS: Thyroglobulin <0.1 ng/mL; Thyroglobulin Antibodies 4 IU/mL (< or = 1)
== END 2024-08-30 09:45 | disposition home or self-care (01) ==
PROVIDERS: PCP Internal Medicine; Visit Provider Internal Medicine Endocrinology, Diabetes & Metabolism
DX: C73 Malignant neoplasm of thyroid gland (principal); E03.9 Hypothyroidism, unspecified
CPT/HCPCS: 36415; 84432; 84439; 84443; 86800

== ENCOUNTER 2024-09-06 11:24 | Outpatient (CLI) | payer MEDICARE, OTHER, SELFPAY ==
--- OUTSIDE RECORDS SUMMARY | 2024-09-06 12:03 | XMS_ITS | Encounter Summary ---
Author Organization [facility] Address [address] [place] [address] Care Team Providers Care Deputy Sheriff/Investigator Name Role Phone Elizabet Campos MD Primary Care Provider + Encounter Details Date Type Department Care Team (Late st Contact Info) Description 03/16/2018 Chart Note [facility] Radiation Therapy [address] [place] [address] [place] [address] [place] [address] Social History Tobacco Use Types [...] Description 10/10/2024 10:15 AM CDT Office Visit [facility] Oncology and Hematology - [place] [address] [address] [place] [address] Hai Marroquin MD [address] [facility] [address] [place] [address] documented as of this encounter Visit Diagnoses Not on filedocumented in this encounter Care Teams Deputy Sheriff/Investigator Relationship Specialty Start Date End Date Elizabet Campos MD [address] [place] [address] PCP - General Internal Medicine 02/01/18 documented as of this encounter
--- OUTSIDE RECORDS SUMMARY | 2024-09-06 12:03 | XMS_ITS | Referral Summary ---
Author Organization [facility] Address [address] [place] [address] Care Team Providers Care Instructor Private Name Role Phone Elizabet Campos MD Primary Care Provider [phone] Hayley Walsh MD Unavailable [phone] Allergies Active Allergy Reactions Criticality Noted Date Comments Amoxicillin-Pot Clavulanate Hives Medium 05/29/20 20 Iodinated Contrast Media Hives Medium 08/30/2020 Levofloxacin Hives Medium 03/08/2018 Levothyroxine Hives Medium 07/14/2018 Sulfa (Sulfonamide Antibiotics) Hives Medium Medications omega 6-ioy-qin-fish oil 1,000 mg (120 mg-180 mg) capsuleIndicati [...] (six) hours as needed for pain Active Antler Thyroid 60 mg tabletIndicatio ns:hypothyroidi sm Take [...] (08/16/2020): Added automatically from request for surgery [id number] Metastatic papillary carcinoma 08/16/2020 Overview (08/16/2020): Added automatically from request for surgery [id number] Thyroid cancer 04/28/2018 Cancer Staging:Pathologic stage from [...] on file Legal Sex Female 4:01 AM RHIC SYSTEMS SAFETY ENGINEER Gender Identity Not on file Sexual Orientation Not on file Last Filed Vital Signs Vital Sign Reading Time Taken Comments Blood Pressure 120/59 09/13/2020 7:50 AM RHIC SYSTEMS SAFETY ENGINEER Pulse 60 09/13/2020 7:50 AM RHIC SYSTEMS SAFETY ENGINEER Temperature 36.6 ??C (97.8 ??F) 09/13/2020 7:50 AM CS T Respiratory Rate 16 09/13/2020 7:50 AM RHIC SYSTEMS SAFETY ENGINEER Oxygen Saturation 97% 09/13/2020 7:50 AM RHIC SYSTEMS SAFETY ENGINEER Inhaled Oxygen Concentration - - Weight 80.8 kg (178 lb 3.2 oz) 04/09/2023 11:30 AM CDT Height 160 cm (5' 3 ) 04/09/2023 11:30 AM CDT Body Mass Index 31.57 04/09/2023 11:30 AM CDT Plan of Treatment Not on file Insurance [id number] [place] [address] CLAIMS MEDICARE FOR LIFE [facility] CLAIMS [facility] MEDICARE MEDICARE Advance Directives For more information, please contact: [phone] * Full Code (Latest Code Status on File) Date Activated Date Inactivated Comments 09/12/2020 3:13 PM 09/13/2020 3:52 PM Care Teams Instructor Private Relationship Specialty Start Date End Date Elizabet Campos MD [address] [place] [address] PCP - General 04/27/18 Hayley Walsh MD [address] [place] [address] Referring Physician Internal Medicine 04/28/18
--- OUTSIDE RECORDS SUMMARY | 2024-09-06 12:03 | XMS_ITS | Clinical Summary ---
Author Organization [facility] Address [address] [facility] [place] [address] Care Team Providers Care Recordak Operator Name Role Phone Elizabet Campos MD Primary [...] tablet Take 200 mg by mouth. Active bmeno-[id number]-[id number]-EPA -fish oil 1,000 mg Capsule Take 1 [...] Description 10/10/2024 10:15 AM CDT Office Visit [facility] Oncology and Hematology - [place] [address] [place] [address] Hai Marroquin MD [address] [facility] [address] [place] [address] Health Maintenance Due Date Last [...] A AND B FOR LIFE Care Teams Recordak Operator Relationship Specialty Start Date End Date Elizabet Campos MD [address] [place] [address] PCP - General Internal Medicine 02/01/18
--- OUTSIDE RECORDS SUMMARY | 2024-09-06 12:03 | XMS_ITS | Data Portability ---
Author Organization [facility], Main Office Address [address] [place] [address] Assessment No assessment recorded. Plan of Treatment Reminders Order Date Submit Date Provider Last Modified By Organization Details Last Modified Time Details Appointments None recorded. Lab HbA1c (hemoglobin A1c), blood 2022 023 [email or web address] Not available 3 12:59:26 insulin Ab, serum 2022 023 [email or web address] Not available 3 12:59:25 TSH + free T4, serum 2022 023 Not available 3 12:59:26 T3, free, serum or plasma 2022 023 [email or web address] Not available 3 12:59:26 thyroglobul in + thyroglobul in Ab, serum 2022 023 [email or web address] Not available 3 12:59:26 CMP, serum or plasma 2022 023 [email or web address] Not available 3 12:59:25 vitamin D, 25-hydroxy, total, serum 2022 023 [email or web address] Not available 3 12:59:25 Referral endocrinolo gy referral 2022 023 [email or web address] Shakila Rodriguez MD, [address],, [facility], [place], [address], 3 09:25:33 Procedures None recorded. Surgeries None recorded. Imaging bone density 2022 023 [facility] (Imaging), [address] [place] [address] [address], [place], [address], 3 18:11:41 Medication Orders Tirosint 100 mcg capsule 2022 023 [facility], [address] [place], [address], 09:18:40 Patient TargetsNo targets recorded. Patient InstructionsNo [...] e vinnie cteri stics deter mined by [facility]. It has not been clear ed [...] BN - [facility] [place] [address] [facility] , [place] [address] Lab Direc tor: Olga pham MD, Phone : [phone] Not Available [facility] (Lab) [address] [place], [address], 06/19/2021 10:11:58 05/31/2006/03/2021 THYRO GLOBU MILAGRO ANTIB STEVE thyroglobuli n antibody <1.0 IU/mL 0.0-0. 9 Thyro globu milagro Antib steve measu red by Margot Ballesteros er Metho dolog y Perfo rmed at: - [facility] [address] [address] [facility], [place] [address] Lab Direc tor: Harsha amado PhD, Phone : [phone] Not Available [facility] (Lab) [address] [place], [address], 06/03/2021 16:10:32 05/31/20 21 05/31/2021 VITAM IN D 25-HY DROXY vd25oh 42.4 NG/mL 30-100 Vitam in D Statu s: Defic ient: <20 ng/mL Insuf ficie nt: 20-29 ng/mL Suffi cient : 30-10 0 ng/mL Not Available [facility] (Lab) [address] [place], [address], 05/31/2021 19:41:25 05/31/20 21 05/31/2021 TSH thyroid-stim ulating hormone <0.015 uIU/m L 0.465- 4.680 low Not Available [facility] (Lab) [address] [place], [address], 05/31/2021 19:21:09 05/31/20 21 05/31/2021 T3 FREE free T3 3.8 pg/mL 2.77-5 .27 Not Available [facility] (Lab) [address] [place], [address], 05/31/2021 19:06:04 05/31/20 21 05/31/2021 T4 FREE free T4 2.07 NG/dL 0.78-2 .19 Not Available [facility] (Lab) [address] [place], [address], 05/31/2021 19:05:59 05/31/20 21 05/31/2021 COMPR EHENS TERI METAB OLIC PANEL GFR >60 Refer ence Range : Toivola ge GFR Healt hy Adult : >60 [...] lator can be locat ed on the [facility] websi te: https ://renetta velasco.campos adorno.o rg/pr ofess ional s/kdo qi/gf r_cal culat or Not Available [facility] (Lab) [address] [place], [address], 05/31/2021 18:58:33 05/31/20 21 05/31/2021 COMPR EHENS TERI METAB OLIC PANEL alkaline phosphatase 130 U/L 38-126 high Not Available [facility] (Lab) [address] [place], [address], 05/31/2021 18:58:33 05/31/20 21 05/31/2021 COMPR EHENS TERI METAB OLIC PANEL alanine aminotransfe rase 17 U/L 0-35 Not Available [facility] (Lab) [address] [place], [address], 05/31/2021 18:58:33 05/31/20 21 05/31/2021 COMPR EHENS TERI METAB OLIC PANEL aspartate aminotransfe rase 25 U/L 15-37 Not Available [facility] (Lab) [address] [place], [address], 05/31/2021 18:58:33 05/31/20 21 05/31/2021 COMPR EHENS TERI METAB OLIC PANEL bilirubin, total 0.80 mg/dL 0.20-1 .30 Not Available [facility] (Lab) [address] [place], [address], 05/31/2021 18:58:33 05/31/20 21 05/31/2021 COMPR EHENS TERI METAB OLIC PANEL calcium 10.2 mg/dL 8.4-10 .2 Not Available [facility] (Lab) [address] [place], [address], 05/31/2021 18:58:33 05/31/20 21 05/31/2021 COMPR EHENS TERI METAB OLIC PANEL total protein 7.6 g/dL 6.3-8. 2 Not Available [facility] (Lab) [address] [place], [address], 05/31/2021 18:58:33 05/31/20 21 05/31/2021 COMPR EHENS TERI METAB OLIC PANEL albumin 4.5 g/dL 3.0-4. 4 high Not Available [facility] (Lab) [address] [place], [address], 05/31/2021 18:58:33 05/31/20 21 05/31/2021 COMPR EHENS TERI METAB OLIC PANEL globulin 3.1 g/dL 2.6-4. 2 Not Available [facility] (Lab) [address] [place], [address], 05/31/2021 18:58:33 05/31/20 21 05/31/2021 COMPR EHENS TERI METAB OLIC PANEL A/G ratio 1.5 ratio 1.0-2. 0 Not Available [facility] (Lab) [address] [place], [address], 05/31/2021 18:58:33 05/31/20 21 05/31/2021 COMPR EHENS TERI METAB OLIC PANEL sodium 140 mmol/ L 137-14 5 Not Available [facility] (Lab) [address] [place], [address], 05/31/2021 18:58:33 05/31/20 21 05/31/2021 COMPR EHENS TERI METAB OLIC PANEL potassium 4.4 mmol/ L 3.5-5. 1 Not Available [facility] (Lab) [address] [place], [address], 05/31/2021 18:58:33 05/31/20 21 05/31/2021 COMPR EHENS TERI METAB OLIC PANEL chloride 105 mmol/ L 98-107 Not Available [facility] (Lab) [address] [place], [address], 05/31/2021 18:58:33 05/31/20 21 05/31/2021 COMPR EHENS TERI METAB OLIC PANEL carbon dioxide 25 mmol/ L 22-30 Not Available [facility] (Lab) [address] [place], [address], 05/31/2021 18:58:33 05/31/20 21 05/31/2021 COMPR EHENS TERI METAB OLIC PANEL agap 14.4 mmol/ L 14-22 Not Available [facility] (Lab) [address] [place], [address], 05/31/2021 18:58:33 05/31/20 21 05/31/2021 COMPR EHENS TERI METAB OLIC PANEL glucose 95 mg/dL 70-99 Not Available [facility] (Lab) [address] [place], [address], 05/31/2021 18:58:33 05/31/20 21 05/31/2021 COMPR EHENS TERI METAB OLIC PANEL BUN 17 mg/dL 8-19 Not Available [facility] (Lab) [address] [place], [address], 05/31/2021 18:58:33 05/31/20 21 05/31/2021 COMPR EHENS TERI METAB OLIC PANEL creatinine 0.67 mg/dL 0.66-1 .25 Not Available [facility] (Lab) [address] [place], [address], 05/31/2021 18:58:33 09/25/19 22 10/04/2021 THYRO GLOBU MILAGRO BY LCMS thyroglobuli n by lcms <0.2 NG/mL 1.5-38 .5 low This test was devel oped and its perfo rmanc e vinnie cteri stics deter mined by [facility]. It has not been clear ed [...] at: BN - [facility] [place] [address] [facility] , [place] [address] Lab Direc tor: Olga pham MD, Phone : [phone] Not Available [facility] (Lab) [address] [place], [address], 10/04/2021 20:08:47 09/25/19 22 09/28/2021 THYRO GLOBU MILAGRO ANTIB STEVE thyroglobuli n antibody <1.0 IU/mL 0.0-0. 9 Thyro globu milagro Antib steve measu red by Beckm an Coult er Metho dolog y Perfo rmed at: CB - [facility] [address] [facility], [place] [address] Lab Direc tor: Harsha amado PhD, Phone : [phone] Not Available [facility] (Lab) [address] [place], [address], 09/28/2021 15:10:03 09/25/19 22 09/25/2021 TSH thyroid-stim ulating hormone <0.015 uIU/m L 0.465- 4.680 low Not Available [facility] (Lab) [address] [place], [address], 09/25/2021 14:12:52 09/25/19 22 09/25/2021 VITAM IN D 25-HY DROXY vd25oh 41.6 NG/mL 30-100 Vitam in D Statu s: Defic ient: <20 ng/mL Insuf ficie nt: 20-29 ng/mL Suffi cient : 30-10 0 ng/mL Not Available [facility] (Lab) [address] [place], [address], 09/25/2021 13:50:13 09/25/19 22 09/25/2021 T3 FREE free T3 4.4 pg/mL 2.77-5 .27 Not Available [facility] (Lab) [address] [place], [address], 09/25/2021 13:47:14 09/25/19 22 09/25/2021 T4 FREE free T4 1.73 NG/dL 0.78-2 .19 Not Available [facility] (Lab) [address] [place], [address], 09/25/2021 13:47:13 09/25/19 22 09/25/2021 PARAT HY.HO RM(PT H)INT ACT-W /O CA intact parathyroid hormone 39.8 pg/mL 24.0-7 8.0 Not Available [facility] (Lab) [address] [place], [address], 09/25/2021 13:45:35 09/25/19 22 09/25/2021 COMPR EHENS TERI METAB OLIC PANEL sodium 141 mmol/ L 137-14 5 Not Available [facility] (Lab) [address] [place], [address], 09/25/2021 13:30:01 09/25/19 22 09/25/2021 COMPR EHENS TERI METAB OLIC PANEL potassium 4.5 mmol/ L 3.5-5. 1 Not Available [facility] (Lab) [address] [place], [address], 09/25/2021 13:30:01 09/25/19 22 09/25/2021 COMPR EHENS TERI METAB OLIC PANEL chloride 107 mmol/ L 98-107 Not Available [facility] (Lab) [address] [place], [address], 09/25/2021 13:30:01 09/25/19 22 09/25/2021 COMPR EHENS TERI METAB OLIC PANEL carbon dioxide 24 mmol/ L 22-30 Not Available [facility] (Lab) [address] [place], [address], 09/25/2021 13:30:01 09/25/19 22 09/25/2021 COMPR EHENS TERI METAB OLIC PANEL agap 14.5 mmol/ L 14-22 Not Available [facility] (Lab) [address] [place], [address], 09/25/2021 13:30:09/25/19 22 09/25/2021 COMPR EHENS TERI METAB OLIC PANEL glucose 97 mg/dL 70-99 Not Available [facility] (Lab) [address] [place], [address], 09/25/2021 13:30:01 09/25/19 22 09/25/2021 COMPR EHENS TERI METAB OLIC PANEL BUN 17 mg/dL 8-19 Not Available [facility] (Lab) [address] [place], [address], 09/25/2021 13:30:01 09/25/19 22 09/25/2021 COMPR EHENS TERI METAB OLIC PANEL creatinine 0.63 mg/dL 0.66-1 .25 low Not Available [facility] (Lab) [address] [place], [address], 09/25/2021 13:30:01 09/25/19 22 09/25/2021 COMPR EHENS TERI METAB OLIC PANEL GFR >60 Refer ence Range : Toivola ge GFR Healt hy Adult : >60 [...] or ethni c subgr oups, such as Hisar nics. Outsi de the valid ated lanie [...] s/kdo qi/gf r_cal culat or Not Available [facility] (Lab) [address] [place], [address], 09/25/2021 13:30:01 09/25/19 22 09/25/2021 COMPR EHENS TERI METAB OLIC PANEL alkaline phosphatase 111 U/L 38-126 Not Available [facility] (Lab) [address] [place], [address], 09/25/2021 13:30:01 09/25/19 22 09/25/2021 COMPR EHENS TERI METAB OLIC PANEL alanine aminotransfe rase 20 U/L 0-35 Not Available [facility] (Lab) [address] [place], [address], 09/25/2021 13:30:01 09/25/19 22 09/25/2021 COMPR EHENS TERI METAB OLIC PANEL aspartate aminotransfe rase 28 U/L 15-37 Not Available [facility] (Lab) [address] [place], [address], 09/25/2021 13:30:01 09/25/19 22 09/25/2021 COMPR EHENS TERI METAB OLIC PANEL bilirubin, total 0.90 mg/dL 0.20-1 .30 Not Available [facility] (Lab) [address] [place], [address], 09/25/2021 13:30:01 09/25/19 22 09/25/2021 COMPR EHENS TERI METAB OLIC PANEL calcium 9.4 mg/dL 8.4-10 .2 Not Available [facility] (Lab) [address] [place], [address], 09/25/2021 13:30:01 09/25/19 22 09/25/2021 COMPR EHENS TERI METAB OLIC PANEL total protein 7.2 g/dL 6.3-8. 2 Not Available [facility] (Lab) [address] [place], [address], 09/25/2021 13:30:01 09/25/19 22 09/25/2021 COMPR EHENS TERI METAB OLIC PANEL albumin 4.3 g/dL 3.0-4. 4 Not Available [facility] (Lab) [address] [place], [address], 09/25/2021 13:30:01 09/25/19 22 09/25/2021 COMPR EHENS TERI METAB OLIC PANEL globulin 2.9 g/dL 2.6-4. 2 Not Available [facility] (Lab) [address] [place], [address], 09/25/2021 13:30:01 09/25/19 22 09/25/2021 COMPR EHENS TERI METAB OLIC PANEL A/G ratio 1.5 ratio 1.0-2. 0 Not Available [facility] (Lab) [address] [place], [address], 09/25/2021 13:30:01 03/17/20 22 03/24/2022 TESTO STERO NE, FREE+ TOTAL LC/MS testosterone , total, lc/MS 7.2 NG/dL 7.0-40 .0 Not Available [facility] (Lab) [address] [place], [address], 03/24/2022 18:08:23 03/17/20 22 03/24/2022 TESTO STERO NE, FREE+ TOTAL LC/MS testosterone , free 0.11 NG/dL 0.10-0 .85 Not Available [facility] (Lab) [address] [place], [address], 03/24/2022 18:08:23 03/17/20 22 03/24/2022 TESTO STERO NE, FREE+ TOTAL LC/MS % free testosterone 1.56 % 0.50-2 .80 Perfo rmed at: - [facility] [place] [address] [facility] [place] [address] Lab Direc tor: Olga pham MD, Phone : [phone] Not Available [facility] (Lab) [address] [place], [address], 03/24/2022 18:08:23 03/17/20 22 03/18/2022 THYRO GLOBU MILAGRO ANTIB STEVE thyroglobuli n antibody <1.0 IU/mL 0.0-0. 9 Thyro globu milagro Antib steve measu red by Margot Ballesteros er Metho dolog y Perfo rmed at: [facility] [address] [place] [address] Lab Direc tor: Harsha amado PhD, Phone : [phone] Not Available [facility] (Lab) [address] [place], [address], 03/18/2022 17:08:53 03/17/20 22 03/18/2022 DHEA- SULFA TE DHEA-sulfate 8.8 ug/dL 20.4-1 86.6 low Perfo rmed at: [facility] [address] [place] [address] Lab Direc tor: Harsha amado PhD, Phone : [phone] Not Available [facility] (Lab) [address] [place], [address], 03/18/2022 08:15:03 03/17/2003/17/2022 TSH thyroid-stim ulating hormone <0.015 uIU/m L 0.465- 4.680 low Not Available [facility] (Lab) [address] [place], [address], 03/17/2022 14:08:14 03/17/20 22 03/17/2022 T4 FREE free T4 2.14 NG/dL 0.78-2 .19 Not Available [facility] (Lab) [address] [place], [address], 03/17/2022 13:56:20 03/17/20 22 03/17/2022 VITAM IN D 25-HY DROXY vd25oh 55.4 NG/mL 30-100 Vitam in D Statu s: Defic ient: <20 ng/mL Insuf ficie nt: 20-29 ng/mL Suffi cient : 30-10 0 ng/mL Not Available [facility] (Lab) [address] [place], [address], 03/17/2022 13:56:15 03/17/20 22 03/17/2022 IRON/ TIBC PANEL total iron binding capacity 390 mcg/d L 265-47 5 Not Available [facility] (Lab) [address] [place], [address], 03/17/2022 13:42:35 03/17/20 22 03/17/2022 IRON/ TIBC PANEL % transferrin saturation 22 % 20-55 Not Available [facility] (Lab) [address] [place], [address], 03/17/2022 13:42:35 03/17/20 22 03/17/2022 IRON/ TIBC PANEL unsaturated iron bind capacity 304 mcg/d L 126-38 2 Not Available [facility] (Lab) [address] [place], [address], 03/17/2022 13:42:35 03/17/20 22 03/17/2022 IRON/ TIBC PANEL iron 86 mcg/d L 42-175 Not Available [facility] (Lab) [address] [place], [address], 03/17/2022 13:42:35 03/17/20 22 03/17/2022 COMPR EHENS TERI METAB OLIC PANEL sodium 138 mmol/ L 137-[address] [facility] (Lab) [address] [place], [address], 03/17/2022 13:36:19 03/17/20 22 03/17/2022 COMPR EHENS TERI METAB OLIC PANEL potassium 4.5 mmol/ L 3.5-5. 1 Not Available [facility] (Lab) [address] [place], [address], 03/17/2022 13:36:19 03/17/20 22 03/17/2022 COMPR EHENS TERI METAB OLIC PANEL chloride 106 mmol/ L 98-[address] [facility] (Lab) [address] [place], [address], 03/17/2022 13:36:19 03/17/20 22 03/17/2022 COMPR EHENS TERI METAB OLIC PANEL carbon dioxide 24 mmol/ L 22-[address] [facility] (Lab) [address] [place], [address], 03/17/2022 13:36:19 03/17/20 22 03/17/2022 COMPR EHENS TERI METAB OLIC PANEL anion gap 12.5 mmol/ L 14-22 low Not Available [facility] (Lab) [address] [place], [address], 03/17/2022 13:36:19 03/17/20 22 03/17/2022 COMPR EHENS TERI METAB OLIC PANEL glucose 102 mg/dL 70-99 high Not Available [facility] (Lab) [address] [place], [address], 03/17/2022 13:36:19 03/17/20 22 03/17/2022 COMPR EHENS TERI METAB OLIC PANEL BUN 17 mg/dL 8-19 Not Available [facility] (Lab) [address] [place], [address], 03/17/2022 13:36:19 03/17/20 22 03/17/2022 COMPR EHENS TERI METAB OLIC PANEL creatinine 0.70 mg/dL 0.66-1 .25 Not Available [facility] (Lab) [address] [place], [address], 03/17/2022 13:36:19 03/17/20 22 03/17/2022 COMPR EHENS TERI METAB OLIC PANEL GFR >60 Refer ence Range : Toivola ge GFR Healt hy Adult : >60 mL/mi n/1.7 3 m2 Chron ic Kidne y Disea se: 15-60 mL/mi n/1.7 3 m2 Kidne y Failu re: <15/m L/min /1.73 m2 www.n iddk. [facility].g ov The MDRD study equat ion has not been valid ated in child miki <18 years of age; pregn ant women ; the elder ly >85 years of age; or in some racia l or ethni c subgr oups, such as Hisar nics. Outsi de the valid ated lanie [...] s/kdo qi/gf r_cal culat or Not Available [facility] (Lab) [address] [place], [address], 03/17/2022 13:36:19 03/17/20 22 03/17/2022 COMPR EHENS TERI METAB OLIC PANEL alkaline phosphatase 130 U/L 38-126 high Not Available [facility] (Lab) [address] [place], [address], 03/17/2022 13:36:19 03/17/20 22 03/17/2022 COMPR EHENS TERI METAB OLIC PANEL alanine aminotransfe rase 17 U/L 0-35 Not Available [facility] (Lab) [address] [place], [address], 03/17/2022 13:36:19 03/17/20 22 03/17/2022 COMPR EHENS TERI METAB OLIC PANEL aspartate aminotransfe rase 22 U/L 15-37 Not Available [facility] (Lab) [address] [place], [address], 03/17/2022 13:36:19 03/17/20 22 03/17/2022 COMPR EHENS TERI METAB OLIC PANEL bilirubin, total 0.70 mg/dL 0.20-1 .30 Not Available [facility] (Lab) [address] [place], [address], 03/17/2022 13:36:19 03/17/20 22 03/17/2022 COMPR EHENS TERI METAB OLIC PANEL calcium 9.9 mg/dL 8.4-10 .2 Not Available [facility] (Lab) [address] [place], [address], 03/17/2022 13:36:19 03/17/20 22 03/17/2022 COMPR EHENS TERI METAB OLIC PANEL total protein 7.2 g/dL 6.3-8. 2 Not Available [facility] (Lab) [address] [place], [address], 03/17/2022 13:36:19 03/17/20 22 03/17/2022 COMPR EHENS TERI METAB OLIC PANEL albumin 4.2 g/dL 3.0-4. 4 Not Available [facility] (Lab) [address] [place], [address], 03/17/2022 13:36:19 03/17/20 22 03/17/2022 COMPR EHENS TERI METAB OLIC PANEL globulin 3.0 g/dL 2.6-4. 2 Not Available [facility] (Lab) [address] [place], [address], 03/17/2022 13:36:19 03/17/20 22 03/17/2022 COMPR EHENS TERI METAB OLIC PANEL A/G ratio 1.4 ratio 1.0-2. 0 Not Available [facility] (Lab) [address] [place], [address], 03/17/2022 13:36:19 05/19/20 22 05/19/2022 TSH thyroid-stim ulating hormone <0.015 uIU/m L 0.465- 4.680 low Not Available [facility] (Lab) [address] [place], [address], 05/19/2022 13:47:00 05/19/20 22 05/19/2022 T4 FREE free T4 1.66 NG/dL 0.78-2 .19 Not Available [facility] (Lab) [address] [place], [address], 05/19/2022 13:31:56 06/05/20 22 06/13/2022 THYRO GLOBU [...] [address] , [place] [address] Lab Direc tor: Olga pham MD, Phone : [phone] Not Available [facility] (Lab) [address] [place], [address], 06/13/2022 18:08:52 06/05/20 22 06/05/2022 FOLAT E, SERUM /PLAS MA folate 8.70 NG/mL 2.76-2 0.0 Not Available [facility] (Lab) [address] [place], [address], 06/05/2022 14:32:54 06/05/20 22 06/05/2022 VITAM IN B12 (SONAL CHATA ) vb12 350 pg/mL 239-93 1 Not Available [facility] (Lab) [address] [place], [address], 06/05/2022 14:32:50 06/05/20 22 06/05/2022 TSH thyroid-stim ulating hormone <0.015 uIU/m L 0.465- 4.680 low Not Available [facility] (Lab) [address] [place], [address], 06/05/2022 14:13:55 06/05/20 22 06/05/2022 T4 FREE free T4 1.66 NG/dL 0.78-2 .19 Not Available [facility] (Lab) [address] [place], [address], 06/05/2022 13:38:55 06/05/20 22 06/05/2022 COMPR EHENS TERI METAB OLIC PANEL sodium 140 mmol/ L 137-14 5 Not Available [facility] (Lab) [address] [place], [address], 06/05/2022 13:32:19 06/05/20 22 06/05/2022 COMPR EHENS TERI METAB OLIC PANEL potassium 4.4 mmol/ L 3.5-5. 1 Not Available [facility] (Lab) [address] [place], [address], 06/05/2022 13:32:19 06/05/20 22 06/05/2022 COMPR EHENS TERI METAB OLIC PANEL chloride 107 mmol/ L 98-107 Not Available [facility] (Lab) [address] [place], [address], 06/05/2022 13:32:19 06/05/20 22 06/05/2022 COMPR EHENS TERI METAB OLIC PANEL carbon dioxide 23 mmol/ L 22-30 Not Available [facility] (Lab) [address] [place], [address], 06/05/2022 13:32:19 06/05/20 22 06/05/2022 COMPR EHENS TERI METAB OLIC PANEL anion gap 14.4 mmol/ L 14-22 Not Available [facility] (Lab) [address] [place], [address], 06/05/2022 13:32:19 06/05/20 22 06/05/2022 COMPR EHENS TERI METAB OLIC PANEL glucose 98 mg/dL 70-99 Not Available [facility] (Lab) [address] [place], [address], 06/05/2022 13:32:19 06/05/20 22 06/05/2022 COMPR EHENS TERI METAB OLIC PANEL BUN 15 mg/dL 8-19 Not Available [facility] (Lab) [address] [place], [address], 06/05/2022 13:32:19 11/03/06/05/2022 COMPR EHENS TERI METAB OLIC PANEL creatinine 0.68 mg/dL 0.66-1 .25 Not Available [facility] (Lab) [address] [place], [address], 06/05/2022 13:32:19 06/05/20 22 06/05/2022 COMPR EHENS TERI METAB OLIC PANEL GFR >60 Refer ence Range : Toivola ge GFR Healt hy Adult : >60 [...] or ethni c subgr oups, such as Hisar nics. Outsi de the valid ated lanie [...] calcu lator is avail able on the [facility] websi te: https ://renetta w.kid kyree.o rg/pr judyess ional s/kdo qi/gf r_cal culat or Not Available [facility] (Lab) [address] [place], [address], 06/05/2022 13:32:19 06/05/20 22 06/05/2022 COMPR EHENS TERI METAB OLIC PANEL alkaline phosphatase 120 U/L 38-126 Not Available [facility] (Lab) [address] [place], [address], 06/05/2022 13:32:19 06/05/20 22 06/05/2022 COMPR EHENS TERI METAB OLIC PANEL alanine aminotransfe rase 18 U/L 0-35 Not Available [facility] (Lab) [address] [place], [address], 06/05/2022 13:32:19 06/05/20 22 06/05/2022 COMPR EHENS TERI METAB OLIC PANEL aspartate aminotransfe rase 23 U/L 15-37 Not Available [facility] (Lab) [address] [place], [address], 06/05/2022 13:32:19 06/05/20 22 06/05/2022 COMPR EHENS TERI METAB OLIC PANEL bilirubin, total 0.70 mg/dL 0.20-1 .30 Not Available [facility] (Lab) [address] [place], [address], 06/05/2022 13:32:19 06/05/20 22 06/05/2022 COMPR EHENS TERI METAB OLIC PANEL calcium 9.4 mg/dL 8.4-10 .2 Not Available [facility] (Lab) [address] [place], [address], 06/05/2022 13:32:19 06/05/20 22 06/05/2022 COMPR EHENS TERI METAB OLIC PANEL total protein 6.7 g/dL 6.3-8. 2 Not Available [facility] (Lab) [address] [place], [address], 06/05/2022 13:32:19 06/05/20 22 06/05/2022 COMPR EHENS TERI METAB OLIC PANEL albumin 4.1 g/dL 3.0-4. 4 Not Available [facility] (Lab) [address] [place], [address], 06/05/2022 13:32:19 06/05/20 22 06/05/2022 COMPR EHENS TERI METAB OLIC PANEL globulin 2.6 g/dL 2.6-4. [address] [facility] (Lab) [address] [place], [address], 06/05/2022 13:32:19 06/05/20 22 06/05/2022 COMPR EHENS TERI METAB OLIC PANEL A/G ratio 1.6 ratio 1.0-2. [address] [facility] (Lab) [address] [place], [address], 06/05/2022 13:32:19 10/10/19 23 10/09/2022 COMPR EHENS TERI METAB OLIC PANEL sodium 138 mmol/ L 137-14 5 Not Available [facility] (Lab) [address] [place], [address], 10/09/2022 12:57:29 10/10/19 23 10/09/2022 COMPR EHENS TERI METAB OLIC PANEL potassium 4.4 mmol/ L 3.5-5. 1 Not Available [facility] (Lab) [address] [place], [address], 10/09/2022 12:57:29 10/10/19 23 10/09/2022 COMPR EHENS TERI METAB OLIC PANEL chloride 105 mmol/ L 98-107 Not Available [facility] (Lab) [address] [place], [address], 10/09/2022 12:57:29 10/10/19 23 10/09/2022 COMPR EHENS TERI METAB OLIC PANEL carbon dioxide 25 mmol/ L 22-30 Not Available [facility] (Lab) [address] [place], [address], 10/09/2022 12:57:29 10/10/19 23 10/09/2022 COMPR EHENS TERI METAB OLIC PANEL anion gap 12.4 mmol/ L 14-22 low Not Available [facility] (Lab) [address] [place], [address], 10/09/2022 12:57:29 10/10/19 23 10/09/2022 COMPR EHENS TERI METAB OLIC PANEL glucose 109 mg/dL 70-99 high Not Available [facility] (Lab) [address] [place], [address], 10/09/2022 12:57:29 10/10/19 23 10/09/2022 COMPR EHENS TERI METAB OLIC PANEL BUN 13 mg/dL 8-19 Not Available [facility] (Lab) [address] [place], [address], 10/09/2022 12:57:29 10/10/19 23 10/09/2022 COMPR EHENS TERI METAB OLIC PANEL creatinine 0.75 mg/dL 0.66-1 .25 Not Available [facility] (Lab) [address] [place], [address], 10/09/2022 12:57:29 10/10/19 23 10/09/2022 COMPR EHENS TERI METAB OLIC PANEL GFR >60 Refer ence Range : [place] ge GFR Healt hy Adult : >60 [...] deneenu latjulia is avail able on the [facility] websi te: [email or web address] ofess ional s/kdo qi/gf r_cal culat or Not Available [facility] (Lab) [address] [place], [address], 10/09/2022 12:57:29 10/10/19 23 10/09/2022 COMPR EHENS TERI METAB OLIC PANEL alkaline phosphatase 108 U/L 38-126 Not Available [facility] (Lab) [address] [place], [address], 10/09/2022 12:57:29 10/10/19 23 10/09/2022 COMPR EHENS TERI METAB OLIC PANEL alanine aminotransfe rase 22 U/L 0-35 Not Available [facility] (Lab) [address] [place], [address], 10/09/2022 12:57:29 10/10/19 23 10/09/2022 COMPR EHENS TERI METAB OLIC PANEL aspartate aminotransfe rase 25 U/L 15-37 Not Available [facility] (Lab) [address] [place], [address], 10/09/2022 12:57:29 10/10/19 23 10/09/2022 COMPR EHENS TERI METAB OLIC PANEL bilirubin, total 0.70 mg/dL 0.20-1 .30 Not Available [facility] (Lab) [address] [place], [address], 10/09/2022 12:57:29 10/10/19 23 10/09/2022 COMPR EHENS TERI METAB OLIC PANEL calcium 9.6 mg/dL 8.4-10 .2 Not Available [facility] (Lab) [address] [place], [address], 10/09/2022 12:57:29 10/10/1910/09/2022 COMPR EHENS TERI METAB OLIC PANEL total protein 7.2 g/dL 6.3-8. 2 Not Available [facility] (Lab) [address] [place], [address], 10/09/2022 12:57:29 10/10/19 23 10/09/2022 COMPR EHENS TERI METAB OLIC PANEL albumin 4.2 g/dL 3.0-4. 4 Not Available [facility] (Lab) [address] [place], [address], 10/09/2022 12:57:29 10/10/19 23 10/09/2022 COMPR EHENS TERI METAB OLIC PANEL globulin 3.0 g/dL 2.6-4. [address] [facility] (Lab) [address] [place], [address], 10/09/2022 12:57:29 10/10/19 23 10/09/2022 COMPR EHENS TERI METAB OLIC PANEL A/G ratio 1.4 ratio 1.0-2. 0 Not Available [facility] (Lab) [address] [place], [address], 10/09/2022 12:57:29 10/10/19 23 10/09/2022 T4 FREE free T4 1.65 NG/dL 0.78-2 .19 Not Available [facility] (Lab) [address] [place], [address], 10/09/2022 13:52:01 10/10/1910/09/2022 TSH thyroid-stim ulating hormone <0.015 uIU/m L 0.465- 4.680 low Not Available [facility] (Lab) [address] [place], [address], 10/09/2022 13:53:06 10/10/19 23 10/09/2022 VITAM IN B12 (SONAL CHATA ) vb12 451 pg/mL 239-93 1 Not Available [facility] (Lab) [address] [place], [address], 10/09/2022 14:02:05 10/10/19 23 10/09/2022 FOLAT E, SERUM /PLAS MA folate 14.4 NG/mL 2.76-2 0.0 Not Available [facility] (Lab) [address] [place], [address], 10/09/2022 14:02:10 10/10/19 23 10/10/2022 THYRO GLOBU MILAGRO ANTIB STEVE thyroglobuli n antibody <1.0 IU/mL 0.0-0. 9 Thyro globu milagro Antib steve measu red by Margot Ballesteros er Metho dolog y Perfo rmed at: - [facility] [address] [id number] 1825 Lab Direc tor: Harsha amado PhD, Phone : [phone] Not Available [facility] (Lab) [address] [place], [address], 10/10/2022 15:11:44 10/10/19 23 10/17/2022 THYRO GLOBU [...] BN - [facility] [place] [address] , [place] [address] Lab Direc tor: Olga pham MD, Phone : [phone] Not Available [facility] (Lab) [address] [place], [address], 10/17/2022 13:11:06 10/27/19 22 10/25/2021 US, thyro id No observ ation record ed. [id number], [place], [address], 10/01/2022 04:59:49 06/02/20 23 06/02/2023 bone densi ty No observ ation record ed. [email or web address] [address] [facility], [place], [address], 07/13/2023 16:42:13 Result Notes None recorded. Problems Name Problem SNOMED Code Status Onset Date Resolution Date Notes Provider Name and Address Organization Details Recorded Time Postoperative hypothyroidism 88071481 Active 2022 Yanelis Martinez MD [address], [address], [employer] 3 12:53:56 Osteopenia 008945139 Active 2022 Yanelis Martinez MD [address], [address], [employer] 3 12:54:42 Steroid-induce d hyperglycemia 055342046 Active 2022 Yanelis Martinez MD [address], [address], [employer] 3 12:55:59 Problem Notes None recorded. Procedures [...] Details LastModified Time 10/25/2021 US, thyroid completed [id number] [place] [address], [address], 10/01/2022 04:59:49 06/02/2023 bone density completed [email or web address] [facility] [address] [facility] [address], [place], [address], 07/13/2023 16:42:13 Procedure Notes None recorded. Medical Equipment None Reported. Allergies Allergen ID Allergen Name Allergen Category Reaction Reaction Severity Criticality Documentation Date Start Date Code Code System Note Provider Name and Address Organization Details Recorded Time 7309 Synthroid medicatio n hives Not available Not available 10/01/2022 40502 0 RxNorm Not Available [facility] 3 04:59:26 7310 sulfameth oxazole / trimethop rim medicatio n Not available Not available Not available 10/01/2022 75963 RxNorm Not Available [facility] 3 04:59:26 7311 Substance with sulfonami de structure and antibacte rial mechanism of action (substanc e) medicatio n Not available Not available Not available 10/01/2022 37531 8003 SNOMED Not Available [facility] 3 04:59:26 7312 Product containin g penicilli n and antibioti c (product) medicatio n Not available Not available Not available 10/01/2022 71786 05 SNOMED Not Available [facility] 3 04:59:26 7313 levothyro xine sodium medicatio n hives Not available Not available 10/01/2022 28853 RxNorm Not Available [facility] 3 04:59:27 7314 levofloxa parag medicatio n Not available Not available Not available 10/01/2022 38919 RxNorm Not Available [facility] 3 04:59:27 7315 iodine medicatio n Not available Not available Not available 10/01/2022 5933 RxNorm Not Available [facility] 3 04:59:27 7316 Iodinated contrast media (substanc e) medicatio n Not available Not available Not available 10/01/2022 94530 2004 SNOMED Not Available [facility] 3 04:59:27 7317 amoxicill in medicatio n Not available Not available Not available 10/01/2022 723 RxNorm Not Available [facility] 3 04:59:27 Medications Name Sig Start Date Stop Date Status Note LastModified by Organization Details LastModified Time amoxicillin 500 mg capsule 03/24 completed Not Available Not Available Not Available [place] Thyroid 60 mg tablet 03/04 completed Not [...] completed Not Available Not Available Not Available [place] Thyroid 15 mg tablet 11/19 completed Not [...] Date Recorded Body mass index (BMI) Body mass index (BMI) Body height Body height Body height Oxygen saturation Oxygen saturation in Arterial blood by Pulse oximetry Oxygen saturation Oxygen saturation in Arterial blood by Pulse oximetry Oxygen saturation Oxygen saturation in Arterial blood by Pulse oximetry Heart rate Heart rate Heart rate Respiratory rate Body temperature Body temperature Body temperature Body weight Body weight Systolic blood pressure Diastolic blood pressure Systolic blood pressure Diastolic blood pressure Systolic blood pressure Diastolic blood pressure Provider Name and Address Organization Details Last Updated DateTime 3 30.5 kg/m2 28.5 kg/m2 160.02 cm 160.02 cm 160.02 cm 99 % 99 % 97 % 97 % 98 % 98 % 80 /min 71 /min 70 /min 16 /min 98.2 [degF] 97.8 [degF] 97.8 [degF] 06514.8 9 g 35138.3 7 g 120 mm[Hg] 80 mm[Hg] 140 mm[Hg] 95 mm[Hg] 125 mm[Hg] 80 mm[Hg] Not Available [facility] 3 04:49:52 Date Recorded Body height Body mass index (BMI) Body weight Body temperature Heart rate Systolic blood pressure Diastolic blood pressure Provider Name and Address Organization Details Last Updated DateTime 3 160.02 cm 29.7 kg/m2 53362.0 8 g 98 [degF] 77 /min 159 mm[Hg] 87 mm[Hg] QUAN [place] [employer] [facility] 3 12:42:43 Date Recorded Body height Body mass index (BMI) Body weight Heart rate Provider Name and Address Organization Details Last Updated DateTime 05/08/2023 160.02 cm 29.1 kg/m2 44577.15 g 98 /min Heike Garcia [employer] [facility] 05/08/2023 08:58:52 Social History Question Answer Notes LastModified by Organizat ion Details LastModified Time Tobacco Smoking Status Former Smoker quit 2001 Not Available [facility] 10/01/2022 04:42:28 What Is Your Level Of Alcohol Consumption? Occasional [id number] Information not available 10/01/2022 What Is Your Level Of Caffeine Consumption? Moderate [id number].09081 [id number] Information not available 10/01/2022 How Much Tobacco Do You Chew? None [id number].12537 [id number] Information not available 10/01/2022 In The 14 Days Before Symptom Onset, Have You Had Close Contact With A Laboratory-confir med COVID-19 While That Case Was Ill? No [id number].26375 [id number] Information not available 10/01/2022 In The 14 Days Before Symptom Onset, Have You Had Close Contact With A Person Who Is Under Investigation For COVID-19 While That Person Was Ill? No [id number].40490 [id number] Information not available 10/01/2022 Which Illicit Or Recreational Drugs Have You Used? None [id number].63159 [id number] Information not available 10/01/2022 Do You Or Have You Ever Used E-cigarettes Or Vape? Never Used Electronic Cigarettes MIGRATION.[id number] [id number] Information not available 10/01/2022 Have You Recently Traveled Abroad? No MIGRATION.18057 87562 Information not available 10/01/2022 Sex: Female Functional Status None recorded. Mental Status None recorded. Family History Relationship Description Onset Age of this Age Resolved Age Notes LastModified by Organization Details LastModified Time Father Diabetes mellitus [id number].306 [id number] Not available 10/01/2022 04:42:45 Father Hypertensive disorder MIGRATION.150 [id number] Not available 10/01/2022 04:42:45 Father Heart disease [id number].700 [id number] Not available 10/01/2022 04:42:45 Mother Diabetes mellitus [id number].158 [id number] Not available 10/01/2022 04:42:45 Mother Disorder of thyroid gland MIGRATION.453 [id number] Not available 10/01/2022 04:42:45 Sister Diabetes mellitus MIGRATION.803 [id number] Not available 10/01/2022 04:42:45 Brother Heart disease [id number].213 [id number] Not available 10/01/2022 04:42:45 Brother Diabetes mellitus x3 MIGRATION.289 [id number] Not available 10/01/2022 04:42:46 Medical History Condition Response HYPOTHYROIDISM Y HAVE YOU BEEN HOSPITALIZED OR SEEN IN [facility] IN THE PAST YEAR ? Y THYROID DISEASE Y HEADACHES/MIGRAINES Y CANCER: SPECIFY Y Gynecological HistoryNo gynecological history recorded. Obstetrics History GPAL:G 0 P 0 0 0 0 Past Encounters Encounter ID Performer Location Encounter Start Date Encounter Closed Date Diagnosis/Indication Diagnosis SNOMED-CT Code Diagnosis ICD10 Code Diagnosis Note [id number] [facility] [address] [place] [address] 11/19/2020 00:00:00 11/19/2020 13:44:46 [id number] [facility] [address] [place] [address] 03/04/2021 00:00:00 03/04/2021 11:23:05 [id number] [facility] [address] [place] [address] 06/10/2021 00:00:00 06/10/2021 12:36:45 [id number] [facility] [address] [place] [address] 10/07/2021 00:00:00 10/07/2021 14:52:17 [id number] [facility] [address] [place] [address] 03/24/2022 00:00:00 03/24/2022 13:30:15 [id number] Yanelis Martinez MD [facility] [address] [place] [address] 10/16/2022 12:34:58 10/16/2022 14:03:43 Postoperative hypothyroidism 13622652 E89.0 TSH suppressed however was on high dose prednisone which is known to suppress TSH levels- FT4 in ideal range and TG panel negative- continue on tirosint 100 mcg daily. Thyroid u/s clear of thyroid tissue from 10/25/22. Continue current regimen. Osteopenia 956951446 M85 .80 Send for repeat bone density this summer to monitor for any evidence of bone loss. She is on chronic high dose LT4 for hx of thyroid ca and has been on steroid therapy so higher risk for bone loss. Steroid-in duced hyperglycemia 092827599 R73.9 She had high dose steroid therapy for URI this past winter- glucose of 109 mg/dL during therapy- will send for a1c and insulin to screen for true hyperglyce kem or concern for underlying impaired glucose. Discussed carb counting and how to read food labels. Recommende d patient to utilize the diabetesfo [employer] [place] [employer] from the ADA website to help with food preparatio n as this presents ideal carb content per meal so this will make carb counting much easier for patient. Recommende d she incorporat e natural insulin program specialist s such as pears, apples, cinnamon, nahomi [...] she chooses to go outside of the [facility] to obtain labwork she was [...] in her case. She voiced understand ing. [id number] Yanelis Martinez MD [facility] [address] [place] [address] 05/08/2023 08:52:55 05/08/2023 09:25:33 Postoperative hypothyroidism 58052678 E89.0 TSH just under 0.1 uIU/ml but [...] Marrero Member ID Guarantor Name 10/16/2022 1 [place] (MEDICARE) Marley Stephenson [id number] Marley Stephenson 10/16/2022 2 WPS - FOR LIFE (MEDICARE SUPPLEMENT) Morales Stephenson [id number] Marley Stephenson 05/08/2023 1 [place]ICARE[place] Marley Stephenson [id number] Marley Stephenson 05/08/2023 2 WPS - FOR LIFE (MEDICARE SUPPLEMENT) Morales Stephenson [id number] Marley Stephenson Notes Date Note Type Note [...] marginally elevated. She saw Dr. Peter in [place] -was given prednisone and z pack. The infection came back within a few days. She was given a 14 day course of prednisone taper. Her BP was elevated secondary to the steroid therapy. She stopped her last prednisone dose 2 weeks ago. labs from 10/23:TG negTSH <0.015 uIU/mlFT4 of 1.65 ng/dLB12/folate normalglucose 109 mg/dLCr normalLFT normal Yanelis Martinez MD [address] [facility] [address], [place], [address], [place] - [facility] 10/16/2022 13:58:41 05/08/2023 text/html 68 yo female [...] D 53 ng/mL Yanelis Martinez MD [address] [facility] [address], [place], [address], [place] [facility] 05/08/2023 09:37:40 OBGyn Episode No OBEpisode recorded.
--- OUTSIDE RECORDS SUMMARY | 2024-09-06 12:03 | XMS_ITS ---
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
--- OUTSIDE RECORDS SUMMARY | 2024-09-06 12:03 | XMS_ITS | Clinical Summary ---
Author Organization [facility] Address [address] [place] [address]. [place], [place] [address] [place] [address] Care Team Providers Care Boardinghouse Keeper Name Role Phone Elizabet Campos MD Primary Care Provider [phone] Social History Tobacco Use Types Packs/Day Years [...] age to complete this topic Insurance MEDICARE [facility] Care Teams Boardinghouse Keeper Relationship Specialty Start Date End Date Elizabet Campos MD [address] [place] [address] PCP - General INTERNAL MEDICINE 12/14/17
--- OUTSIDE RECORDS SUMMARY | 2024-09-06 12:03 | XMS_ITS | Encounter Summary ---
Author Organization [facility] Address [address] [place] [address] Care Team Providers Care Milk Inspector Name Role Phone Elizabet Campos MD Primary Care Provider [phone] Isac Nolasco MD Unavailable [phone] Hayley Walsh MD Unavailable [phone] Encounter Details Date Type Department Care Team (Late st Contact Info) Description 11/20/2020 Telephone [facility] [address] [place] [address] Sugey Shah, RT Social History [...] on file Legal Sex Female 4:01 AM DIRECTOR OF ARCHIVES Gender Identity Not on file Sexual Orientation Not on file documented as of this encounter Plan of Treatment Not on file documented as of this encounter Visit Diagnoses Not on filedocumented in this encounter Care Teams Milk Inspector Relationship Specialty Start Date End Date Elizabet Campos MD [address] [place] [address] PCP - General 04/27/18 Isac Nolasco MD [address] [address] Radiation Oncologist Radiation Oncology 04/27/1808/04/ 4 Hayley Walsh MD [address] [place] [address] Referring Physician Internal Medicine 04/28/18 documented as of this encounter
--- OUTSIDE RECORDS SUMMARY | 2024-09-06 12:03 | XMS_ITS | Clinical Summary ---
Author Organization [facility] Address [address] [place] [address] Care Team Providers Care Shale Planer Operator Name Role Phone Elizabet Campos MD Primary Care Provider [phone] Hayley Walsh MD Unavailable [phone] Allergies Active Allergy Reactions Criticality Noted Date Comments Amoxicillin-Pot Clavulanate Hives Medium 05/29/20 20 Iodinated Contrast Media Hives Medium 08/30/2020 Levofloxacin Hives Medium 03/08/2018 Levothyroxine Hives Medium 07/14/2018 Sulfa (Sulfonamide Antibiotics) Hives Medium Medications omega 6-csv-ikk-fish oil 1,000 mg (120 mg-180 mg) capsuleIndicati [...] (six) hours as needed for pain Active [place] Thyroid 60 mg tabletIndicatio ns:hypothyroidi sm Take [...] (08/16/2020): Added automatically from request for surgery [id number] Metastatic papillary carcinoma 08/16/2020 Overview (08/16/2020): Added automatically from request for surgery [id number] Thyroid cancer 04/28/2018 Cancer Staging:Pathologic stage from [...] on file Legal Sex Female 4: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 TREATMENT PLANT SUPERVISOR Gender Identity Not on file Sexual Orientation Not on file Obstetrics History Comments Hysterectomy 1989 Last Filed Vital Signs Vital Sign Reading Time Taken Comments Blood Pressure 120/59 09/13/2020 7:50 AM WATER TREATMENT PLANT SUPERVISOR Pulse 60 09/13/2020 7:50 AM WATER TREATMENT PLANT SUPERVISOR Temperature 36.6 ??C (97.8 ??F) 09/13/2020 7:50 AM CS T Respiratory Rate 16 09/13/2020 7:50 AM WATER TREATMENT PLANT SUPERVISOR Oxygen Saturation 97% 09/13/2020 7:50 AM WATER TREATMENT PLANT SUPERVISOR Inhaled Oxygen Concentration - - Weight [...] 09/12/2021 09/12/2020 Influenza Vaccine (#1) 2024 Insurance [id number] [place] [address] MEDICARE [facility] MEDICARE MEDICARE Advance Directives For more information, please contact: [phone] * Full Code (Latest Code Status on File) Date Activated Date Inactivated Comments 09/12/2020 3:13 PM 09/13/2020 3:52 PM Care Teams Shale Planer Operator Relationship Specialty Start Date End Date Elizabet Campos MD [address] [place] [address] PCP - General 04/27/18 Hayley Walsh MD [address] [place] [address] Referring Physician Internal Medicine 04/28/18
--- OUTSIDE RECORDS SUMMARY | 2024-09-06 12:03 | XMS_ITS | Encounter Summary ---
Author Organization [facility] Address [address] [place] [address] Care Team Providers Care Craft Demonstrator Name Role Phone Elizabet Campos MD Primary Care Provider + Encounter Details Date Type Department Care Team (Late Contact Info) Description 12/04/2020 Chart Note [facility] Rad[facility] Therapy [address] [place] [address] [place] [address] [place] [address] Social History Tobacco Use Types [...] Description 10/10/2024 10:15 AM CDT Office Visit [facility] - [place] [address] [facility] [address] [place] [address] Hai Marroquin MD [address] [facility] [address] [place] [address] documented as of this encounter Visit Diagnoses Not on filedocumented in this encounter Care Teams Craft Demonstrator Relationship Specialty Start Date End Date Elizabet Campos MD [address] [place] [id number] PCP - General Internal Medicine 02/01/18 documented as of this encounter
--- OUTSIDE RECORDS SUMMARY | 2024-09-06 12:03 | XMS_ITS | Encounter Summary ---
Author Organization [facility] Address [address] [place] [address]. [place] [address] [place] [address] Care Team Providers Care Family Educator Name Role Phone Elizabet Campos MD Primary Care Provider [phone] Encounter Details Date Type Department Care Team (Late st Contact Info) Description 10/17/2017 Abstract [facility] CONVERSION [address] [place] [address] , Generic Conversion, Social History Tobacco Use [...] on filedocumented in this encounter Care Teams Family Educator Relationship Specialty Start Date End Date Elizabet Campos MD [address] [place] [address] PCP - General INTERNAL MEDICINE 12/14/17 documented as of this encounter
== END 2024-09-06 11:25 | disposition home or self-care (01) ==
PROVIDERS: PCP Internal Medicine Endocrinology, Diabetes & Metabolism; Visit Provider Internal Medicine Endocrinology, Diabetes & Metabolism
DX: R30.0 Dysuria (principal)
CPT/HCPCS: 87086

== ENCOUNTER 2024-10-03 08:36 | Outpatient (CLI) | payer MEDICARE, OTHER, SELFPAY ==
[2024-10-03 09:05] LABS: Basophils Absolute Auto 0.1 K/mm3 (0.0-0.1); Basophils Percent Auto 1.2 % (0.2-1.2); Eosinophils Absolute Auto 0.2 K/mm3 (0-0.3); Eosinophils Percent Auto 2.6 % (0-4.4); Hematocrit 41.3 % (37.0-47.0); Hemoglobin 13.8 g/dL (12.0-15.0); Immature Granulocyte Absolute 0.01 K/mm3 (0.00-0.031); Immature Granulocyte Percent A 0.2 % (0-0.5); Lymphocytes Absolute Auto 2.04 K/mm3 (0.9-3.2); Lymphocytes Percent Auto 35.2 % (18.3-44.2); Mean Corpuscular HGB Conc 33.4 g/dl (32-36); Mean Corpuscular Hemoglobin 30.7 pg (26-34); Mean Platelet Volume 8.2 fl (7.4-10.4); Monocytes Absolute Auto 0.5 K/mm3 (0.1-0.6); Monocytes Percent Auto 8.3 % (2.6-8.5); Neutrophils Percent Auto 52.5 % (45.5-73.1); Platelet Count Result 282 k/mm3 (150-375); Red Blood Count 4.49 M/mm3 (4.2-5.4); Red Cell Distribution Width 12.5 % (11.5-14.5); White Blood Count 5.8 K/mm3 (4.5-10.0)
[2024-10-03 10:48] LABS: Alanine Aminotransferase 18 U/L (6-35); Albumin Level 4.2 g/dL (3.5-5.1); Alkaline Phosphatase 129 U/L (38-126); Anion Gap 12 mmol/L (4-12); Aspartate Amino Transferase 21 U/L (14-36); Bilirubin,Total 0.7 mg/dL (0.2-1.3); Blood Urea Nitrogen 19 mg/dL (7-17); Calcium 9.5 mg/dL (8.4-10.2); Carbon Dioxide 24 mmol/L (22-30); Chloride 105 mmol/L (98-107); Estimated Glomerular Filt Rate > 60; Glucose 98 mg/dL (65-110); Potassium 4.4 mmol/L (3.4-5.0); Sodium 141 mmol/L (137-145)
[2024-10-03 11:15] LABS: Thyroid Stimulating Hormone 0.195 uIU/mL (0.465-4.680)
[2024-10-05 08:53] LABS: Thyroglobulin 0.1 ng/mL; Thyroglobulin Antibodies <1 IU/mL (< or = 1)
== END 2024-10-03 08:37 | disposition home or self-care (01) ==
LOC: ANHLAB 08:37
PROVIDERS: PCP Internal Medicine Endocrinology, Diabetes & Metabolism; Visit Provider Internal Medicine Hematology & Oncology
DX: C73 Malignant neoplasm of thyroid gland (principal)
CPT/HCPCS: 36415; 80053; 84432; 84443; 85025; 86800

== ENCOUNTER 2024-10-03 09:35 | Outpatient (CLI) | payer MEDICARE, OTHER, SELFPAY | END 2024-10-03 09:36 | disposition home or self-care (01) | PROVIDERS: PCP Internal Medicine; Visit Provider Internal Medicine Hematology & Oncology | DX: C73 Malignant neoplasm of thyroid gland (principal); Z90.89 Acquired absence of other organs | CPT/HCPCS: 76536 ==

== ENCOUNTER 2024-10-25 14:07 | Outpatient (CLI) | payer MEDICARE, OTHER, SELFPAY ==
--- NOTE | ~2024-10-25 | MM_ITS ---
EXAMINATION: MM screening [facility] BI w carlos enrique HISTORY: Screening TECHNIQUE: Craniocaudal and mediolateral oblique 3-D tomosynthesis images were obtained and synthetic 2-D images were generated. CAD analysis was submitted and interpreted. COMPARISON: 01/03/2022 and dating back to 10/06/2018 BREAST PARENCHYMAL COMPOSITION: There are scattered areas of fibroglandular density. FINDINGS: Punctate and bulky calcifications are detected bilaterally, stable and benign in appearance . Punctate calcifications detected bilaterally, vascular in origin and benign in appearance. Stable parenchymal pattern without suspicious microcalcifications, architectural distortion, discrete masses or significant asymmetry. IMPRESSION: 1. No mammographic evidence of malignancy. 2. Recommend routine screening mammography in one year. BI-RADS Category 2: Benign finding(s). Reviewed, dictated and finalized at location A.
--- OUTSIDE RECORDS SUMMARY | 2024-10-25 16:34 | XMS_ITS | Clinical Summary ---
Author Organization [facility] Address [address] [place] [address] Care Team Providers Care Commercial Diver Name Role Phone Elizabet Campos MD Primary Care Provider [phone] Hayley Walsh MD Unavailable [phone] Allergies Active Allergy Reactions Criticality Noted Date Comments Amoxicillin-Pot Clavulanate Hives Medium 05/29/20 20 Iodinated Contrast Media Hives Medium 08/30/2020 Levofloxacin Hives Medium 03/08/2018 Levothyroxine Hives Medium 07/14/2018 Sulfa (Sulfonamide Antibiotics) Hives Medium Medications omega 4-yyd-gqe-fish oil 1,000 mg (120 mg-180 mg) capsuleIndicati [...] (six) hours as needed for pain Active [place] Thyroid 60 mg tabletIndicatio ns:hypothyroidi sm Take [...] (08/16/2020): Added automatically from request for surgery [id number] Metastatic papillary carcinoma 08/16/2020 Overview (08/16/2020): Added automatically from request for surgery [id number] Thyroid cancer 04/28/2018 Cancer Staging:Pathologic stage from [...] on file Legal Sex Female 4:01 AM FIRE ALARM MECHANIC Gender Identity Not on file Sexual Orientation Not on file Obstetrics History Comments Hysterectomy 1989 Last Filed Vital Signs Vital Sign Reading Time Taken Comments Blood Pressure 120/59 09/13/2020 7:50 AM FIRE ALARM MECHANIC Pulse 60 09/13/2020 7:50 AM FIRE ALARM MECHANIC Temperature 36.6 C (97.8 F) 09/13/2020 7:50 AM FIRE ALARM MECHANIC Respiratory Rate 16 09/13/2020 7:50 AM FIRE ALARM MECHANIC Oxygen Saturation 97% 09/13/2020 7:50 AM FIRE ALARM MECHANIC Inhaled Oxygen Concentration - - Weight 80.8 kg (178 lb 3.2 oz) 04/09/2023 11:30 AM CDT Height 160 cm (5' 3 ) 04/09/2023 11:30 AM CDT Body Mass Index 31.57 04/09/2023 11:30 AM CDT Plan of Treatment Health Maintenance Due Date Last Done Comments Colon Cancer Screening-Colonoscopy 1955 Depression Screening 1955 Hepatitis C Screening 1955 Osteoporosis Screening-Bone Density Scan 1955 DTaP/Tdap/Td Vaccine (1 - Tdap) 1966 Hepatitis B Screening 1973 Pneumococcal vaccine 65+ (1 of 2 - PCV) 1974 Zoster Vaccine (1 of 2) 1974 Breast Cancer Screening-Mammogram 10/07/2019 019 Well Visit 65+ 2020 Fall Risk Assessment 09/12/2021 09/12/2020 Influenza Vaccine (#1) [id number] [place] [address] MEDICARE [facility] MEDICARE MEDICARE Advance Directives For more information, please contact: [phone] * Full Code (Latest Code Status on File) Date Activated Date Inactivated Comments 09/12/2020 3:13 PM 09/13/2020 3:52 PM Care Teams Commercial Diver Relationship Specialty Start Date End Date Elizabet Campos MD [address] [place] [address] PCP - General 04/27/18 Hayley Walsh MD [address] [place] [address] Referring Physician Internal Medicine 04/28/18
--- OUTSIDE RECORDS SUMMARY | 2024-10-25 16:34 | XMS_ITS ---
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 Past Treatment and Therapy Plans No past plan information found. Radiation Treatments * Course C2 07/15/2019 - 07/15/2019 Treatment Period Energy Fraction Dose Fractions Total Dose Plans Planned Thyroid_2 07/15/2019 - 07/15/2019 100 Reference Points Delivered Thyroid_2 07/15/2019 - 07/15/2019 100 * Course C1 05/14/2018 - 05/14/2018 Treatment Period Energy Fraction Dose Fractions Total Dose Plans Planned Thyroid 1 05/14/2018 - 05/14/2018 30 Reference Points Delivered Thyroid 1 05/14/2018 - 05/14/2018 30
--- OUTSIDE RECORDS SUMMARY | 2024-10-25 16:34 | XMS_ITS | Encounter Summary ---
Author Organization [facility] Address [address] [place] [address] Care Team Providers Care Outside Sales Representative Name Role Phone Elizabet Campos MD Primary Care Provider + Encounter Details Date Type Department Care Team (Late Contact Info) Description 03/16/2018 Chart Note [facility] Radiation Therapy [address] [place] [address] [place] [address] [place] [address] Social History Tobacco Use Types [...] Department Care Team (Late Contact Info) Description 10/16/2025 10:15 AM CDT Office Visit [facility] Oncology and Hematology - [place] [address] [facility] [address] [place] [address] Hai Marroquin MD [address] [facility] [address] [place] [address] documented as of this encounter Visit Diagnoses Not on filedocumented in this encounter Care Teams Outside Sales Representative Relationship Specialty Start Date End Date Elizabet Campos MD [address] [place] [address] PCP - General Internal Medicine 02/01/18 documented as of this encounter
--- OUTSIDE RECORDS SUMMARY | 2024-10-25 16:34 | XMS_ITS | Clinical Summary ---
Author Organization [facility] Address [address] [place] [address] Care Team Providers Care Hospitality Ambassador Name Role Phone Elizabet Campos MD Primary [...] mg by mouth post-proc every 8 hours. 1 Active cholecalciferol , vitamin D3, 1,000 unit Take 1,000 Units by mouth. Active ibuprofen (MOTRIN) 200 mg tablet Take 200 mg by mouth. Active umpzp-7-BHM-EPA -fish oil 1,000 mg Capsule Take 1 [...] Encounters Date Type Department Care Team Description 10/12/2024 10:15 AM CDT Office Visit [facility] Oncology and Hematology - [place] [address] [place] [address] Hai Marroquin MD Papillary thyroid carcinoma (CMS/HCC) (Primary Dx) 10/10/2024 External Device Data STL ABSTRACTION Provider, Abstract 10/05/[address] [facility] Oncology and Hematology - [place] [address] [place] [address] Hai Marroquin MD 10/04/[address] [facility] Oncology and Hematology - [place] [address] [place] [address] Hai Marroquin MD 10/03/[address] [facility] Oncology and Hematology - [place] [address] [place] [address] Hai Marroquin MD 09/20/2024 External Device Data STL ABSTRACTION Provider, Abstract 08/24/2024 External Device Data STL ABSTRACTION Provider, [...] Sign Reading Time Taken Comments Blood Pressure 139/82 10/12/2024 10:14 AM CDT Pulse 82 10/12/2024 10:10 AM CDT Temperature 36.1 C (97 F) 10/12/2024 10:10 AM CDT Respiratory Rate 15 10/12/2024 10:10 AM CDT Oxygen Saturation 97% 10/12/2024 10:10 AM CDT Inhaled Oxygen Concentration - - Weight 75.8 kg (167 lb 3.2 oz) 10/12/2024 10:10 AM CDT Height 160 cm (5' 3 ) 04/15/2022 10:36 AM CDT Body Mass Index 29.62 04/15/2022 10:36 AM CDT Plan of Treatment Upcoming Encounters Date Type Department Care Team (Late st Contact Info) Description 10/16/2025 10:15 AM CDT Office Visit [facility] Oncology and Hematology - [place] [address] [facility] [address] [place] [address] Hai Marroquin MD [address] [facility] [address] [place] [address] Health Maintenance Due Date Last Done Comments Pre-Diabetes and Diabetes Screening 1955 DTAP/TDAP/TD VACCINES (1 - Tdap) 1974 PNEUMOCOCCAL VACCINE 50+ YEA RS (1 of 2 - PCV) 1974 Traditional Medicare (ACO) A nnual Wellness Visit 1974 COLORECTAL SCREENING 2000 Colorectal Cancer Screening 2000 FIT-DNA Q 3 years 2000 FIT/FOBT Q 1 year 2000 Flex Sig/CT Colonography Q 5 years 2000 ZOSTER VACCINE (1 of 2) 2005 RSV VACCINE (60+ or ) (1 - Risk 60-74 years 1-dose series) 2015 BREAST CANCER SCREENING 01/03/2023 01/04/20 22, 01/03/2022, 10/17/2020, Additional history exists INFLUENZA VACCINE (#1) 2024 OSTEOPOROSIS SCREENING Completed 06/02/2023, 2020 Procedures Procedure Name Priority Date/Time Associated Diagnosis Comments COMPREHENSIVE METABOLIC PANEL Routine 10/03/2024 2:47 PM AIRBORNE OPERATIONS MANAGER THYROGLOBULIN ANTIBODY Routine 11:37 AM AIRBORNE OPERATIONS MANAGER COMPREHENSIVE METABOLIC PANEL Routine 10/03/2024 10:47 AM AIRBORNE OPERATIONS MANAGER HCHG US HEAD/NECK SOFT TISSUE Routine 10/03/2024 10:31 AM AIRBORNE OPERATIONS MANAGER MAMMO SCREENING BILAT Routine 10/06/2018 from Last 3 Months or Most Recently Relevant to Health Maintenance Results * COMPREHENSIVE METABOLIC PANEL (10/03/2024 2:47 PM AIRBORNE OPERATIONS MANAGER) Only the most recent of2 resultswithin the time period is included. Blood Hai Marroquin MD CHEMISTRY ORDERABLES Final Resu lt * THYROGLOBULIN ANTIBODY (10/03/2024 11:37 AM AIRBORNE OPERATIONS MANAGER) Blood Hai Marroquin MD CHEMISTRY ORDERABLES Final Resu lt * HC US HEAD/NECK SOFT TISSUE (10/03/2024 10:31 AM AIRBORNE OPERATIONS MANAGER) Hai Marroquin MD [facility] ULTR[facility]OUND Final Result * MAMMO SCREENING BILAT (10/06/2018) Anatomical Region Laterality Modality Breast Bilateral Mammography Abstract Provider MAMMO ORDERABLES Final Result from Last 3 Months or Most Recently Relevant to Health Maintenance Insurance MEDICARE PART A AND B [employer] Amina Care Teams Hospitality Ambassador Relationship Specialty Start Date End Date Elizabet Campos MD [address] [place] [id number] PCP - General Internal Medicine 02/01/18
--- OUTSIDE RECORDS SUMMARY | 2024-10-25 16:34 | XMS_ITS | Referral Summary ---
Author Organization [facility] Address [address] [place] [address] Care Team Providers Care Media Planner Name Role Phone Elizabet Campos MD Primary Care Provider [phone] Hayley Walsh MD Unavailable [phone] Allergies Active Allergy Reactions Criticality Noted Date Comments Amoxicillin-Pot Clavulanate Hives Medium 05/29/20 20 Iodinated Contrast Media Hives Medium 08/30/2020 Levofloxacin Hives Medium 03/08/2018 Levothyroxine Hives Medium 07/14/2018 Sulfa (Sulfonamide Antibiotics) Hives Medium Medications omega 6-slk-cmg-fish oil 1,000 mg (120 mg-180 mg) capsuleIndicati [...] (six) hours as needed for pain Active [place] Thyroid 60 mg tabletIndicatio ns:hypothyroidi sm Take [...] (08/16/2020): Added automatically from request for surgery [id number] Metastatic papillary carcinoma 08/16/2020 Overview (08/16/2020): Added automatically from request for surgery [id number] Thyroid cancer 04/28/2018 Cancer Staging:Pathologic stage from [...] on file Legal Sex Female 4:01 AM MANAGER MOBILE Gender Identity Not on file Sexual Orientation Not on file Last Filed Vital Signs Vital Sign Reading Time Taken Comments Blood Pressure 120/59 09/13/2020 7:50 AM MANAGER MOBILE Pulse 60 09/13/2020 7:50 AM MANAGER MOBILE Temperature 36.6 C (97.8 F) 09/13/2020 7:50 AM MANAGER MOBILE Respiratory Rate 16 09/13/2020 7:50 AM MANAGER MOBILE Oxygen Saturation 97% 09/13/2020 7:50 AM MANAGER MOBILE Inhaled Oxygen Concentration - - Weight 80.8 kg (178 lb 3.2 oz) 04/09/2023 11:30 AM CDT Height 160 cm (5' 3 ) 04/09/2023 11:30 AM CDT Body Mass Index 31.57 04/09/2023 11:30 AM CDT Plan of Treatment Not on file Insurance [id number] [place] [address] CLAIMS MEDICARE [facility] [place] FOR LIFE [facility] CLAIMS [facility] MEDICARE [facility] Address: [address] [address] MEDICARE [facility] Address: [address] [address] Advance Directives For more information, please contact: [phone] * Full Code (Latest Code Status on File) Date Activated Date Inactivated Comments 09/12/2020 3:13 PM 09/13/2020 3:52 PM Care Teams Media Planner Relationship Specialty Start Date End Date Elizabet Campos MD [address] [place], [place] [id number] PCP - General 04/27/18 Hayley Walsh MD [address] [place] [address] Referring Physician Internal Medicine 04/28/18
--- OUTSIDE RECORDS SUMMARY | 2024-10-25 16:34 | XMS_ITS | Encounter Summary ---
Author Organization [facility] Address [address] [place] [address] Care Team Providers Care Propellant Charge Zone Assembler Name Role Phone Elizabet Campos MD Primary Care Provider [phone] Encounter Details Date Type Department Care Team (Late st Contact Info) Description 10/17/2017 Abstract [facility] CONVERSION [address] [place] [address] , Generic Conversion, Social History Tobacco Use [...] on filedocumented in this encounter Care Teams Propellant Charge Zone Assembler Relationship Specialty Start Date End Date Elizabet Campos MD [address] [place] [address] PCP - General INTERNAL MEDICINE 12/14/17 documented as of this encounter
--- OUTSIDE RECORDS SUMMARY | 2024-10-25 16:34 | XMS_ITS | Encounter Summary ---
Author Organization [facility] Address [address] [place] [address] Care Team Providers Care Inventory Representative Name Role Phone Elizabet Campos MD Primary Care Provider [phone] Isac Nolasco MD Unavailable [phone] Hayley Walsh MD Unavailable [phone] Encounter Details Date Type Department Care Team (Late st Contact Info) Description 11/20/2020 Telephone [facility] [address] [place] [address] Sugey Shah, RT Social History [...] on file Legal Sex Female 4:01 AM PAINTER HELPER Gender Identity Not on file Sexual Orientation Not on file documented as of this encounter Plan of Treatment Not on file documented as of this encounter Visit Diagnoses Not on filedocumented in this encounter Care Teams Inventory Representative Relationship Specialty Start Date End Date Elizabet Campos MD [address] [place] [address] PCP - General 04/27/18 Isac Nolasco MD [address] [address] Radiation Oncologist Radiation Oncology 04/27/1808/04/ 4 Hayley Walsh MD [address] [place] [address] Referring Physician Internal Medicine 04/28/18 documented as of this encounter
--- OUTSIDE RECORDS SUMMARY | 2024-10-25 16:34 | XMS_ITS | Encounter Summary ---
Author Organization [facility] Address [address] [place] [address] Care Team Providers Care Crystal Evaluator Name Role Phone Elizabet Campos MD Primary Care Provider + Encounter Details Date Type Department Care Team (Late Contact Info) Description 12/04/2020 Chart Note [facility] Radiation Therapy [address] [place] [address] [place] [address] [place] [address] Social History Tobacco Use Types [...] Description 10/16/2025 10:15 AM CDT Office Visit [facility] Oncology and Hematology - [place] [address] [facility] [address] [place] [address] Hai Marroquin MD [address] [facility] [address] [place] [address] documented as of this encounter Visit Diagnoses Not on filedocumented in this encounter Care Teams Crystal Evaluator Relationship Specialty Start Date End Date Elizabet Campos MD [address] [place] [address] PCP - General Internal Medicine 02/01/18 documented as of this encounter
--- OUTSIDE RECORDS SUMMARY | 2024-10-25 16:34 | XMS_ITS | Data Portability ---
Author Organization [facility], Main Office Address [address] [place] [address] Assessment No assessment recorded. Plan of Treatment Reminders Order Date Submit Date Provider Last Modified By Organization Details Last Modified Time Details Appointments None recorded. Lab HbA1c (hemoglobin A1c), blood 2022 023 [id number] Not available 3 12:59:26 insulin Ab, serum 2022 023 [email or web address] Not available 3 12:59:25 TSH + free T4, serum 2022 023 Not available 3 12:59:26 T3, free, serum or plasma 2022 023 [email or web address] Not available 3 12:59:26 thyroglobul in + thyroglobul in Ab, serum 2022 023 [email or web address] Not available 3 12:59:26 CMP, serum or plasma 2022 023 [email or web address] Not available 3 12:59:25 vitamin D, 25-hydroxy, total, serum 2022 023 [email or web address] Not available 3 12:59:25 Referral endocrinolo gy referral 2022 023 [email or web address] Shakila Rodriguez MD, [address],, [facility], [place], [address], 3 09:25:33 Procedures None recorded. Surgeries None recorded. Imaging bone density 2022 023 [facility] (Imaging), [address] [place] [address] [address], [place], [address], 3 18:11:41 Medication Orders Tirosint 100 mcg capsule 2022 023 [facility], [address] [place], [address], 09:18:40 Patient TargetsNo targets recorded. Patient InstructionsNo [...] e vinnie cteri stics deter mined by [facility]. It has not been clear ed [...] BN - [facility] [place] [address] [facility] , [place] [address] Lab Direc tor: Olga pham MD, Phone : [phone] Not Available [facility] (Lab) [address] [place], [address], 06/19/2021 10:11:58 05/31/2006/03/2021 THYRO GLOBU MILAGRO ANTIB STEVE thyroglobuli n antibody <1.0 IU/mL 0.0-0. 9 Thyro globu milagro Antib steve measu red by Margot Ballesteros er Metho dolog y Perfo rmed at: - [facility] [address] [facility], [place] [address] Lab Direc tor: Harsha amado PhD, Phone : [phone] Not Available [facility] (Lab) [address] [place], [address], 06/03/2021 16:10:32 05/31/20 21 05/31/2021 VITAM IN D 25-HY DROXY vd25oh 42.4 NG/mL 30-100 Vitam in D Statu s: Defic ient: <20 ng/mL Insuf ficie nt: 20-29 ng/mL Suffi cient : 30-10 0 ng/mL Not Available [facility] (Lab) [address] [place], [address], 05/31/2021 19:41:25 05/31/20 21 05/31/2021 TSH thyroid-stim ulating hormone <0.015 uIU/m L 0.465- 4.680 low Not Available [facility] (Lab) [address] [place], [address], 05/31/2021 19:21:09 05/31/20 21 05/31/2021 T3 FREE free T3 3.8 pg/mL 2.77-5 .27 Not Available [facility] (Lab) [address] [place], [address], 05/31/2021 19:06:04 05/31/20 21 05/31/2021 T4 FREE free T4 2.07 NG/dL 0.78-2 .19 Not Available [facility] (Lab) [address] [place], [address], 05/31/2021 19:05:59 05/31/20 21 05/31/2021 COMPR EHENS TERI METAB OLIC PANEL GFR >60 Refer ence Range : Gilman ge GFR Healt hy Adult : >60 [...] lator can be locat ed on the [facility] websi te: https ://renetta velasco.campos adorno.o rg/pr ofess ional s/kdo qi/gf r_cal culat or Not Available [facility] (Lab) [address] [place], [address], 05/31/2021 18:58:33 05/31/20 21 05/31/2021 COMPR EHENS TERI METAB OLIC PANEL alkaline phosphatase 130 U/L 38-[address] [facility] (Lab) [address] [place], [address], 05/31/2021 18:58:33 05/31/20 21 05/31/2021 COMPR EHENS TERI METAB OLIC PANEL alanine aminotransfe rase 17 U/L 0-35 Not Available [facility] (Lab) [address] [place], [address], 05/31/2021 18:58:33 05/31/20 21 05/31/2021 COMPR EHENS TERI METAB OLIC PANEL aspartate aminotransfe rase 25 U/L 15-37 Not Available [facility] (Lab) [address] [place], [address], 05/31/2021 18:58:33 05/31/20 21 05/31/2021 COMPR EHENS TERI METAB OLIC PANEL bilirubin, total 0.80 mg/dL 0.20-1 .30 Not Available [facility] (Lab) [address] [place], [address], 05/31/2021 18:58:33 05/31/20 21 05/31/2021 COMPR EHENS TERI METAB OLIC PANEL calcium 10.2 mg/dL 8.4-10 .2 Not Available [facility] (Lab) [address] [place], [address], 05/31/2021 18:58:33 05/31/20 21 05/31/2021 COMPR EHENS TERI METAB OLIC PANEL total protein 7.6 g/dL 6.3-8. 2 Not Available [facility] (Lab) [address] [place], [address], 05/31/2021 18:58:33 05/31/20 21 05/31/2021 COMPR EHENS TERI METAB OLIC PANEL albumin 4.5 g/dL 3.0-4. 4 high Not Available [facility] (Lab) [address] [place], [address], 05/31/2021 18:58:33 05/31/20 21 05/31/2021 COMPR EHENS TERI METAB OLIC PANEL globulin 3.1 g/dL 2.6-4. 2 Not Available [facility] (Lab) [address] [place], [address], 05/31/2021 18:58:33 05/31/20 21 05/31/2021 COMPR EHENS TERI METAB OLIC PANEL A/G ratio 1.5 ratio 1.0-2. 0 Not Available [facility] (Lab) [address] [place], [address], 05/31/2021 18:58:33 05/31/20 21 05/31/2021 COMPR EHENS TERI METAB OLIC PANEL sodium 140 mmol/ L 137-14 5 Not Available [facility] (Lab) [address] [place], [address], 05/31/2021 18:58:33 05/31/20 21 05/31/2021 COMPR EHENS TERI METAB OLIC PANEL potassium 4.4 mmol/ L 3.5-5. 1 Not Available [facility] (Lab) [address] [place], [address], 05/31/2021 18:58:33 05/31/20 21 05/31/2021 COMPR EHENS TERI METAB OLIC PANEL chloride 105 mmol/ L 98-107 Not Available [facility] (Lab) [address] [place], [address], 05/31/2021 18:58:33 05/31/20 21 05/31/2021 COMPR EHENS TERI METAB OLIC PANEL carbon dioxide 25 mmol/ L 22-30 Not Available [facility] (Lab) [address] [place], [address], 05/31/2021 18:58:33 05/31/20 21 05/31/2021 COMPR EHENS TERI METAB OLIC PANEL agap 14.4 mmol/ L 14-22 Not Available [facility] (Lab) [address] [place], [address], 05/31/2021 18:58:33 05/31/20 21 05/31/2021 COMPR EHENS TERI METAB OLIC PANEL glucose 95 mg/dL 70-99 Not Available [facility] (Lab) [address] [place], [address], 05/31/2021 18:58:33 05/31/20 21 05/31/2021 COMPR EHENS TERI METAB OLIC PANEL BUN 17 mg/dL 8-19 Not Available [facility] (Lab) [address] [place], [address], 05/31/2021 18:58:33 05/31/20 21 05/31/2021 COMPR EHENS TERI METAB OLIC PANEL creatinine 0.67 mg/dL 0.66-1 .25 Not Available [facility] (Lab) [address] [place], [address], 05/31/2021 18:58:33 09/25/19 22 10/04/2021 THYRO GLOBU MILAGRO BY LCMS thyroglobuli n by lcms <0.2 NG/mL 1.5-38 .5 low This test was devel oped and its perfo rmanc e vinnie cteri stics deter mined by [facility]. It has not been clear ed [...] at: BN - [facility] [place] [address] [facility] , [place] [address] Lab Direc tor: Olga pham MD, Phone : [phone] Not Available [facility] (Lab) [address] [place], [address], 10/04/2021 20:08:47 09/25/19 22 09/28/2021 THYRO GLOBU MILAGRO ANTIB STEVE thyroglobuli n antibody <1.0 IU/mL 0.0-0. 9 Thyro globu milagro Antib steve measu red by Beckm an Coult er Metho dolog y Perfo rmed at: CB - [facility] [address] [facility], [place] [address] Lab Direc tor: Harsha amado PhD, Phone : [phone] Not Available [facility] (Lab) [address] [place], [address], 09/28/2021 15:10:03 09/25/19 22 09/25/2021 TSH thyroid-stim ulating hormone <0.015 uIU/m L 0.465- 4.680 low Not Available [facility] (Lab) [address] [place], [address], 09/25/2021 14:12:52 09/25/19 22 09/25/2021 VITAM IN D 25-HY DROXY [id number] 41.6 NG/mL 30-100 Vitam in D Statu s: Defic ient: <20 ng/mL Insuf ficie nt: 20-29 ng/mL Suffi cient : 30-10 0 ng/mL Not Available [facility] (Lab) [address] [place], [address], 09/25/2021 13:50:13 09/25/19 22 09/25/2021 T3 FREE free T3 4.4 pg/mL 2.77-5 .27 Not Available [facility] (Lab) [address] [place], [address], 09/25/2021 13:47:14 09/25/19 22 09/25/2021 T4 FREE free T4 1.73 NG/dL 0.78-2 .19 Not Available [facility] (Lab) [address] [place], [address], 09/25/2021 13:47:13 09/25/19 22 09/25/2021 PARAT HY.HO RM(PT H)INT ACT-W /O CA intact parathyroid hormone 39.8 pg/mL 24.0-7 8.0 Not Available [facility] (Lab) [address] [place], [address], 09/25/2021 13:45:35 09/25/19 22 09/25/2021 COMPR EHENS TERI METAB OLIC PANEL sodium 141 mmol/ L 137-14 5 Not Available [facility] (Lab) [address] [place], [address], 09/25/2021 13:30:01 09/25/19 22 09/25/2021 COMPR EHENS TERI METAB OLIC PANEL potassium 4.5 mmol/ L 3.5-5. 1 Not Available [facility] (Lab) [address] [place], [address], 09/25/2021 13:30:01 09/25/19 22 09/25/2021 COMPR EHENS TERI METAB OLIC PANEL chloride 107 mmol/ L 98-107 Not Available [facility] (Lab) [address] [place], [address], 09/25/2021 13:30:01 09/25/19 22 09/25/2021 COMPR EHENS TREI METAB OLIC PANEL carbon dioxide 24 mmol/ L 22-30 Not Available [facility] (Lab) [address] [place], [address], 09/25/2021 13:30:01 09/25/19 22 09/25/2021 COMPR EHENS TERI METAB OLIC PANEL agap 14.5 mmol/ L 14-22 Not Available [facility] (Lab) [address] [place], [address], 09/25/2021 13:30:09/25/19 22 09/25/2021 COMPR EHENS TERI METAB OLIC PANEL glucose 97 mg/dL 70-99 Not Available [facility] (Lab) [address] [place], [address], 09/25/2021 13:30:01 09/25/19 22 09/25/2021 COMPR EHENS TERI METAB OLIC PANEL BUN 17 mg/dL 8-19 Not Available [facility] (Lab) [address] [place], [address], 09/25/2021 13:30:01 09/25/19 22 09/25/2021 COMPR EHENS TERI METAB OLIC PANEL creatinine 0.63 mg/dL 0.66-1 .25 low Not Available [facility] (Lab) [address] [place], [address], 09/25/2021 13:30:01 09/25/19 22 09/25/2021 COMPR EHENS TERI METAB OLIC PANEL GFR >60 Refer ence Range : Gilman ge GFR Healt hy Adult : >60 [...] or ethni c subgr oups, such as Hisnh nics. Outsi de the valid ated lanie [...] s/kdo qi/gf r_cal culat or Not Available [facility] (Lab) [address] [place], [address], 09/25/2021 13:30:01 09/25/19 22 09/25/2021 COMPR EHENS TERI METAB OLIC PANEL alkaline phosphatase 111 U/L 38-[address] [facility] (Lab) [address] [place], [address], 09/25/2021 13:30:01 09/25/19 22 09/25/2021 COMPR EHENS TERI METAB OLIC PANEL alanine aminotransfe rase 20 U/L 0-35 Not Available [facility] (Lab) [address] [place], [address], 09/25/2021 13:30:01 09/25/19 22 09/25/2021 COMPR EHENS TERI METAB OLIC PANEL aspartate aminotransfe rase 28 U/L 15-37 Not Available [facility] (Lab) [address] [place], [address], 09/25/2021 13:30:01 09/25/19 22 09/25/2021 COMPR EHENS TERI METAB OLIC PANEL bilirubin, total 0.90 mg/dL 0.20-1 .30 Not Available [facility] (Lab) [address] [place], [address], 09/25/2021 13:30:01 09/25/19 22 09/25/2021 COMPR EHENS TERI METAB OLIC PANEL calcium 9.4 mg/dL 8.4-10 .2 Not Available [facility] (Lab) [address] [place], [address], 09/25/2021 13:30:01 09/25/19 22 09/25/2021 COMPR EHENS TERI METAB OLIC PANEL total protein 7.2 g/dL 6.3-8. 2 Not Available [facility] (Lab) [address] [place], [address], 09/25/2021 13:30:01 09/25/19 22 09/25/2021 COMPR EHENS TERI METAB OLIC PANEL albumin 4.3 g/dL 3.0-4. 4 Not Available [facility] (Lab) [address] [place], [address], 09/25/2021 13:30:01 09/25/19 22 09/25/2021 COMPR EHENS TERI METAB OLIC PANEL globulin 2.9 g/dL 2.6-4. 2 Not Available [facility] (Lab) [address] [place], [address], 09/25/2021 13:30:01 09/25/19 22 09/25/2021 COMPR EHENS TERI METAB OLIC PANEL A/G ratio 1.5 ratio 1.0-2. 0 Not Available [facility] (Lab) [address] [place], [address], 09/25/2021 13:30:01 03/17/20 22 03/24/2022 TESTO STERO NE, FREE+ TOTAL LC/MS testosterone , total, lc/MS 7.2 NG/dL 7.0-40 .0 Not Available [facility] (Lab) [address] [place], [address], 03/24/2022 18:08:23 03/17/20 22 03/24/2022 TESTO STERO NE, FREE+ TOTAL LC/MS testosterone , free 0.11 NG/dL 0.10-0 .85 Not Available [facility] (Lab) [address] [place], [address], 03/24/2022 18:08:23 03/17/20 22 03/24/2022 TESTO STERO NE, FREE+ TOTAL LC/MS % free testosterone 1.56 % 0.50-2 .80 Perfo rmed at: - [facility] [place] [address] [facility] [place] [address] Lab Direc tor: Olga pham MD, Phone : [phone] Not Available [facility] (Lab) [address] [place], [address], 03/24/2022 18:08:23 03/17/20 22 03/18/2022 THYRO GLOBU MILAGRO ANTIB STEVE thyroglobuli n antibody <1.0 IU/mL 0.0-0. 9 Thyro globu milagro Antib steve measu red by Margot Ballesteros er Metho dolog y Perfo rmed at: [facility] [address] [place] [address] Lab Direc tor: Harsha amado PhD, Phone : [phone] Not Available [facility] (Lab) [address] [place], [address], 03/18/2022 17:08:53 03/17/20 22 03/18/2022 DHEA- SULFA TE DHEA-sulfate 8.8 ug/dL 20.4-1 86.6 low Perfo rmed at: [facility] [address] [place] [address] Lab Direc tor: Harsha amado PhD, Phone : [phone] Not Available [facility] (Lab) [address] [place], [address], 03/18/2022 08:15:03 03/17/2003/17/2022 TSH thyroid-stim ulating hormone <0.015 uIU/m L 0.465- 4.680 low Not Available [facility] (Lab) [address] [place], [address], 03/17/2022 14:08:14 03/17/20 22 03/17/2022 T4 FREE free T4 2.14 NG/dL 0.78-2 .19 Not Available [facility] (Lab) [address] [place], [address], 03/17/2022 13:56:20 03/17/20 22 03/17/2022 VITAM IN D 25-HY DROXY vd25oh 55.4 NG/mL 30-100 Vitam in D Statu s: Defic ient: <20 ng/mL Insuf ficie nt: 20-29 ng/mL Suffi cient : 30-10 0 ng/mL Not Available [facility] (Lab) [address] [place], [address], 03/17/2022 13:56:15 03/17/20 22 03/17/2022 IRON/ TIBC PANEL total iron binding capacity 390 mcg/d L 265-47 5 Not Available [facility] (Lab) [address] [place], [address], 03/17/2022 13:42:35 03/17/20 22 03/17/2022 IRON/ TIBC PANEL % transferrin saturation 22 % 20-55 Not Available [facility] (Lab) [address] [place], [address], 03/17/2022 13:42:35 03/17/20 22 03/17/2022 IRON/ TIBC PANEL unsaturated iron bind capacity 304 mcg/d L 126-38 2 Not Available [facility] (Lab) [address] [place], [address], 03/17/2022 13:42:35 03/17/20 22 03/17/2022 IRON/ TIBC PANEL iron 86 mcg/d L 42-175 Not Available [facility] (Lab) [address] [place], [address], 03/17/2022 13:42:35 03/17/20 22 03/17/2022 COMPR EHENS TERI METAB OLIC PANEL sodium 138 mmol/ L 137-14 5 Not Available [facility] (Lab) [address] [place], [address], 03/17/2022 13:36:19 03/17/20 22 03/17/2022 COMPR EHENS TERI METAB OLIC PANEL potassium 4.5 mmol/ L 3.5-5. 1 Not Available [facility] (Lab) [address] [facility] [place], [address], 03/17/2022 13:36:19 03/17/20 22 03/17/2022 COMPR EHENS TERI METAB OLIC PANEL chloride 106 mmol/ L 98-107 Not Available [facility] (Lab) [address] [place], [address], 03/17/2022 13:36:19 03/17/20 22 03/17/2022 COMPR EHENS TERI METAB OLIC PANEL carbon dioxide 24 mmol/ L 22-30 Not Available [facility] (Lab) [address] [place], [address], 03/17/2022 13:36:19 03/17/20 22 03/17/2022 COMPR EHENS TERI METAB OLIC PANEL anion gap 12.5 mmol/ L 14-22 low Not Available [facility] (Lab) [address] [place], [address], 03/17/2022 13:36:19 03/17/20 22 03/17/2022 COMPR EHENS TERI METAB OLIC PANEL glucose 102 mg/dL 70-99 high Not Available [facility] (Lab) [address] [place], [address], 03/17/2022 13:36:19 03/17/20 22 03/17/2022 COMPR EHENS TERI METAB OLIC PANEL BUN 17 mg/dL 8-19 Not Available [facility] (Lab) [address] [place], [address], 03/17/2022 13:36:19 03/17/20 22 03/17/2022 COMPR EHENS TERI METAB OLIC PANEL creatinine 0.70 mg/dL 0.66-1 .25 Not Available [facility] (Lab) [address] [place], [address], 03/17/2022 13:36:19 03/17/20 22 03/17/2022 COMPR EHENS TERI METAB OLIC PANEL GFR >60 Refer ence Range : Gilman ge GFR Healt hy Adult : >60 mL/mi n/1.7 3 m2 Chron ic Kidne y Disea se: 15-60 mL/mi n/1.7 3 m2 Kidne y Failu re: <15/m L/min /1.73 m2 www.n iddk. [facility].g ov The MDRD study equat ion has not been valid ated in child miki <18 years of age; pregn ant women ; the elder ly >85 years of age; or in some racia l or ethni c subgr oups, such as Hisnh nics. Outsi de the valid ated lanie [...] s/kdo qi/gf r_cal culat or Not Available [facility] (Lab) [address] [place], [address], 03/17/2022 13:36:19 03/17/20 22 03/17/2022 COMPR EHENS TERI METAB OLIC PANEL alkaline phosphatase 130 U/L 38-[address] [facility] (Lab) [address] [place], [address], 03/17/2022 13:36:19 03/17/20 22 03/17/2022 COMPR EHENS TERI METAB OLIC PANEL alanine aminotransfe rase 17 U/L 0-35 Not Available [facility] (Lab) [address] [place], [address], 03/17/2022 13:36:19 03/17/20 22 03/17/2022 COMPR EHENS TERI METAB OLIC PANEL aspartate aminotransfe rase 22 U/L 15-37 Not Available [facility] (Lab) [address] [place], [address], 03/17/2022 13:36:19 03/17/20 22 03/17/2022 COMPR EHENS TERI METAB OLIC PANEL bilirubin, total 0.70 mg/dL 0.20-1 .30 Not Available [facility] (Lab) [address] [place], [address], 03/17/2022 13:36:19 03/17/20 22 03/17/2022 COMPR EHENS TERI METAB OLIC PANEL calcium 9.9 mg/dL 8.4-10 .2 Not Available [facility] (Lab) [address] [place], [address], 03/17/2022 13:36:19 03/17/20 22 03/17/2022 COMPR EHENS TERI METAB OLIC PANEL total protein 7.2 g/dL 6.3-8. 2 Not Available [facility] (Lab) [address] [place], [address], 03/17/2022 13:36:19 03/17/20 22 03/17/2022 COMPR EHENS TERI METAB OLIC PANEL albumin 4.2 g/dL 3.0-4. 4 Not Available [facility] (Lab) [address] [place], [address], 03/17/2022 13:36:19 03/17/20 22 03/17/2022 COMPR EHENS TERI METAB OLIC PANEL globulin 3.0 g/dL 2.6-4. 2 Not Available [facility] (Lab) [address] [place], [address], 03/17/2022 13:36:19 03/17/20 22 03/17/2022 COMPR EHENS TERI METAB OLIC PANEL A/G ratio 1.4 ratio 1.0-2. 0 Not Available [facility] (Lab) [address] [place], [address], 03/17/2022 13:36:19 05/19/20 22 05/19/2022 TSH thyroid-stim ulating hormone <0.015 uIU/m L 0.465- 4.680 low Not Available [facility] (Lab) [address] [place], [address], 05/19/2022 13:47:00 05/19/20 22 05/19/2022 T4 FREE free T4 1.66 NG/dL 0.78-2 .19 Not Available [facility] (Lab) [address] [place], [address], 05/19/2022 13:31:56 06/05/20 22 06/13/2022 THYRO GLOBU [...] [address] , [place] [address] Lab Direc tor: Olga pham MD, Phone : [phone] Not Available [facility] (Lab) [address] [place], [address], 06/13/2022 18:08:52 06/05/20 22 06/05/2022 FOLAT E, SERUM /PLAS MA folate 8.70 NG/mL 2.76-2 0.0 Not Available [facility] (Lab) [address] [place], [address], 06/05/2022 14:32:54 06/05/20 22 06/05/2022 VITAM IN B12 (SONAL CHATA ) vb12 350 pg/mL 239-93 1 Not Available [facility] (Lab) [address] [place], [address], 06/05/2022 14:32:50 06/05/20 22 06/05/2022 TSH thyroid-stim ulating hormone <0.015 uIU/m L 0.465- 4.680 low Not Available [facility] (Lab) [address] [place], [address], 06/05/2022 14:13:55 06/05/20 22 06/05/2022 T4 FREE free T4 1.66 NG/dL 0.78-2 .19 Not Available [facility] (Lab) [address] [place], [address], 06/05/2022 13:38:55 06/05/20 22 06/05/2022 COMPR EHENS TERI METAB OLIC PANEL sodium 140 mmol/ L 137-14 5 Not Available [facility] (Lab) [address] [facility] [place], [address], 06/05/2022 13:32:19 06/05/20 22 06/05/2022 COMPR EHENS TERI METAB OLIC PANEL potassium 4.4 mmol/ L 3.5-5. 1 Not Available [facility] (Lab) [address] [place], [address], 06/05/2022 13:32:19 06/05/20 22 06/05/2022 COMPR EHENS TERI METAB OLIC PANEL chloride 107 mmol/ L 98-107 Not Available [facility] (Lab) [address] [facility] [place], [address], 06/05/2022 13:32:19 06/05/20 22 06/05/2022 COMPR EHENS TERI METAB OLIC PANEL carbon dioxide 23 mmol/ L 22-30 Not Available [facility] (Lab) [address] [facility] [place], [address], 06/05/2022 13:32:19 06/05/20 22 06/05/2022 COMPR EHENS TERI METAB OLIC PANEL anion gap 14.4 mmol/ L 14-22 Not Available [facility] (Lab) [address] [facility] [place], [address], 06/05/2022 13:32:19 06/05/20 22 06/05/2022 COMPR EHENS TERI METAB OLIC PANEL glucose 98 mg/dL 70-99 Not Available [facility] (Lab) [address] [place], [address], 06/05/2022 13:32:19 06/05/20 22 06/05/2022 COMPR EHENS TERI METAB OLIC PANEL BUN 15 mg/dL 8-19 Not Available [facility] (Lab) [address] [place], [address], 06/05/2022 13:32:19 11/03/06/05/2022 COMPR EHENS TERI METAB OLIC PANEL creatinine 0.68 mg/dL 0.66-1 .25 Not Available [facility] (Lab) [address] [place], [address], 06/05/2022 13:32:19 06/05/20 22 06/05/2022 COMPR EHENS TERI METAB OLIC PANEL GFR >60 Refer ence Range : Gilman ge GFR Healt hy Adult : >60 [...] or ethni c subgr oups, such as Hisnh nics. Outsi de the valid ated lanie [...] calcu lator is avail able on the [facility] websi te: https ://renetta w.kid kyree.o rg/pr judyess ional s/kdo qi/gf r_cal culat or Not Available [facility] (Lab) [address] [place], [address], 06/05/2022 13:32:19 06/05/20 22 06/05/2022 COMPR EHENS TERI METAB OLIC PANEL alkaline phosphatase 120 U/L 38-[address] [facility] (Lab) [address] [place], [address], 06/05/2022 13:32:19 06/05/20 22 06/05/2022 COMPR EHENS TERI METAB OLIC PANEL alanine aminotransfe rase 18 U/L 0-35 Not Available [facility] (Lab) [address] [place], [address], 06/05/2022 13:32:19 06/05/20 22 06/05/2022 COMPR EHENS TERI METAB OLIC PANEL aspartate aminotransfe rase 23 U/L 15-37 Not Available [facility] (Lab) [address] [facility] [place], [address], 06/05/2022 13:32:19 06/05/20 22 06/05/2022 COMPR EHENS TERI METAB OLIC PANEL bilirubin, total 0.70 mg/dL 0.20-1 .30 Not Available [facility] (Lab) [address] [place], [address], 06/05/2022 13:32:19 06/05/20 22 06/05/2022 COMPR EHENS TERI METAB OLIC PANEL calcium 9.4 mg/dL 8.4-10 .2 Not Available [facility] (Lab) [address] [place], [address], 06/05/2022 13:32:19 06/05/20 22 06/05/2022 COMPR EHENS TERI METAB OLIC PANEL total protein 6.7 g/dL 6.3-8. 2 Not Available [facility] (Lab) [address] [place], [address], 06/05/2022 13:32:19 06/05/20 22 06/05/2022 COMPR EHENS TERI METAB OLIC PANEL albumin 4.1 g/dL 3.0-4. 4 Not Available [facility] (Lab) [address] [place], [address], 06/05/2022 13:32:19 06/05/20 22 06/05/2022 COMPR EHENS TERI METAB OLIC PANEL globulin 2.6 g/dL 2.6-4. 2 Not Available [facility] (Lab) [address] [place], [address], 06/05/2022 13:32:19 06/05/20 22 06/05/2022 COMPR EHENS TERI METAB OLIC PANEL A/G ratio 1.6 ratio 1.0-2. 0 Not Available [facility] (Lab) [address] [facility] [place], [address], 06/05/2022 13:32:19 10/10/19 23 10/09/2022 COMPR EHENS TERI METAB OLIC PANEL sodium 138 mmol/ L 137-14 5 Not Available [facility] (Lab) [address] [place], [address], 10/09/2022 12:57:29 10/10/19 23 10/09/2022 COMPR EHENS TERI METAB OLIC PANEL potassium 4.4 mmol/ L 3.5-5. 1 Not Available [facility] (Lab) [address] [place], [address], 10/09/2022 12:57:29 10/10/19 23 10/09/2022 COMPR EHENS TERI METAB OLIC PANEL chloride 105 mmol/ L 98-107 Not Available [facility] (Lab) [address] [place], [address], 10/09/2022 12:57:29 10/10/19 23 10/09/2022 COMPR EHENS TERI METAB OLIC PANEL carbon dioxide 25 mmol/ L 22-30 Not Available [facility] (Lab) [address] [place], [address], 10/09/2022 12:57:29 10/10/19 23 10/09/2022 COMPR EHENS TERI METAB OLIC PANEL anion gap 12.4 mmol/ L 14-22 low Not Available [facility] (Lab) [address] [place], [address], 10/09/2022 12:57:29 10/10/19 23 10/09/2022 COMPR EHENS TERI METAB OLIC PANEL glucose 109 mg/dL 70-99 high Not Available [facility] (Lab) [address] [place], [address], 10/09/2022 12:57:29 10/10/19 23 10/09/2022 COMPR EHENS TERI METAB OLIC PANEL BUN 13 mg/dL 8-19 Not Available [facility] (Lab) [address] [place], [address], 10/09/2022 12:57:29 10/10/19 23 10/09/2022 COMPR EHENS TERI METAB OLIC PANEL creatinine 0.75 mg/dL 0.66-1 .25 Not Available [facility] (Lab) [address] [place], [address], 10/09/2022 12:57:29 10/10/19 23 10/09/2022 COMPR EHENS TERI METAB OLIC PANEL GFR >60 Refer ence Range : Gilman ge GFR Healt hy Adult : >60 [...] deneenu latjulia is avail able on the [facility] websi te: [email or web address] :[email or web address] rg/pr ofess ional s/kdo qi/gf r_cal culat or Not Available [facility] (Lab) [address] [place], [address], 10/09/2022 12:57:29 10/10/19 23 10/09/2022 COMPR EHENS TERI METAB OLIC PANEL alkaline phosphatase 108 U/L 38-[address] [facility] (Lab) [address] [place], [address], 10/09/2022 12:57:29 10/10/19 23 10/09/2022 COMPR EHENS TERI METAB OLIC PANEL alanine aminotransfe rase 22 U/L 0-35 Not Available [facility] (Lab) [address] [place], [address], 10/09/2022 12:57:29 10/10/19 23 10/09/2022 COMPR EHENS TERI METAB OLIC PANEL aspartate aminotransfe rase 25 U/L 15-37 Not Available [facility] (Lab) [address] [place], [address], 10/09/2022 12:57:29 10/10/19 23 10/09/2022 COMPR EHENS TERI METAB OLIC PANEL bilirubin, total 0.70 mg/dL 0.20-1 .30 Not Available [facility] (Lab) [address] [place], [address], 10/09/2022 12:57:29 10/10/19 23 10/09/2022 COMPR EHENS TERI METAB OLIC PANEL calcium 9.6 mg/dL 8.4-10 .2 Not Available [facility] (Lab) [address] [place], [address], 10/09/2022 12:57:29 10/10/1910/09/2022 COMPR EHENS TERI METAB OLIC PANEL total protein 7.2 g/dL 6.3-8. 2 Not Available [facility] (Lab) [address] [place], [address], 10/09/2022 12:57:29 10/10/19 23 10/09/2022 COMPR EHENS TERI METAB OLIC PANEL albumin 4.2 g/dL 3.0-4. 4 Not Available [facility] (Lab) [address] [place], [address], 10/09/2022 12:57:29 10/10/19 23 10/09/2022 COMPR EHENS TERI METAB OLIC PANEL globulin 3.0 g/dL 2.6-4. 2 Not Available [facility] (Lab) [address] [place], [address], 10/09/2022 12:57:29 10/10/19 23 10/09/2022 COMPR EHENS TERI METAB OLIC PANEL A/G ratio 1.4 ratio 1.0-2. 0 Not Available [facility] (Lab) [address] [place], [address], 10/09/2022 12:57:29 10/10/19 23 10/09/2022 T4 FREE free T4 1.65 NG/dL 0.78-2 .19 Not Available [facility] (Lab) [address] [place], [address], 10/09/2022 13:52:01 10/10/1910/09/2022 TSH thyroid-stim ulating hormone <0.015 uIU/m L 0.465- 4.680 low Not Available [facility] (Lab) [address] [place], [address], 10/09/2022 13:53:06 10/10/19 23 10/09/2022 VITAM IN B12 (SONAL CHATA ) vb12 451 pg/mL 239-93 1 Not Available [facility] (Lab) [address] [place], [address], 10/09/2022 14:02:05 10/10/19 23 10/09/2022 FOLAT E, SERUM /PLAS MA folate 14.4 NG/mL 2.76-2 0.0 Not Available [facility] (Lab) [address] [place], [address], 10/09/2022 14:02:10 10/10/19 23 10/10/2022 THYRO GLOBU MILAGRO ANTIB STEVE thyroglobuli n antibody <1.0 IU/mL 0.0-0. 9 Thyro globu milagro Antib steve measu red by Margot Ballesteros er Metho dolog y Perfo rmed at: - [facility] [address] [id number] Lab Direc tor: Harsha amado PhD, Phone : [phone] Not Available [facility] (Lab) [address] [place], [address], 10/10/2022 15:11:44 10/10/19 23 10/17/2022 THYRO GLOBU [...] BN - [facility] [place] [address] , [place] [address] Lab Direc tor: Olga pham MD, Phone : [phone] Not Available [facility] (Lab) [address] [place], [address], 10/17/2022 13:11:06 10/27/19 22 10/25/2021 US, thyro id No observ ation record ed. [id number], [place], [address], 10/01/2022 04:59:49 06/02/20 23 06/02/2023 bone densi ty No observ ation record ed. [email or web address] [address] [facility], [place], [address], 07/13/2023 16:42:13 Result Notes None recorded. Problems Name Problem SNOMED Code Status Onset Date Resolution Date Notes Provider Name and Address Organization Details Recorded Time Postoperative hypothyroidism 18885548 Active 2022 Yanleis Martinez MD [address], [address], [place] 3 12:53:56 Osteopenia 422543549 Active 2022 Yanelis Martinez MD [address], [address], [facility] 3 12:54:42 Steroid-induce d hyperglycemia 529807607 Active 2022 Yanelis Martinez MD [address], [address], [facility] 3 12:55:59 Problem Notes None recorded. Procedures [...] Details LastModified Time 10/25/2021 US, thyroid completed [id number] [address] [place] [address], [address], 10/01/2022 04:59:49 06/02/2023 bone density completed [email or web address] [facility] [address] [facility] [address], [place], [address], 07/13/2023 16:42:13 Procedure Notes None recorded. Medical Equipment None Reported. Allergies Allergen ID Allergen Name Allergen Category Reaction Reaction Severity Criticality Documentation Date Start Date Code Code System Note Provider Name and Address Organization Details Recorded Time 7309 Synthroid medicatio n hives Not available Not available 10/01/2022 27067 0 RxNorm Not Available [facility] 3 04:59:26 7310 sulfameth oxazole / trimethop rim medicatio n Not available Not available Not available 10/01/2022 53964 RxNorm Not Available [facility] 3 04:59:26 7311 Substance with sulfonami de structure and antibacte rial mechanism of action (substanc e) medicatio n Not available Not available Not available 10/01/2022 78298 8003 SNOMED Not Available [facility] 3 04:59:26 7312 Product containin g penicilli n (product) medicatio n Not available Not available Not available 10/01/2022 31558 8001 SNOMED Not Available [facility] 3 04:59:26 7313 levothyro xine sodium medicatio n hives Not available Not available 10/01/2022 84222 RxNorm Not Available [facility] 3 04:59:27 7314 levofloxa parag medicatio n Not available Not available Not available 10/01/2022 13628 RxNorm Not Available [facility] 3 04:59:27 7315 iodine medicatio n Not available Not available Not available 10/01/2022 5933 RxNorm Not Available [facility] 3 04:59:27 7316 Iodinated contrast media (substanc e) medicatio n Not available Not available Not available 10/01/2022 69298 2004 SNOMED Not Available [facility] 3 04:59:27 7317 amoxicill in medicatio n Not available Not available Not available 10/01/2022 723 RxNorm Not Available [facility] 3 04:59:27 Medications Name Sig Start Date Stop Date Status Note LastModified by Organization Details LastModified Time amoxicillin 500 mg capsule 03/24 completed Not Available Not Available Not Available [place] Thyroid 60 mg tablet 03/04 completed Not [...] completed Not Available Not Available Not Available [place] Thyroid 15 mg tablet 11/19 completed Not [...] % 80 /min 16 /min 98.2 [degF] 81564.8 9 g 120 mm[Hg] 80 mm[Hg] Not Available [facility] 3 04:49:51 Date Recorded Body mass index (BMI) Body height Oxygen saturation Oxygen saturation in Arterial blood by Pulse oximetry Heart rate Body temperature Body weight Systolic blood pressure Diastolic blood pressure Provider Name and Address Organization Details Last Updated DateTime 2 28.5 kg/m2 160.02 cm 98 % 98 % 70 /min 97.8 [degF] 03072.3 7 g 125 mm[Hg] 80 mm[Hg] Not Available [facility] 3 04:49:52 Date Recorded Body height Oxygen saturation Oxygen saturation in Arterial blood by Pulse oximetry Heart rate Body temperature Systolic blood pressure Diastolic blood pressure Provider Name and Address Organization Details Last Updated DateTime 2 160.02 cm 97 % 97 % 71 /min 97.8 [degF] 140 mm[Hg] 95 mm[Hg] Not Available [facility] 3 04:49:51 Date Recorded Body height Body mass index (BMI) Body weight Body temperature Heart rate Systolic blood pressure Diastolic blood pressure Provider Name and Address Organization Details Last Updated DateTime 3 160.02 cm 29.7 kg/m2 43843.0 8 g 98 [degF] 77 /min 159 mm[Hg] 87 mm[Hg] Marbella Bro QUAN [facility] 3 12:42:43 Date Recorded Body height Body mass index (BMI) Body weight Heart rate Provider Name and Address Organization Details Last Updated DateTime 05/08/2023 160.02 cm 29.1 kg/m2 58552.15 g 98 /min Heike Garcia [facility] 05/08/2023 08:58:52 Social History Question Answer Notes LastModified by Organizat ion Details LastModified Time Tobacco Smoking Status Former Smoker quit 2001 Not Available [facility] 10/01/2022 04:42:28 What Is Your Level Of Alcohol Consumption? Occasional [id number] Information not available 10/01/2022 What Is Your Level Of Caffeine Consumption? Moderate [id number] Information not available 10/01/2022 How Much Tobacco Do You Chew? None [id number] Information not available 10/01/2022 In The 14 Days Before Symptom Onset, Have You Had Close Contact With A Laboratory-confir med COVID-19 While That Case Was Ill? No [id number] Information not available 10/01/2022 In The 14 Days Before Symptom Onset, Have You Had Close Contact With A Person Who Is Under Investigation For COVID-19 While That Person Was Ill? No [id number].56590 [id number] Information not available 10/01/2022 Which Illicit Or Recreational Drugs Have You Used? None [id number].48179 85659 Information not available 10/01/2022 Do You Or Have You Ever Used E-cigarettes Or Vape? Never Used Electronic Cigarettes [id number].43925 80234 Information not available 10/01/2022 Have You Recently Traveled Abroad? No MIGRATION.73278 31588 Information not available 10/01/2022 Sex: Female Functional Status None recorded. Mental Status None recorded. Family History Relationship Description Onset Age of this Age Resolved Age Notes LastModified by Organization Details LastModified Time Father Diabetes mellitus [id number].406 [id number] Not available 10/01/2022 04:42:45 Father Hypertensive disorder [id number].473 [id number] Not available 10/01/2022 04:42:45 Father Heart disease [id number].682 [id number] Not available 10/01/2022 04:42:45 Mother Diabetes mellitus [id number].457 [id number] Not available 10/01/2022 04:42:45 Mother Disorder of thyroid gland [id number].004 [id number] Not available 10/01/2022 04:42:45 Sister Diabetes mellitus MIGRATION.303 [id number] Not available 10/01/2022 04:42:45 Brother Heart disease [id number].877 [id number] Not available 10/01/2022 04:42:45 Brother Diabetes mellitus x3 [id number].324 [id number] Not available 10/01/2022 04:42:46 Medical History Condition Response THYROID DISEASE Y CANCER: SPECIFY Y HEADACHES/MIGRAINES Y HAVE YOU BEEN HOSPITALIZED OR SEEN IN [facility] ER IN THE PAST YEAR ? Y HYPOTHYROIDISM Y Gynecological HistoryNo gynecological history recorded. Obstetrics History GPAL:G 0 P 0 0 0 0 Past Encounters Encounter ID Performer Location Encounter Start Date Encounter Closed Date Diagnosis/Indication Diagnosis SNOMED-CT Code Diagnosis ICD10 Code Diagnosis Note [id number] [facility] [place] [address] [place] [address] 11/19/2020 00:00:00 11/19/2020 13:44:46 [id number] [facility] [place] [address] [place] [address] 03/04/2021 00:00:00 03/04/2021 11:23:05 [id number] [facility] [place] [address] [place] [address] 06/10/2021 00:00:00 06/10/2021 12:36:45 [id number] [facility] [place] [address] [facility] [place] [address] 10/07/2021 00:00:00 10/07/2021 14:52:17 [id number] [facility] [place] [address] [place] [address] 03/24/2022 00:00:00 03/24/2022 13:30:15 [id number] Yanelis Martinez MD [facility] [place] [address] [place] [address] 10/16/2022 12:34:58 10/16/2022 14:03:43 Postoperative hypothyroidism 27057670 E89.0 TSH suppressed however was on high dose prednisone which is known to suppress TSH levels- FT4 in ideal range and TG panel negative- continue on tirosint 100 mcg daily. Thyroid u/s clear of thyroid tissue from 10/25/22. Continue current regimen. Osteopenia 273774279 M85 .80 Send for repeat bone density this summer to monitor for any evidence of bone loss. She is on chronic high dose LT4 for hx of thyroid ca and has been on steroid therapy so higher risk for bone loss. Steroid-in duced hyperglycemia 580591859 R73.9 She had high dose steroid therapy for URI this past winter- glucose of 109 mg/dL during therapy- will send for a1c and insulin to screen for true hyperglyce kem or concern for underlying impaired glucose. Discussed carb counting and how to read food labels. Recommende d patient to utilize the diabetesfo [employer] from the ADA website to help with food preparatio n as this presents ideal carb content per meal so this will make carb counting much easier for patient. Recommende d she incorporat e natural insulin auto transmission specialist s such as pears, apples, cinnamon, [...] she chooses to go outside of the [facility] to obtain labwork she was [...] in her case. She voiced understand ing. [id number] Yanelis Martinez MD [facility] [place] [address] [place] [address] 05/08/2023 08:52:55 05/08/2023 09:25:33 Postoperative hypothyroidism 02388724 E89.0 TSH just under 0.1 uIU/ml but [...] Name 10/16/2022 1 [place] Marley Stephenson [id number] Marley Stephenson 10/16/2022 2 WPS - FOR LIFE (MEDICARE SUPPLEMENT) Morales Stephenson [id number] Marley Stephenson 05/08/2023 1 [place] Marley Stephenson [id number] Marley Stephenson 05/08/2023 2 WPS - FOR LIFE (MEDICARE SUPPLEMENT) Morales Stephenson [id number] Marley Stephenson Notes Date Note Type Note [...] marginally elevated. She saw Dr. Peter in [place] -was given prednisone and z pack. The infection came back within a few days. She was given a 14 day course of prednisone taper. Her BP was elevated secondary to the steroid therapy. She stopped her last prednisone dose 2 weeks ago. labs from 10/23:TG negTSH <0.015 uIU/mlFT4 of 1.65 ng/dLB12/folate normalglucose 109 mg/dLCr normalLFT normal Yanelis Martinez MD [address] [facility] [address], [place], [address], [facility] 10/16/2022 13:58:41 05/08/2023 text/html 68 yo female [...] D 53 ng/mL Yanelis Martinez MD [address] [facility] [address], [place], [address], [place] [facility] 05/08/2023 09:37:40 OBGyn Episode No OBEpisode recorded.
--- OUTSIDE RECORDS SUMMARY | 2024-10-25 16:34 | XMS_ITS | Clinical Summary ---
Author Organization [facility] Address [address] [place] [address] Care Team Providers Care Director Construction Services Name Role Phone Elizabet Campos MD Primary Care Provider [phone] Social History Tobacco Use Types Packs/Day Years [...] of 1 - PCV) 2020 COVID-19 Vaccine ( - 2023-2 5 season) 2024 Influenza Adult (#1) 2024 [...] age to complete this topic Insurance MEDICARE [facility] Care Teams Director Construction Services Relationship Specialty Start Date End Date Elizabet Cmapos MD [address] [place] [address] PCP - General INTERNAL MEDICINE 12/14/17
== END 2024-10-25 14:08 | disposition home or self-care (01) ==
LOC: ANHIMG 14:09
PROVIDERS: PCP Internal Medicine; Visit Provider Internal Medicine
DX: Z12.31 Encounter for screening mammogram for malignant neoplasm of breast (principal)
CPT/HCPCS: 77063; 77067

== ENCOUNTER 2025-03-07 07:55 | Outpatient (CLI) | payer MEDICARE, OTHER, SELFPAY ==
--- OUTSIDE RECORDS SUMMARY | 2025-03-07 08:02 | XMS_ITS | Encounter Summary ---
Author Organization [facility] Address [address] [place] [address] Care Team Providers Care Home Health Administrator Name Role Phone Elizabet Campos MD Primary Care Provider + Encounter Details Date Type Department Care Team (Late Contact Info) Description 12/04/2020 Chart Note [facility] Radiation Therapy [address] [place] [address] [place] [address] [place] [address] Social History Tobacco Use Types [...] Description 10/16/2025 10:15 AM CDT Office Visit [facility] Oncology and Hematology - [place] [address] [facility] [address] [place] [address] Hai Marroquin MD [address] [facility] [address] [place] [address] documented as of this encounter Visit Diagnoses Not on filedocumented in this encounter Care Teams Home Health Administrator Relationship Specialty Start Date End Date Elizabet Campos MD [address] [place] [address] PCP - General Internal Medicine 02/01/18 documented as of this encounter
--- OUTSIDE RECORDS SUMMARY | 2025-03-07 08:02 | XMS_ITS ---
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
--- OUTSIDE RECORDS SUMMARY | 2025-03-07 08:02 | XMS_ITS | Clinical Summary ---
Author Organization [facility] Address [address] [place] [address] Care Team Providers Care Conservation Agent Name Role Phone Elizabet Campos MD Primary Care Provider [phone] Hayley Walsh MD Unavailable [phone] Allergies Active Allergy Reactions Criticality Noted Date Comments Amoxicillin-Pot Clavulanate Hives Medium 05/29/20 20 Iodinated Contrast Media Hives Medium 08/30/2020 Levofloxacin Hives Medium 03/08/2018 Levothyroxine Hives Medium 07/14/2018 Sulfa (Sulfonamide Antibiotics) Hives Medium Medications omega 5-dns-flm-fish oil 1,000 mg (120 mg-180 mg) capsuleIndicati [...] (six) hours as needed for pain Active [facility] Thyroid 60 mg tabletIndicatio ns:hypothyroidi sm Take [...] (08/16/2020): Added automatically from request for surgery [id number] Metastatic papillary carcinoma 08/16/2020 Overview (08/16/2020): Added automatically from request for surgery [id number] Thyroid cancer 04/28/2018 Cancer Staging:Pathologic stage from [...] on file Legal Sex Female 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 PEELER Gender Identity Not on file Sexual Orientation Not on file Obstetrics History Comments Hysterectomy 1989 Last Filed Vital Signs Vital Sign Reading Time Taken Comments Blood Pressure 120/59 09/13/2020 7:50 AM BARK PEELER Pulse 60 09/13/2020 7:50 AM BARK PEELER Temperature 36.6 C (97.8 F) 09/13/2020 7:50 AM BARK PEELER Respiratory Rate 16 09/13/2020 7:50 AM BARK PEELER Oxygen Saturation 97% 09/13/2020 7:50 AM BARK PEELER Inhaled Oxygen Concentration - - Weight 80.8 kg (178 lb 3.2 oz) 04/09/2023 11:30 AM CDT Height 160 cm (5' 3) 04/09/2023 11:30 AM CDT Body Mass Index [...] Risk Assessment 09/12/2021 09/12/2020 Influenza Vaccine (#1) 2025 Insurance MEDICARE [employer] [facility] CLAIM[facility] MEDICARE [facility] MEDICARE Advance Directives For more information, please contact: [phone] * Full Code (Latest Code Status on File) Date Activated Date Inactivated Comments 09/12/2020 3:13 PM 09/13/2020 3:52 PM Care Teams Conservation Agent Relationship Specialty Start Date End Date Elizabet Campos MD [address] [place] [address] PCP - General 04/27/18 Hayley Walsh MD [address] [place] [address] Referring Physician Internal Medicine 04/28/18
--- OUTSIDE RECORDS SUMMARY | 2025-03-07 08:02 | XMS_ITS | Clinical Summary ---
Author Organization [facility] Address [address] [place] [address] Care Team Providers Care Machinist [employer] Name Role Phone Elizabet Campos MD Primary [...] tablet Take 200 mg by mouth. Active [id number]-EPA -fish oil 1,000 mg Capsule Take 1 [...] Encounters Date Type Department Care Team Description 02/15/2025 External Device Data [facility] Provider, Abstract 02/15/2025 External Device Data [facility] Provider, Abstract 02/15/2025 External Device Data [facility] Provider, Abstract 02/14/2025 External Device Data [facility] Provider, Abstract 01/31/2025 External Device Data [facility] Provider, Abstract 01/24/2025 External Device Data [facility] [place] Provider, Abstract 12/21/2024 External Device Data [facility] [place] Provider, Abstract 12/20/2024 External Device Data [facility] [place] Provider, Abstract [...] 10:10 AM CDT Height 160 cm (5' 3) 04/15/2022 10:36 AM CDT Body Mass Index 29.62 04/15/2022 10:36 AM CDT Plan of Treatment Upcoming Encounters Date Type Department Care Team (Late st Contact Info) Description 10/16/2025 10:15 AM CDT Office Visit [facility] Oncology and Hematology - [place] [address] [place] [address] Hai Marroquin MD [facility] [address] [place] [address] Health Maintenance Due Date Last [...] - Risk 60-74 years 1-dose series) 2015 INFLUENZA VACCINE (#1) 2025 BREAST CANCER SCREENING 10/26/2025 10/27/19 25, 10/26/2024, 10/25/2024, Additional history exists OSTEOPOROSIS SCREENING 06/02/2028 06/02/2023, 2020 Procedures Procedure Name Priority Date/Time Associated Diagnosis Comments MAMMO SCREENING BILAT Routine 10/06/2018 from Last 3 Months or Most Recently Relevant to Health Maintenance Results * MAMMO SCREENING BILAT (10/06/2018) Anatomical Region Laterality Modality Breast Bilateral Mammography us Abstract Provider MAMMO ORDERABLES Final Result from Last 3 Months or Most Recently Relevant to Health Maintenance Insurance MEDICARE PART A AND B FOR LIFE Care Teams Machin[employer] Relationship Specialty Start Date End Date Elizabet Campos MD [address] [place] [address] PCP - General Internal Medicine 02/01/18
--- OUTSIDE RECORDS SUMMARY | 2025-03-07 08:02 | XMS_ITS | Encounter Summary ---
Author Organization [facility] Address [address] [place] [address] Care Team Providers Care Assistant Manager Bilingual Name Role Phone Elizabet Campos MD Primary Care Provider + Encounter Details Date Type Department Care Team (Late Contact Info) Description 03/16/2018 Chart Note [facility] Radiation Therapy [address] [place] [address] [place] [address] [place] [address] Social History Tobacco Use Types [...] Description 10/16/2025 10:15 AM CDT Office Visit [facility] Oncology and Hematology - Ronny [address] [facility] [address] [place] [address] Hai Marroquin MD [address] [facility] [address] [place] [address] documented as of this encounter Visit Diagnoses Not on filedocumented in this encounter Care Teams Assistant Manager Bilingual Relationship Specialty Start Date End Date Elizabet Campos MD [address] [place] [address] PCP - General Internal Medicine 02/01/18 documented as of this encounter
--- OUTSIDE RECORDS SUMMARY | 2025-03-07 08:02 | XMS_ITS | Encounter Summary ---
Author Organization [facility] Address [address] [place] [address] Care Team Providers Care Marble Coper Name Role Phone Elizabet Campos MD Primary Care Provider [phone] Encounter Details Date Type Department Care Team (Late st Contact Info) Description 10/17/2017 Abstract SJS CONVERSION [address] [place] [address] , Generic Conversion, Social History Tobacco Use [...] on filedocumented in this encounter Care Teams Marble Coper Relationship Specialty Start Date End Date Elizabet Campos MD [address] [place] [address] PCP - General INTERNAL MEDICINE 12/14/17 documented as of this encounter
--- OUTSIDE RECORDS SUMMARY | 2025-03-07 08:02 | XMS_ITS | Encounter Summary ---
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
--- OUTSIDE RECORDS SUMMARY | 2025-03-07 08:02 | XMS_ITS | Clinical Summary ---
Author Organization [facility] Address [address] [place] [address] Care Team Providers Care Counseling Services Director Name Role Phone Elizabet Campos MD Primary Care Provider Social History Tobacco Use Types Packs/Day Years [...] 1:03 PM CDT Height 160 cm (5' 3) 10/20/2013 1:03 PM CDT Body Mass Index 29.23 10/20/2013 1:03 PM CDT Plan of Treatment Health Maintenance Due Date Last Done Comments Colorectal Cancer Screening Colonoscopy (10 Years) 1955 Hepatitis C 1973 DTaP, Tdap and Td Vaccines ( 1 - Tdap) 1974 Mammogram Screening 1995 Pneumococcal Vaccine: 50+ Ye ars (1 of 1 - PCV) 2005 Zoster Vaccines (1 of 2) 2005 Annual Medicare Wellness Visit 2020 Dexa Scan (General) 2020 COVID-19 Vaccine ( - 2023-2 5 season) 2024 RSV Immunization or 60+ Years (1 [...] age to complete this topic Insurance MEDICARE [employer] Care Teams Counseling Services Director Relationship Specialty Start Date End Date Elizabet Campos MD [address] [place] [address] PCP - General INTERNAL MEDICINE 12/14/17
--- OUTSIDE RECORDS SUMMARY | 2025-03-07 08:02 | XMS_ITS | Referral Summary ---
Author Organization [facility] Address [address] [place] [address] Care Team Providers Care Sales Rep Name Role Phone Elizabet Campos MD Primary Care Provider [phone] Hayley Walsh MD Unavailable [phone] Allergies Active Allergy Reactions Criticality Noted Date Comments Amoxicillin-Pot Clavulanate Hives Medium 05/29/20 20 Iodinated Contrast Media Hives Medium 08/30/2020 Levofloxacin Hives Medium 03/08/2018 Levothyroxine Hives Medium 07/14/2018 Sulfa (Sulfonamide Antibiotics) Hives Medium Medications omega 5-sfh-iel-fish oil 1,000 mg (120 mg-180 mg) capsuleIndicati [...] (six) hours as needed for pain Active [place] Thyroid 60 mg tabletIndicatio ns:hypothyroidi sm Take [...] (08/16/2020): Added automatically from request for surgery [id number] Metastatic papillary carcinoma 08/16/2020 Overview (08/16/2020): Added automatically from request for surgery [id number] Thyroid cancer 04/28/2018 Cancer Staging:Pathologic stage from [...] on file Legal Sex Female 4:01 AM ELECTRO MECHANICAL ENGINEER Gender Identity Not on file Sexual Orientation Not on file Last Filed Vital Signs Vital Sign Reading Time Taken Comments Blood Pressure 120/59 09/13/2020 7:50 AM ELECTRO MECHANICAL ENGINEER Pulse 60 09/13/2020 7:50 AM ELECTRO MECHANICAL ENGINEER Temperature 36.6 C (97.8 F) 09/13/2020 7:50 AM ELECTRO MECHANICAL ENGINEER Respiratory Rate 16 09/13/2020 7:50 AM ELECTRO MECHANICAL ENGINEER Oxygen Saturation 97% 09/13/2020 7:50 AM ELECTRO MECHANICAL ENGINEER Inhaled Oxygen Concentration - - Weight 80.8 kg (178 lb 3.2 oz) 04/09/2023 11:30 AM CDT Height 160 cm (5' 3) 04/09/2023 11:30 AM CDT Body Mass Index 31.57 04/09/2023 11:30 AM CDT Plan of Treatment Not on file Insurance MEDICARE [facility] [employer] CLAIMS FOR LIFE [facility] MEDICARE [facility] MEDICARE Advance Directives For more information, please contact: [phone] * Full Code (Latest Code Status on File) Date Activated Date Inactivated Comments 09/12/2020 3:13 PM 09/13/2020 3:52 PM Care Teams Sales Rep Relationship Specialty Start Date End Date Elizabet Campos MD [address] [place] [address] PCP - General 04/27/18 Hayley Walsh MD [address] [place] [address] Referring Physician Internal Medicine 04/28/18
[2025-03-07 09:51] LABS: Free T4 Free Thyroxine 1.21 ng/dL (0.78-2.19)
[2025-03-07 10:05] LABS: Thyroid Stimulating Hormone 0.624 uIU/mL (0.465-4.680)
[2025-03-08 15:09] LABS: Thyroglobulin by IMA YES YES
== END 2025-03-07 07:56 | disposition home or self-care (01) ==
LOC: ANHLAB 07:57
PROVIDERS: PCP Internal Medicine; Visit Provider Internal Medicine Endocrinology, Diabetes & Metabolism
DX: C73 Malignant neoplasm of thyroid gland (principal); E03.9 Hypothyroidism, unspecified
CPT/HCPCS: 36415; 84432; 84439; 84443; 86800

== ENCOUNTER 2025-05-15 14:31 | Outpatient (CLI) | payer MEDICARE, OTHER, SELFPAY ==
--- NOTE | ~2025-05-15 | XR_ITS ---
EXAMINATION: XR hip BI wo pelvis, 05/15/2025 14:37 CDT HISTORY: BL Hip Pain COMPARISON: No comparisons available. Findings: No acute fracture or malalignment. Severe degenerative changes Soft tissues unremarkable. Impression: No acute fracture or malalignment. Reviewed, dictated and finalized at location P. Impression: No acute fracture or malalignment.
--- OUTSIDE RECORDS SUMMARY | 2025-05-15 15:35 | XMS_ITS | Encounter Summary ---
Author Organization [facility] Address [address] [place] [address] Care Team Providers Care Phlebotomy Supervisor Name Role Phone Elizabet Campos MD Primary Care Provider [phone] Encounter Details Date Type Department Care Team (Late st Contact Info) Description 10/17/2017 Abstract SJS CONVERSION [address] [place] [address] , Generic Conversion, Social History Tobacco Use [...] on filedocumented in this encounter Care Teams Phlebotomy Supervisor Relationship Specialty Start Date End Date Elizabet Campos MD [address] [place] [address] PCP - General INTERNAL MEDICINE 12/14/17 documented as of this encounter
--- OUTSIDE RECORDS SUMMARY | 2025-05-15 15:35 | XMS_ITS | Encounter Summary ---
Author Organization [facility] Address [address] [place] [address] Care Team Providers Care Casting Molder Name Role Phone Elizabet Campos MD Primary Care Provider + Encounter Details Date Type Department Care Team (Late Contact Info) Description 12/04/2020 Chart Note [facility] Radiation Therapy [address] [place] [address] [place] [address] [place] [address] Social History Tobacco Use Types [...] Description 10/16/2025 10:15 AM CDT Office Visit [facility] Oncology and Hematology - Ronny [address] [facility] [address] [place] [address] Hai Marroquin MD [address] [facility] [address] [place] [address] documented as of this encounter Visit Diagnoses Not on filedocumented in this encounter Care Teams Casting Molder Relationship Specialty Start Date End Date Elizabet Campos MD [address] [place] [address] PCP - General Internal Medicine 02/01/18 documented as of this encounter
--- OUTSIDE RECORDS SUMMARY | 2025-05-15 15:35 | XMS_ITS | Clinical Summary ---
Author Organization [facility] Address [address] [place] [address] Care Team Providers Care Lease Administration Analyst Name Role Phone Elizabet Campos MD [...] tablet Take 200 mg by mouth. Active ifnhp-1-LOZ-EPA -fish oil 1,000 mg Capsule Take 1 [...] Encounters Date Type Department Care Team Description 05/02/2025 External Device Data STL ABSTRACTION Provider, Abstract 04/18/2025 External Device Data STL ABSTRACTION Provider, Abstract 03/08/2025 External Device Data ST[place] ABSTRACTION Provider, Abstract 03/07/2025 External Device Data ST[place] ABSTRACTION Provider, Abstract [...] 10:15 AM CDT Office Visit [facility] Oncology and Hematology - Ronny Eduardo [address] [place] [address] Hai Marroquin MD [facility] [address] [place] [address] Health Maintenance Due Date Last [...] A AND B FOR LIFE Care Teams Lease Administration Analyst Relationship Specialty Start Date End Date Elizabet Campos MD [address] [place] [address] PCP - General Internal Medicine 02/01/18
--- OUTSIDE RECORDS SUMMARY | 2025-05-15 15:35 | XMS_ITS | Encounter Summary ---
Author Organization [facility] Address [address] [place] [address] Care Team Providers Care Caramel Candy Maker Helper Name Role Phone Elizabet Campos MD Primary Care Provider + Encounter Details Date Type Department Care Team (Late Contact Info) Description 03/16/2018 Chart Note [facility] Radiation Therapy [address] [place] [address] [place] [address] [place] [address] Social History Tobacco Use Types [...] Description 10/16/2025 10:15 AM CDT Office Visit [facility] Oncology and Hematology - Ronny [address] [facility] [address] [place] [address] Hai Marroquin MD [address] [facility] [address] [place] [address] documented as of this encounter Visit Diagnoses Not on filedocumented in this encounter Care Teams Caramel Candy Maker Helper Relationship Specialty Start Date End Date Elizabet Campos MD [address] [place] [address] PCP - General Internal Medicine 02/01/18 documented as of this encounter
--- OUTSIDE RECORDS SUMMARY | 2025-05-15 15:35 | XMS_ITS | Clinical Summary ---
Author Organization [facility] Address [address] [place] [address] Care Team Providers Care Winder Operator Name Role Phone Elizabet Campos MD Primary Care Provider [phone] Social History Tobacco Use Types Packs/Day Years [...] COVID-19 Vaccine ( - 2023-2 5 season) 2025 Influenza Adult (#1) 2025 RSV Immunization or 60+ Years (1 - [...] this topic Insurance MEDICARE [employer] Care Teams Winder Operator Relationship Specialty Start Date End Date Elizabet Campos MD [address] [place] [address] PCP - General INTERNAL MEDICINE 12/14/17
--- OUTSIDE RECORDS SUMMARY | 2025-05-15 15:35 | XMS_ITS | Encounter Summary ---
Author Organization [facility] Healthcare Address [address] [place] [address] Care Team Providers Care Floor Covering Printer Name Role Phone Elizabet Campos MD Primary Care Provider + [phone] Isac Nolasco MD Unavailable [phone] Hayley Walsh MD Unavailable + [phone] Encounter Details Date Type Department Care Team (Late st Contact Info) Description 11/20/2020 Telephone [facility]) [address] [place] [address] Sugey Shah, RT Social History [...] on filedocumented in this encounter Care Teams Floor Covering Printer Relationship Specialty Start Date End Date Elizabet Campos MD [address] [place] [address] PCP - General 04/27/18 Isac Nolasco MD [address] [address] Radiation Oncologist Radiation Oncology 04/27/1808/04/ 4 Hayley Walsh MD [address] [place] [address] Referring Physician Internal Medicine 04/28/18 documented as of this encounter
--- OUTSIDE RECORDS SUMMARY | 2025-05-15 15:35 | XMS_ITS ---
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
--- OUTSIDE RECORDS SUMMARY | 2025-05-15 15:35 | XMS_ITS | Clinical Summary ---
Author Organization [facility] Address [address] [place] [address] Care Team Providers Care Chucking Lathe Operator Name Role Phone Elizabet Campos MD Primary Care Provider [phone] Hayley Walsh MD Unavailable [phone] Allergies Active Allergy Reactions Criticality Noted Date Comments Amoxicillin-Pot Clavulanate Hives Medium 05/29/20 20 Iodinated Contrast Media Hives Medium 08/30/2020 Levofloxacin Hives Medium 03/08/2018 Levothyroxine Hives Medium 07/14/2018 Sulfa (Sulfonamide Antibiotics) Hives Medium Medications omega 5-blv-zst-fish oil 1,000 mg (120 mg-180 mg) capsuleIndicati [...] (six) hours as needed for pain Active [place] Thyroid 60 mg tabletIndicatio ns:hypothyroidi sm Take [...] (08/16/2020): Added automatically from request for surgery [id number] Metastatic papillary carcinoma 08/16/2020 Overview (08/16/2020): Added automatically from request for surgery [id number] Thyroid cancer 04/28/2018 Cancer Staging:Pathologic stage from [...] on file Legal Sex Female 4:01 AM WHEAT INSPECTOR Gender Identity Not on file Sexual Orientation Not on file Obstetrics History Comments Hysterectomy 1989 Last Filed Vital Signs Vital Sign Reading Time Taken Comments Blood Pressure 120/59 09/13/2020 7:50 AM WHEAT INSPECTOR Pulse 60 09/13/2020 7:50 AM WHEAT INSPECTOR Temperature 36.6 C (97.8 F) 09/13/2020 7:50 AM WHEAT INSPECTOR Respiratory Rate 16 09/13/2020 7:50 AM WHEAT INSPECTOR Oxygen Saturation 97% 09/13/2020 7:50 AM WHEAT INSPECTOR Inhaled Oxygen Concentration - - Weight 80.8 [...] 09/12/2020 Influenza Vaccine (#1) 2025 Insurance MEDICARE [employer] [facility] MEDICARE [facility] MEDICARE [facility] Address: [address] [address] [place] [address] Advance Directives For more information, please contact: [phone] * Full Code (Latest Code Status on File) Date Activated Date Inactivated Comments 09/12/2020 3:13 PM 09/13/2020 3:52 PM Care Teams Chucking Lathe Operator Relationship Specialty Start Date End Date Elizabet Campos MD [address] [place] [address] PCP - General 04/27/18 Hayley Walsh MD [address] [place] [address] Referring Physician Internal Medicine 04/28/18
== END 2025-05-15 14:32 | disposition home or self-care (01) ==
LOC: CHSIMG 14:32
PROVIDERS: PCP Internal Medicine; Visit Provider Internal Medicine
DX: M25.552 Pain in left hip (principal); M25.551 Pain in right hip
CPT/HCPCS: 73521

== ENCOUNTER 2025-06-19 06:37 | Outpatient (CLI) | payer MEDICARE, OTHER, SELFPAY ==
--- NOTE | ~2025-06-19 | MR_ITS ---
EXAMINATION: MR hip RT wo con DATE: 06/19/2025 07:30 INDICATION: Right hip pain TECHNIQUE: Magnetic resonance imaging (MRI) of the right hip was performed without intravenous contrast. Sequences included full-field axial PD-weighted FS FSE and T1-weighted FSE, coronal of the pelvis with PD-weighted FS FSE, T2- weighted FSE and T1-weighted FSE, small field of view of the right hip with axial PD-weighted FS FSE, sagittal PD-weighted FS FSE, coronal PD-weighted FS FSE and coronal T2 weighted FSE. Additional radial T1-weighted FGR oriented orthogonal to the acetabular rim were obtained for evaluation of the labrum. COMPARISON: Right hip radiographs dated 05/15/2025 FINDINGS: Bones/labrum/cartilage: Alignment is normal. No pathologic marrow replacing process. Severe lower lumbosacral and moderate lumbar spondylosis. Severe osteoarthritis of the right hip with a full/near full-thickness cartilage loss at the superior to anterosuperior aspect of the joint space with moderate-sized marginal osteophyt es about the femoral head. There is degenerative tearing of the anterosuperior to superolateral right acetabular labrum. Although more limited evaluation on the larger crdvo-jt-ndxi imaging there appears to be a similar pattern of severe osteoarthritis at the left hip with subarticular cystlike change at the superior left acetabulum. There is prominent edema-like signal change from the apex of the left femoral head where there is subarticular linear low signal intensity with differential including osteonecrosis with subarticular fracture. There is additional edema at the anteroinferior aspect of the left sacral ala surrounding an additional low signal intensity nondisplaced insufficiency fracture. Moderate osteoarthritis at the bilateral sacroiliac joints. Fluid: There are relatively symmetric small bilateral hip joint effusions with associated synovitis. Soft tissues: Normal and symmetric muscle bulk and signal in the pelvis and visualized proximal thighs. The iliopsoas, gluteal and proximal hamstring tendons are normal. Bladder is normal. The uterus is not identified and has likely been surgically resected. Multiple diverticula along the sigmoid colon without adjac ent from trace stranding to suggest diverticulitis. Normal appendix. No pathologically enlarged pelvic/inguinal lymphadenopathy. IMPRESSION: 1. Nondisplaced likely insufficiency fracture at the anteroinferior left sacral ala. 2. Marrow edema surrounding a subarticular linear low signal intensity at the apex of the left femoral head which could represent either osteonecrosis or an additional nondisplaced insufficiency fracture. Assessment on the larger ltyfl-iw-twrh images is more limited than would be on a dedicated MRI of the left hip. 3. Severe osteoarthritis of the bilateral hips with small hip joint effusions and synovitis. 4. Severe lumbosacral and moderate lumbar spondylosis. Reviewed, dictated and finalized at location A. TATION OPERATOR TRANSFORMING IMPRESSION: 1. Nondisplaced likely insufficiency fracture at the anteroinferior left sacral ala. 2. Marrow edema surrounding a subarticular linear low signal intensity at the a pex of the left femoral head which could represent either osteonecrosis or an a dditional nondisplaced insufficiency fracture. Assessment on the larger field-o f-view images is more limited than would be on a dedicated MRI of the left hip. 3. Severe osteoarthritis of the bilateral hips with small hip joint effusions a nd synovitis. 4. Severe lumbosacral and moderate lumbar spondylosis.
--- OUTSIDE RECORDS SUMMARY | 2025-06-19 06:41 | XMS_ITS | Encounter Summary ---
Author Organization [facility] Healthcare Address [address] [place] [address] Care Team Providers Care Radio Interference Expert Name Role Phone Elizabet Campos MD Primary Care Provider + [phone] Isac Nolasco MD Unavailable [phone] Hayley Walsh MD Unavailable + [phone] Encounter Details Date Type Department Care Team (Late st Contact Info) Description 11/20/2020 Telephone [facility] [address] [place] [address] Sugey Shah, RT Social History [...] on file Legal Sex Female 4:01 AM DETECTIVE PRIVATE EYE Gender Identity Not on file Sexual Orientation Not on file documented as of this encounter Plan of Treatment Not on file documented as of this encounter Visit Diagnoses Not on filedocumented in this encounter Care Teams Radio Interference Expert Relationship Specialty Start Date End Date Elizabet Campos MD [address] [place] [address] PCP - General 04/27/18 Isac Nolasco MD [address] [address] Radiation Oncologist Radiation Oncology 04/27/1808/04/ 4 Hayley Walsh MD [address] [place] [address] Referring Physician Internal Medicine 04/28/18 documented as of this encounter
--- OUTSIDE RECORDS SUMMARY | 2025-06-19 06:41 | XMS_ITS | Clinical Summary ---
Author Organization [facility] Address [address] [place] [address] Care Team Providers Care Editor Managing Director Name Role Phone Elizabet Campos MD Primary Care Provider [phone] Hayley Walsh MD Unavailable [phone] Allergies Active Allergy Reactions Criticality Noted Date Comments Amoxicillin-Pot Clavulanate Hives Medium 05/29/20 20 Iodinated Contrast Media Hives Medium 08/30/2020 Levofloxacin Hives Medium 03/08/2018 Levothyroxine Hives Medium 07/14/2018 Sulfa (Sulfonamide Antibiotics) Hives Medium Medications omega 5-mri-wbo-fish oil 1,000 mg (120 mg-180 mg) capsuleIndicati [...] (six) hours as needed for pain Active [place] Thyroid 60 mg tabletIndicatio ns:hypothyroidi sm Take [...] (08/16/2020): Added automatically from request for surgery [id number] Metastatic papillary carcinoma 08/16/2020 Overview (08/16/2020): Added automatically from request for surgery [id number] Thyroid cancer 04/28/2018 Cancer Staging:Pathologic stage from [...] on file Legal Sex Female 4:01 AM ASSET PROTECTION GREETER Gender Identity Not on file Sexual Orientation Not on file Last Filed Vital Signs Vital Sign Reading Time Taken Comments Blood Pressure 120/59 09/13/2020 7:50 AM ASSET PROTECTION GREETER Pulse 60 09/13/2020 7:50 AM ASSET PROTECTION GREETER Temperature 36.6 C (97.8 F) 09/13/2020 7:50 AM ASSET PROTECTION GREETER Respiratory Rate 16 09/13/2020 7:50 AM ASSET PROTECTION GREETER Oxygen Saturation 97% 09/13/2020 7:50 AM ASSET PROTECTION GREETER Inhaled Oxygen Concentration - - Weight 80.8 [...] 09/12/2020 Influenza Vaccine (#1) 2025 Insurance MEDICARE [facility] CLAIMS MERGED WITH [facility] MEDICARE [facility] Address: [address] [address] [place] [address] [facility] MEDICARE [facility] Address: [address] [address] [place] [address] Advance Directives For more information, please contact: [phone] * Full Code (Latest Code Status on File) Date Activated Date Inactivated Comments 09/12/2020 3:13 PM 09/13/2020 3:52 PM Care Teams Editor Managing Director Relationship Specialty Start Date End Date Elizabet Campos MD [address] [place] [address] PCP - General 04/27/18 Hayley Walsh MD [address] [place] [address] Referring Physician Internal Medicine 04/28/18
--- OUTSIDE RECORDS SUMMARY | 2025-06-19 06:42 | XMS_ITS | Encounter Summary ---
Author Organization [facility] Address [address] [place] [address] Care Team Providers Care Negative Turner Name Role Phone Elizabet Campos MD Primary Care Provider + Encounter Details Date Type Department Care Team ([facility] Contact Info) Description 12/04/2020 Chart Note [facility] Radiation Therapy [address] [place] [address] [place] [address] [place] [address] Social History Tobacco Use Types [...] Upcoming Encounters Date Type Department Care Team ([facility] Contact Info) Description 10/16/2025 10:15 AM CDT Office Visit [facility] Oncology and Hematology - Ronny [address] [facility] [address] [place] [address] Hai Marroquin MD [address] [facility] [address] [place] [address] documented as of this encounter Visit Diagnoses Not on filedocumented in this encounter Care Teams Negative Turner Relationship Specialty Start Date End Date Elizabet Campos MD [address] [place] [address] PCP - General Internal Medicine 02/01/18 documented as of this encounter
--- OUTSIDE RECORDS SUMMARY | 2025-06-19 06:42 | XMS_ITS ---
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
--- OUTSIDE RECORDS SUMMARY | 2025-06-19 06:42 | XMS_ITS | Clinical Summary ---
Author Organization [facility] Address [address] [place] [address] [place] [address] Care Team Providers Care Vp Human Resources Name Role Phone Elizabet Campos MD Primary [...] tablet Take 200 mg by mouth. Active dyzgm-2-HXR-EPA -fish oil 1,000 mg Capsule Take 1 [...] Description 10/16/2025 10:15 AM CDT Office Visit [facility] Oncology and Hematology - [place] [address] [facility] [address] [place] [address] Hai Marroquin MD [address] [facility] [address] [place] [address] Health Maintenance Due Date Last Done Comments Pre-Diabetes and Diabetes Screening 1955 DTAP/TDAP/TD VACCINES (1 - Tdap) 1974 PNEUMOCOCCAL VACCINE 50+ YEA RS (1 of 2 - PCV) 1974 COLORECTAL SCREENING 2000 Colorectal Cancer Screening 2000 FIT-DNA Q 3 years 2000 FIT/FOBT Q 1 year 2000 Flex Sig/CT Colonography Q 5 years 2000 RSV VACCINE (60+ or ) (1 - Risk 50-74 years 1-dose series) 2005 ZOSTER VACCINE (1 of 2) 2005 INFLUENZA VACCINE (#1) 2025 BREAST CANCER SCREENING 10/26/2025 10/27/19, 10/26/2024, 10/25/2024, Additional history exists OSTEOPOROSIS SCREENING [...] Maintenance Insurance MEDICARE PART A AND B m-spatial Care Teams Vp Human Resources Relationship Specialty Start Date End Date Elizabet Campos MD [address] [place] [address] PCP - General Internal Medicine 02/01/18
== END 2025-06-19 06:38 | disposition home or self-care (01) ==
PROVIDERS: PCP Internal Medicine; Visit Provider Physician Assistant Surgical
DX: M25.551 Pain in right hip (principal)
CPT/HCPCS: 73721

== ENCOUNTER 2025-07-05 10:44 | Outpatient (CLI) | payer MEDICARE, OTHER, SELFPAY ==
--- NOTE | 2025-07-05 12:11 | ECG_ITS ---
Test Date: 2025-07-05 12:31:37 Measurements Intervals [place] Rate: 70 P: 7 FL: 123 QRS: 7 QRSD: 94 T: 30 QT: 389 QTc: 420 Interpretive Statements SINUS RHYTHM BASELINE ARTIFACT- I, II, III, AVR, AVL, AVF, V1-V2 NORMAL ECG No previous ECG available for comparison Electronically Signed On 07-05-2025 12:52:36 RUBBER BLOCK LAYER by Jamie Nick D.O.
--- OUTSIDE RECORDS SUMMARY | 2025-07-05 12:39 | XMS_ITS | Encounter Summary ---
Author Organization [facility] Address [address] [place] [address] Care Team Providers Care Steersman Name Role Phone Elizabet Campos MD Primary Care Provider + Encounter Details Date Type Department Care Team ([facility] Contact Info) Description 03/16/2018 Chart Note [facility] Radiation Therapy [address] [place] [address] [place] [address] [place] [address] Social History Tobacco Use Types Packs/Day Years Used Date Smoking Tobacco: Former Cigarettes 0 Q uit: 02/01/2002 Smokeless Tobacco: Never Alcohol [...] Campus Oncology and Hematology - [place] [address] [facility] [address] [place] [address] Hai Marroquin MD [address] [facility] [address] [place] [address] documented as of this encounter Visit Diagnoses Not on filedocumented in this encounter Care Teams Steersman Relationship Specialty Start Date End Date Elizabet Campos MD [address] [place] [address] PCP - General Internal Medicine 02/01/18 documented as of this encounter
--- OUTSIDE RECORDS SUMMARY | 2025-07-05 12:39 | XMS_ITS ---
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
--- OUTSIDE RECORDS SUMMARY | 2025-07-05 12:39 | XMS_ITS | Encounter Summary ---
Author Organization [facility] Address [address] [place] [address] Care Team Providers Care Forging Press Lever Tender Name Role Phone Elizabet Campos MD Primary Care Provider + Encounter Details Date Type Department Care Team (Late Contact Info) Description 12/04/2020 Chart Note [facility] Radiation Therapy [address] [place] [address] [place] [address] [place] [address] Social History Tobacco Use Types [...] Description 10/16/2025 10:15 AM CDT Office Visit [facility] Oncology and Hematology - Ronny [address] [facility] [address] [place] [address] Hai Marroquin MD [address] [facility] [address] [place] [address] documented as of this encounter Visit Diagnoses Not on filedocumented in this encounter Care Teams Forging Press Lever Tender Relationship Specialty Start Date End Date Elizabet Campos MD [address] [place] [address] PCP - General Internal Medicine 02/01/18 documented as of this encounter
--- OUTSIDE RECORDS SUMMARY | 2025-07-05 12:39 | XMS_ITS | Clinical Summary ---
Author Organization [facility] Address [address] [place] [address] [place] [address] Care Team Providers Care Wood Tile Installation Helper Name Role Phone Elizabet Campos MD [...] tablet Take 200 mg by mouth. Active tfpno-1-CAV-EPA -fish oil 1,000 mg Capsule Take 1 [...] Encounters Date Type Department Care Team Description 06/27/2025 External Device Data [facility] ABSTRACTION Provider, Abstract 05/02/2025 External Device Data [facility] ABSTRACTION Provider, [...] 0 Q uit: 02/01/2002 Smokeless Tobacco: Never Tobacco [...] Description 10/16/2025 10:15 AM CDT Office Visit [facility] Oncology and Hematology - [place] [address] [place] [address] Hai Marroquin MD [address] [facility] [address] [place] [address] Health Maintenance Due Date Last [...] Maintenance Insurance MEDICARE PART A AND B [employer] Care Teams Wood Tile Installation Helper Relationship Specialty Start Date End Date Elizabet Campos MD [address] [place] [address] PCP - General Internal Medicine 02/01/18
--- OUTSIDE RECORDS SUMMARY | 2025-07-05 12:39 | XMS_ITS | Encounter Summary ---
Author Organization [facility] Address [address] [place] [address] Care Team Providers Care Residency Director Name Role Phone Elizabet Campos MD Primary Care Provider [phone] Encounter Details Date Type Department Care Team (Late st Contact Info) Description 10/17/2017 Abstract [facility] CONVERSION [address] [place] [address] , Generic Conversion, Social History Tobacco Use [...] on filedocumented in this encounter Care Teams Residency Director Relationship Specialty Start Date End Date Elizabet Capmos MD [address] [place] [address] PCP - General INTERNAL MEDICINE 12/14/17 documented as of this encounter
--- OUTSIDE RECORDS SUMMARY | 2025-07-05 12:39 | XMS_ITS | Encounter Summary ---
Author Organization [facility] Address [address] [place] [address] Care Team Providers Care Legal Manager Name Role Phone Elizabet Campos MD Primary Care Provider + [phone] Isac Nolasco MD Unavailable [phone] Hayley Walsh MD Unavailable [phone] Encounter Details Date Type Department Care Team (Late st Contact Info) Description 11/20/2020 Telephone [facility] [address] [place] [address] Sugey Shah, RT Social History [...] on file Legal Sex Female 4:01 AM CONCRETE ENGINEER Gender Identity Not on file Sexual Orientation Not on file documented as of this encounter Plan of Treatment Not on file documented as of this encounter Visit Diagnoses Not on filedocumented in this encounter Care Teams Legal Manager Relationship Specialty Start Date End Date Elizabet Campos MD [address] [place] [address] PCP - General 04/27/18 Isac Nolasco MD [address] [address] Radiation Oncologist Radiation Oncology 04/27/1808/04/ 4 Hayley Walsh MD [address] [place] [address] Referring Physician Internal Medicine 04/28/18 documented as of this encounter
--- OUTSIDE RECORDS SUMMARY | 2025-07-05 12:39 | XMS_ITS | Clinical Summary ---
Author Organization [facility] Address [address] [place] [address] Care Team Providers Care Emergency Medicine Physician Name Role Phone Elizabet Camops MD Primary Care Provider [phone] Hayley Walsh MD Unavailable [phone] Allergies Active Allergy Reactions Criticality Noted Date Comments Amoxicillin-Pot Clavulanate Hives Medium 05/29/20 20 Iodinated Contrast Media Hives Medium 08/30/2020 Levofloxacin Hives Medium 03/08/2018 Levothyroxine Hives Medium 07/14/2018 Sulfa (Sulfonamide Antibiotics) Hives Medium Medications omega 9-boz-amx-fish oil 1,000 mg (120 mg-180 mg) capsuleIndicati [...] (six) hours as needed for pain Active [place] Thyroid 60 mg tabletIndicatio ns:hypothyroidi sm Take [...] (08/16/2020): Added automatically from request for surgery [id number] Metastatic papillary carcinoma 08/16/2020 Overview (08/16/2020): Added automatically from request for surgery [id number] Thyroid cancer 04/28/2018 Cancer Staging:Pathologic stage from [...] on file Legal Sex Female 4:01 AM MENSWEAR SALESPERSON Gender Identity Not on file Sexual Orientation Not on file Last Filed Vital Signs Vital Sign Reading Time Taken Comments Blood Pressure 120/59 09/13/2020 7:50 AM MENSWEAR SALESPERSON Pulse 60 09/13/2020 7:50 AM MENSWEAR SALESPERSON Temperature 36.6 C (97.8 F) 09/13/2020 7:50 AM MENSWEAR SALESPERSON Respiratory Rate 16 09/13/2020 7:50 AM MENSWEAR SALESPERSON Oxygen Saturation 97% 09/13/2020 7:50 AM MENSWEAR SALESPERSON Inhaled Oxygen Concentration - - Weight 80.8 [...] 09/12/2020 Influenza Vaccine (#1) 2025 Insurance MEDICARE [employer] [facility] CLAIMS [facility] MEDICARE [facility] MEDICARE Advance Directives For more information, please contact: [phone] * Full Code (Latest Code Status on File) Date Activated Date Inactivated Comments 09/12/2020 3:13 PM 09/13/2020 3:52 PM Care Teams Emergency Medicine Physician Relationship Specialty Start Date End Date Elizabet Campos MD [address] [place] [address] PCP - General 04/27/18 Hayley Walsh MD [address] [place] [address] Referring Physician Internal Medicine 04/28/18
--- OUTSIDE RECORDS SUMMARY | 2025-07-05 12:39 | XMS_ITS | Clinical Summary ---
Author Organization [facility] Address [address] [place] [address] Care Team Providers Care Museum Librarian Name Role Phone Elizabet Campos MD Primary Care Provider [phone] Social History Tobacco Use Types Packs/Day Years [...] Scan (General) 2020 COVID-19 Vaccine ( - 2024-2 6 season) 2025 Influenza Adult (#1) 2025 RSV Immunization or 60+ Years (1 - 1-dose 75+ series) 2030 Hepatitis A Vaccines Aged Out No long er eligible based on patient's age to complete this topic Meningococcal B Vaccine Aged Out No l onger eligible based on patient's age to complete this topic Meningococcal Vaccine Aged Out No nieves ross eligible based on patient's age to complete this topic RSV Immunizations Under 20 Months Aged Out No longer eligible based on patient's age to complete this topic Insurance MEDICARE [facility] Care Teams Museum Librarian Relationship Specialty Start Date End Date Elizabet Campos MD [address] [place] [address] PCP - General INTERNAL MEDICINE 12/14/17
[2025-07-05 12:54] LABS: Hematocrit 42.2 % (37.0-47.0); Hemoglobin 14.4 g/dL (12.0-15.0); Immature Granulocyte Percent A 0.1 % (0-0.5); Lymphocytes Absolute Auto 2.66 K/mm3 (0.9-3.2); Mean Corpuscular HGB Conc 34.1 g/dl (32-36); Mean Corpuscular Hemoglobin 31.1 pg (26-34); Mean Corpuscular Volume 91.1 fl (80-100); Nucleated Red Blood Cells Absolute Auto 0.000 K/mm3 (0.0-0.012); Nucleated Red Blood Cells Perc 0.0 % (0.0-0.2); Platelet Count Result 277 k/mm3 (150-375); Red Blood Count 4.63 M/mm3 (4.2-5.4); White Blood Count 7.4 K/mm3 (4.5-10.0)
[2025-07-05 13:16] LABS: Albumin Level 4.4 g/dL (3.5-5.1); Anion Gap 7 mmol/L (4-12); Blood Urea Nitrogen 19 mg/dL (7-17); Calcium 9.7 mg/dL (8.4-10.2); Carbon Dioxide 24 mmol/L (22-30); Chloride 106 mmol/L (98-107); Estimated Glomerular Filt Rate > 60; Glucose 97 mg/dL (65-110); Potassium 4.2 mmol/L (3.4-5.0); Sodium 137 mmol/L (137-145)
[2025-07-05 14:14] LABS: Hemoglobin A1C 5.8 % (<5.7)
== END 2025-07-05 10:45 | disposition home or self-care (01) ==
LOC: ANHSURGERY 11:03
PROVIDERS: PCP Internal Medicine; Visit Provider Orthopaedic Surgery
DX: M16.0 Bilateral primary osteoarthritis of hip (principal); Z01.818 Encounter for other preprocedural examination
CPT/HCPCS: 80048; 80307; 82040; 83036; 85025; 86850; 86900; 86901; 87081; 93005

== ENCOUNTER 2025-07-13 03:42 | Day surgery (SDC) | payer MEDICARE, OTHER, SELFPAY ==
[2025-07-05 11:16] VITALS: BP 143/86; PULSE 75; RESP 16; TEMP 36.9; O2SAT 98; BMI 30.2
--- NOTE | 2025-07-05 11:42 | PC.NURSE ---
[facility] has started construction of its new state of the art ER which will open Spring 2026. With this, we anticipate parking may be a challenge for some our surgical patients and families. Parking spaces are limited but are available for all Surgical, obstetrics, and ER patients sharing this lot. If you arrive and find you are having a hard time finding a parking space, please note that we understand the challenges, please drive around the hospital and park near Hospital Entrance 1. When you enter this entrance, you can ask a volunteer to direct or take you back to the surgical waiting area to check in. We appreciate everyone?s understanding of these expected challenges while we build for your future. Report to the Outpatient Waiting Room, entrance under the green pavilion located off [address], at time __6:00AM___ on date __07/13/25____. Planned Procedure Time: ___7:30AM ___.? Time changes happen often and if your time is changed the preop area will call you the afternoon before. - You and your visitor will be asked to self-screen and do not enter if you have any COVID symptoms. Please call surgeon if you need to reschedule. - A mask is optional within the hospital at this time. Patients may have clear liquids (water, carbonated beverages, clear teas, apple juice) until 3 hours prior to surgery (4:30AM) with a maximum of 20 ounces. - No food from midnight until time of surgery and no smoking, or chewing tobacco (or any form of nicotine). No chewing gum, candy or mints. Take only the following medications with a SIP of water on the morning of surgery: ____THYROID MEDICATION DO NOT STOP ANY OF YOUR OTHER PRESCRIPTION MEDICATIONS PRIOR TO SURGERY EXCEPT THE FOLLOWING Medications to discontinue per physician ___HOLD ALEVE(NSAIDS) AND ALL VITAMINS/SUPPLEMENTS 7 DAYS PRE-OP PER DR ROWE ___ Date to take last dose 07/05/25 Please no make-up, nail spanish, hairspray, perfume, deodorant, or body powder the day of surgery.? No jewelry (including any body piercings) or valuables the day of surgery, leave them at home.? Please take a shower or bath the night before, or the morning of, surgery with an antibacterial soap.? Wear comfortable, loose fitting clothing.? - Jewelry must be removed prior to entering the operating room.? Rings and piercings that are not removed may be cut off. - The hospital will not accept responsibility for valuables.? - Please leave all valuables, including medications, at home the day of surgery. If you are going home after surgery, a licensed driver courier must drive you home.? - NO public transportation without another adult if you receive anesthesia. - We recommend that an adult stay with you for 24 hours following discharge. - We also recommend that you do not drive, make important decision, drink alcoholic beverages, or take any drugs that were not prescribed by your health care provider for at least 24 hours after your discharge time. Follow any additional instructions given to you from your surgeon. Telephone instructions given to ____PATIENT & FRIEND and asked if any additional questions and then verbalized understanding. Patient advised to call surgeon office or pre surgery nurse liaison [phone] if any additional questions.
--- NOTE | 2025-07-10 12:05 | PM.IMHP2 ---
H&P: HPI History of Present Illness Date/Time: 07/10/25 12:05 Chief Complaint: DJD right hip Narrative: 70-year-old male presents today for a right anterior total hip arthroplasty. Patient having symptoms in the hip for 2 years. Progressively got worse. At this point is affecting daily lifestyle. She has difficulty taking talks for walk. She has pain getting in car or trying to go up stairs. She has difficulty putting shoes and socks on. She feels the pain in the anterior lateral aspect of the right hip. Patient has taken uddm-aum-xhtnbji anti-inflammatories, Aleve, which does seem to help somewhat but does her symptoms entirely patient has severe osteoarthritis in the right hip. She feels this point she would rather proceed with total hip arthroplasty rather than continue nonsurgical treatment. Physical exam 70-year-old female alert pleasant. BMI is 30.2. Skin around her right hip and groin crease are all normal. She has a 20 degree flexion contracture of the hip when she is lying supine room flexion of the hip is to 85 which causes posterior lateral hip pain. External rotation to 10 internal rotation is her. Stinchfield maneuver causes her posterior lateral hip pain. She has normal abduction strength lateral position, no tenderness over the greater trochanter. 2+ posterior tibial artery pulse palpable. Normal sensation right lower extremity. No edema in lower extremity. X-rays: X-rays right hip demonstrate moderate narrowing the joint space with advanced pronounced hypertrophic changes of the femoral heads. On the lateral view she has dpqy-cv-svpb osteoarthritis in the posterior aspect of the hip Impression: 70-year-old female has severe osteoarthritis right hip with rather severe symptoms and very limited range motion the right hip. Patient feels symptoms affecting her daily. She feels at this point she is ready proceed with total hip arthroplasty rather continue nonsurgical treatment. Surgical procedures well as the risks complications were discussed in detail all questions were answered and we will proceed. She will see her primary care doctor for pre-surgical clearance. She will avoid any Aleve or ibuprofen products 1 week prior to surgery. She will also stop her vitamin D, fish oil so, turmeric 1 week prior to surgery. She see her care doctor for pre-surgical clearance. Her nasal swab was negative. Hemoglobin 14.4 platelets 277. Chem panel was within normal limits creatinine 0 point Review of Systems Review of Systems: All systems reviewed & are unremarkable except as noted in HPI and below PMFSH Past Medical History Medical History Arthritis GERD (gastroesophageal reflux disease) High cholesterol Asthma Thyroid disease Cholecystectomy planned Thyroid cancer Surgical History Surgical History Hx of laparoscopy LAP enterolysis on 04/29/22 History of cholecystectomy H/O thyroidectomy H/O bilateral oophorectomy Hx of breast reduction, elective H/O: hysterectomy Family History Family History Other Diabetes mellitus Family history of cardiovascular disease Family history of congestive heart failure Family history of lung disease Family history of thyroid disease Hypertension Social History Social History (Updated 07/05/25 @ 13:11 by Sarah Hardy CMA) Smoking packs per day: 0.5 Smoking cigarettes per day: 10.0 Years smoked: 15 Smoking pack-years: 7.50 Smoking status: Former smoker Tobacco type: cigarettes Smoking end date: 01/31/23 Alcohol intake: current Drinks per week: 1 Alcohol use details: glass of wine Substance use: never Substance use type: does not use Current Housing: Decline to Answer Concerned About Future Housing: Decline to Answer Difficulty Paying Gas/Electric Bills: Decline to Answer Difficulty Paying for Meds: Decline to Answer Currently Unemployed: Decline to Answer Education: Decline to Answer Difficulty w/ Childcare or Family Care: Decline to Answer Living arrangements: alone Occupation/Education: retired Additional occupation/education comments: Hairdresser Spiritual care concerns: No Meds Home Medications and Allergies Home Medications ?Medication ?Instructions ?Recorded ?Confirmed ?Type ascorbic acid (vitamin C) 1,000 mg 1 g PO DAILY 04/24/22 07/05/25 History tablet (Vitamin C) calcium carbonate (Calcium 600) 600 mg PO DAILY 04/24/22 07/05/25 History cyanocobalamin (vitamin B-12) 5,000 mcg PO DAILY 04/24/22 07/05/25 History 5,000 mcg capsule flaxseed 1,000 mg capsule 1,000 mg PO DAILY 04/24/22 07/05/25 History omega-3 fatty acids 1,000 mg PO DAILY 04/24/22 07/05/25 History peppermint oil 0.2 mL 0.2 ml PO DAILY 04/24/22 07/05/25 History capsule,delayed release turmeric 400 mg capsule 400 mg PO DAILY 04/24/22 07/05/25 History vitamin E 400 unit tablet 268 mg PO DAILY 04/24/22 07/05/25 History DoTerra probiotic 1 cap BYMOUTH DAILY 04/28/24 07/05/25 History Tirosint 88 mcg capsule 88 mcg PO DAILY #90 caps 09/06/24 07/05/25 Rx (levothyroxine) biotin 5 mg capsule 5 mg PO DAILY 03/14/25 07/05/25 History lactobacillus combination no.4 3 3,000 mmu cells PO DAILY 07/05/25 07/05/25 History billion cell capsule (Probiotic) naproxen sodium 220 mg tablet 440 mg PO Q8-12H PRN pain 07/05/25 07/05/25 History (Aleve) Allergies Allergy/AdvReac Type Severity Reaction Status Date / Time levofloxacin Allergy Mild HIVES Verified 07/05/25 12:16 levothyroxine sodium Allergy Unknown hives Verified 07/05/25 12:16 Sulfa (Sulfonamide Allergy Unknown hives Verified 07/05/25 12:16 Antibiotics) clavulanic acid (From Allergy Hives Verified 07/05/25 12:16 Augmentin) Iodinated Contrast Media Allergy Hives Verified 07/05/25 12:16 Penicillins Allergy Hives Verified 07/05/25 12:16 Exam Resp: Auscultation: clear to auscultation bilaterally Cardio: Rate: regular rate Rhythm: regular rhythm Assessment and Plan Assessment and plan (1) Degenerative joint disease of right hip: Code(s): M16.11 - Unilateral primary osteoarthritis, right hip Status: Acute
[2025-07-13] VITALS (12 sets, daily range): BP systolic 110–155; BP diastolic 60–80; PULSE 60–88; RESP 12–20; TEMP 36.1–36.3; O2SAT 90–100
--- NOTE | ~2025-07-13 | XR_ITS ---
EXAMINATION: XR hip RT 1V w AP pelvis DATE: 07/13/2025 11:32 INDICATION: Surgery TECHNIQUE: Right hip and pelvic x-rays were obtained. COMPARISON: None. FINDINGS: Patient status post right total hip arthroplasty with bones and hardware in good anatomic alignment. Advanced degenerative changes of the left hip also incidentally IMPRESSION: 1. As above. Reviewed, dictated and finalized at location A. HT RECORDER IMPRESSION: 1. As above.
--- NOTE | ~2025-07-13 | XR_ITS ---
EXAM/PROCEDURE: XR pelvis 1-2V HISTORY: PRE-OP, RIGHT TOTAL HIP ARTHROPLASTY ANTERIOR APPROACH COMPARISON: July 05, 2025 TECHNIQUE: AP pelvis FINDINGS: Advanced osteoarthritic degenerative changes in both hips right worse than left. No gross acute or aggressive bony or soft tissue process seen. IMPRESSION: Advanced degenerative changes in the hips right worse than left. Reviewed, dictated and finalized at location A. ATRIC CARDIOLOGIST
--- NOTE | ~2025-07-13 | XR_ITS ---
EXAM/PROCEDURE: XR surgery orthopedic HISTORY: RIGHT TOTAL HIP ARTHROPLASTY ANTERIOR APPROACH COMPARISON: None available. TECHNIQUE: Fluoroscopic images for right hip arthroplasty Fluoroscopy time: A 46.1 seconds Dose: 18.32 mGy IMPRESSION: Fluoroscopic images provided for surgical guidance. No radiologist present. See also operative/surgical notes for complete evaluation. Reviewed, dictated and finalized at location A. [facility] NURSE
--- OUTSIDE RECORDS SUMMARY | 2025-07-13 03:44 | XMS_ITS | Encounter Summary ---
Author Organization [facility] Address [address] [place] [address] Care Team Providers Care Dredge Master Name Role Phone Elizabet Campos MD Primary Care Provider + Encounter Details Date Type Department Care Team ([facility] Contact Info) Description 03/16/2018 Chart Note [facility] Radiation Therapy [address] [place] [address] [place] [address] [place] [address] Social History Tobacco Use Types [...] Description 10/16/2025 10:15 AM CDT Office Visit [facility] Oncology and Hematology - [place] [address] [facility] [address] [place] [address] Hai Marroquin MD [address] [facility] [address] [place] [address] documented as of this encounter Visit Diagnoses Not on filedocumented in this encounter Care Teams Dredge Master Relationship Specialty Start Date End Date Elizabet Campos MD [address] [place] [address] PCP - General Internal Medicine 02/01/18 documented as of this encounter
--- OUTSIDE RECORDS SUMMARY | 2025-07-13 03:44 | XMS_ITS | Clinical Summary ---
Author Organization [facility] Address [address] [place] [address] Care Team Providers Care Fire Dispatcher Name Role Phone Elizabet Campos MD Primary Care Provider [phone] Social History Tobacco Use Types Packs/Day Years [...] Insurance MEDICARE [facility] Care Teams Fire Dispatcher Relationship Specialty Start Date End Date Elizabet Campos MD [address] [place] [id number] PCP - General INTERNAL MEDICINE 12/14/17
--- OUTSIDE RECORDS SUMMARY | 2025-07-13 03:46 | XMS_ITS | Encounter Summary ---
Author Organization [facility] Address [address] [place] [address] Care Team Providers Care Statistical Typist Name Role Phone Elizabet Campos MD Primary Care Provider [phone] Encounter Details Date Type Department Care Team (Late st Contact Info) Description 10/17/2017 Abstract [facility] CONVERSION [address] [place] [address] , Generic Conversion, Social History Tobacco Use [...] on filedocumented in this encounter Care Teams Statistical Typist Relationship Specialty Start Date End Date Elizabet Campos MD [address] [place] [address] PCP - General INTERNAL MEDICINE 12/14/17 documented as of this encounter
--- OUTSIDE RECORDS SUMMARY | 2025-07-13 03:46 | XMS_ITS | Clinical Summary ---
Author Organization [facility] Address [address] [place] [address] [place] [address] Care Team Providers Care Cutter Aluminum Sheet Name Role Phone Elizabet Campos MD Primary [...] tablet Take 200 mg by mouth. Active boahw-1-WAD-EPA -fish oil 1,000 mg Capsule Take 1 [...] Description 10/16/2025 10:15 AM CDT Office Visit [facility] Oncology and Hematology - [address] [place] [address] Hai Marroquin MD [address] [facility] [address] [place] [address] Health Maintenance Due Date Last [...] Maintenance Insurance MEDICARE PART A AND B [employer] Care Teams Cutter Aluminum Sheet Relationship Specialty Start Date End Date Elizabet Campos MD [address] [place] [address] PCP - General Internal Medicine 02/01/18
--- OUTSIDE RECORDS SUMMARY | 2025-07-13 03:46 | XMS_ITS | Clinical Summary ---
Author Organization [facility] Address [address] [place] [address] Care Team Providers Care Security Test Engineer Name Role Phone Elizabet Campos MD Primary Care Provider [phone] Hayley Walsh MD Unavailable [phone] Allergies Active Allergy Reactions Criticality Noted Date Comments Amoxicillin-Pot Clavulanate Hives Medium 05/29/20 20 Iodinated Contrast Media Hives Medium 08/30/2020 Levofloxacin Hives Medium 03/08/2018 Levothyroxine Hives Medium 07/14/2018 Sulfa (Sulfonamide Antibiotics) Hives Medium Medications omega 3-vhf-wad-fish oil 1,000 mg (120 mg-180 mg) capsuleIndicati [...] (six) hours as needed for pain Active [place] Thyroid 60 mg tabletIndicatio ns:hypothyroidi sm Take [...] (08/16/2020): Added automatically from request for surgery [id number] Metastatic papillary carcinoma 08/16/2020 Overview (08/16/2020): Added automatically from request for surgery [id number] Thyroid cancer 04/28/2018 Cancer Staging:Pathologic stage from [...] on file Legal Sex Female 4:01 AM TOLL PATROLMAN Gender Identity Not on file Sexual Orientation Not on file Last Filed Vital Signs Vital Sign Reading Time Taken Comments Blood Pressure 120/59 09/13/2020 7:50 AM TOLL PATROLMAN Pulse 60 09/13/2020 7:50 AM TOLL PATROLMAN Temperature 36.6 C (97.8 F) 09/13/2020 7:50 AM TOLL PATROLMAN Respiratory Rate 16 09/13/2020 7:50 AM TOLL PATROLMAN Oxygen Saturation 97% 09/13/2020 7:50 AM TOLL PATROLMAN Inhaled Oxygen Concentration - - Weight 80.8 [...] 09/12/2020 Influenza Vaccine (#1) 2025 Insurance MEDICARE [employer] [facility] CLAIMS [facility] MEDICARE [facility] MEDICARE Advance Directives For more information, please contact: [phone] * Full Code (Latest Code Status on File) Date Activated Date Inactivated Comments 09/12/2020 3:13 PM 09/13/2020 3:52 PM Care Teams Security Test Engineer Relationship Specialty Start Date End Date Elizabet Campos MD [address] [place] [address] PCP - General 04/27/18 Hayley Walsh MD [address] [place] [address] Referring Physician Internal Medicine 04/28/18
--- OUTSIDE RECORDS SUMMARY | 2025-07-13 03:46 | XMS_ITS | Encounter Summary ---
Author Organization [facility] Address [address] [place] [address] Care Team Providers Care Pneumatic Hoist Operator Name Role Phone Elizabet Campos MD Primary Care Provider + Encounter Details Date Type Department Care Team (Late Contact Info) Description 12/04/2020 Chart Note [facility] Radiation Therapy [address] [place] [address] [place] [address] [place] [address] Social History Tobacco Use Types [...] Description 10/16/2025 10:15 AM CDT Office Visit [facility] Oncology and Hematology - Ronny [address] [facility] [address] [place] [address] Hai Marroquin MD [address] [facility] [address] [place] [address] documented as of this encounter Visit Diagnoses Not on filedocumented in this encounter Care Teams Pneumatic Hoist Operator Relationship Specialty Start Date End Date Elizabet Campos MD [address] [place] [address] PCP - General Internal Medicine 02/01/18 documented as of this encounter
--- OUTSIDE RECORDS SUMMARY | 2025-07-13 03:46 | XMS_ITS ---
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
--- OUTSIDE RECORDS SUMMARY | 2025-07-13 03:46 | XMS_ITS | Encounter Summary ---
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
[2025-07-13] MEDS: ACETAMINOPHEN 500 MG TABLET 1000 MG PO (06:24)
[2025-07-13] MEDS: LACTATED RINGERS 1,000 ML 30 ML IV CONT ×2 (06:30→11:25)
[2025-07-13] MEDS: TRANEXAMIC ACID 1,000MG/ISO100 1,000 MG/100 ML BAG 200 MG IVPB (06:31)
[2025-07-13] MEDS: VANCOMYCIN 1,250 MG/NS 250 ML BAG 166.67 MG IVPB (06:34)
--- NOTE | 2025-07-13 07:12 | WPDHPUPDATE1 ---
History and Physical Update Update Date/Time: 07/13/25 07:12 History and Physical has been reviewed, including an updated exam of the patient. There are NO changes in the patient's condition. Risks, benefits, and alternatives have been discussed and questions answered. Patient agrees to proceed with procedure.
--- NOTE | 2025-07-13 07:17 | WPDANESEPPF ---
Anes - Initial Pre Proc Eval Procedure: Operation Date: 07/13/25 07:30 Proposed Procedures p Right Total Hip Arthroplasty, Direct Anterior Approach - Myron Davis MD Date/Time: 07/13/25 07:17 Surgeon: Myron Davis MD Pre Op Diagnosis: OA right hip Patient Data Age: 70 Gender: F Height: 1.6 m Weight: 76.9 kg Last Vital Signs Temp 97.3 F L 07/13/25 06:05 Pulse 69 07/13/25 06:05 Resp 20 07/13/25 06:05 BP 149/80 H 07/13/25 06:05 Pulse Ox 98 07/13/25 06:05 O2 Del Method Room Air 07/13/25 06:05 Allergies Allergy/AdvReac Type Severity Reaction Status Date / Time levofloxacin Allergy Mild HIVES Verified 07/13/25 06:20 levothyroxine sodium Allergy Unknown hives Verified 07/13/25 06:20 Sulfa (Sulfonamide Allergy Unknown hives Verified 07/13/25 06:20 Antibiotics) clavulanic acid (From Allergy Hives Verified 07/13/25 06:20 Augmentin) Iodinated Contrast Media Allergy Hives Verified 07/13/25 06:20 Penicillins Allergy Hives Verified 07/13/25 06:20 Home Medications ?Medication ?Instructions ?Recorded ?Confirmed ?Type ascorbic acid (vitamin C) 1,000 mg 1 g PO DAILY 04/24/22 07/13/25 History tablet (Vitamin C) calcium carbonate (Calcium 600) 600 mg PO DAILY 04/24/22 07/13/25 History cyanocobalamin (vitamin B-12) 5,000 mcg PO DAILY 04/24/22 07/13/25 History 5,000 mcg capsule flaxseed 1,000 mg capsule 1,000 mg PO DAILY 04/24/22 07/13/25 History omega-3 fatty acids 1,000 mg PO DAILY 04/24/22 07/13/25 History peppermint oil 0.2 mL 0.2 ml PO DAILY 04/24/22 07/13/25 History capsule,delayed release turmeric 400 mg capsule 400 mg PO DAILY 04/24/22 07/13/25 History vitamin E 400 unit tablet 268 mg PO DAILY 04/24/22 07/13/25 History DoTerra probiotic 1 cap BYMOUTH DAILY 04/28/24 07/05/25 History Tirosint 88 mcg capsule 88 mcg PO DAILY #90 caps 09/06/24 07/13/25 Rx (levothyroxine) biotin 5 mg capsule 5 mg PO DAILY 03/14/25 07/13/25 History lactobacillus combination no.4 3 3,000 mmu cells PO DAILY 07/05/25 07/13/25 History billion cell capsule (Probiotic) naproxen sodium 220 mg tablet 440 mg PO Q8-12H PRN pain 07/05/25 07/13/25 History (Aleve) Patient hx anesthesia problems: post op nausea/vomiting Family hx anesthesia problems: none Results Review: All pre-operative results and documents have been reviewed as part of the pre-operative evaluation. [facility] Past Medical History Medical History Arthritis GERD (gastroesophageal reflux disease) High cholesterol Asthma Thyroid disease Cholecystectomy planned Thyroid cancer Surgical History Surgical History Hx of laparoscopy LAP enterolysis on 04/29/22 History of cholecystectomy H/O thyroidectomy H/O bilateral oophorectomy Hx of breast reduction, elective H/O: hysterectomy Family History Family History Other Diabetes mellitus Family history of cardiovascular disease Family history of congestive heart failure Family history of lung disease Family history of thyroid disease Hypertension Social History Social History (Updated 07/05/25 @ 13:11 by Sarah Hardy CMA) Smoking packs per day: 0.5 Smoking cigarettes per day: 10.0 Years smoked: 15 Smoking pack-years: 7.50 Smoking status: Former smoker Tobacco type: cigarettes Smoking end date: 01/31/23 Alcohol intake: current Drinks per week: 1 Alcohol use details: glass of wine Substance use: never Substance use type: does not use Current Housing: Decline to Answer Concerned About Future Housing: Decline to Answer Difficulty Paying Gas/Electric Bills: Decline to Answer Difficulty Paying for Meds: Decline to Answer Currently Unemployed: Decline to Answer Education: Decline to Answer Difficulty w/ Childcare or Family Care: Decline to Answer Living arrangements: alone Occupation/Education: retired Additional occupation/education comments: [employer] Spiritual care concerns: No Anes - Eval Final PreProcedure Day of Procedure 07/13/25 07:17 Patient weight: obese Heart: regular rate and rhythm Lungs: clear to auscultation Airway: Mallampati scale class II Neurological: alert and oriented Last oral intake: >/= 8 hours ASA classification: III Emergent: no Anesthetic plan: proceed Anesthesia type and monitoring: general ETT and standard monitoring Results Review: All pre-operative results and documents have been reviewed as part of the pre-operative evaluation. Informed Consent: The patient's anesthetic plan and its attendant risks and benefits were discussed with the patient/family/POA. Questions were solicited and answers provided to the satisfaction of the patient/family/POA.
[2025-07-13] MEDS: SCOPOLAMINE 1 MG PATCH 1 PATCH TRANSDERM (07:24)
[2025-07-13] MEDS: ceFAZolin 2 GM in SODIUM CHLORIDE 0.9% IV 50 ML 100 ML IVPB ×3 (07:30→23:33)
[2025-07-13] MEDS: SODIUM CHLORIDE 0.9% IV 37.7 ML, MORPHINE SULFATE INJ (*CRX) 2 MG, ROPivacaine HCL 1% 2... INFILTRATE (07:30)
[2025-07-13] MEDS: TRANEXAMIC ACID 1,000 MG/10 ML AMPUL 1000 MG IV PUSH (10:40)
[2025-07-13] MEDS: KETOROLAC 15 MG/ML VIAL (*BKC) 7.5 MG IV PUSH ×3 (10:53→23:34)
--- NOTE | 2025-07-13 11:08 | W.PM.PROC2 ---
Procedure Note - Detailed Date of Procedure 07/13/25 Pre-op Diagnosis OA right hip Post-op Diagnosis Same Procedure Performed Right total hip arthroplasty, direct anterior approach Surgeon Myron Davis MD Woodworking Machinist Jayy Anesthesia General Description of Procedure Patient was brought to the operating room and general anesthesia was administered. The feet were padded boots applied SCDs applied in running during the procedure she was transferred to the [facility] [place] table. I did obtain an AP pelvis with optimal positioning as preop AP pelvis showed marked asymmetry of the lesser trochanters relative to the ischial tuberosities and special warfare operator foramina. The intraoperative AP pelvis at the same findings validating the preoperative templating. The right hip was prepped draped usual fashion. She received 2 g of Ancef weight based vancomycin 1 g of TXA preoperatively. A 10 cm longitudinal incision was made starting 2.5 cm lateral to the ASIS. Dissection was carried down to the fascia covering tensor fascia sasha which was prominently thin. The fascia sasha was elevated off the anterior 50% TFL muscle interval between TFL and rectus femoris developed. Crossing branches of ascending lateral femoral circumflex vessels were ligated with suture divided. Ileal capsule layers elevated off the anterior capsule in anteromedial retractor placed. The hip abducted and the the residuals of the gluteus minimus were elevated off the lateral capsule. The gluteus minimus was very atrophic and much of it was replaced by fat. The gluteus medius however was in excellent condition. Inverted T capsulotomy was performed. Femoral neck osteotomy made according to preoperative templating. She had very large peripheral osteophytes around the femoral head and also has osteophytes around the acetabulum and her hip was very stiff her flexion contracture and this made extraction of the femoral head difficult. This was accomplished by debriding the osteophytes circumferentially around the femoral head 1st and that allowed the head to be extracted without difficulty. It measured about 43 mm on the back table. Acetabulum was exposed. Residual labral tissue on the circumferential acetabular osteophyte was excised. Intraoperative fluoroscopic views the femoral neck cut showed that we could remove another 5 mm of medial femoral neck which was performed to improve exposure and access to the acetabulum. The hip was externally rotated extended and the lateral capsular insertion at the greater trochanter was released and the interval between conjoined tendon and piriformis incised which allowed the conjoined tendon to recess a bit. We did not need to flip the piriformis tendon. This was left intact. With the leg back in the horizontal position traction external rotation acetabulum was exposed. We medialized to the medial wall with a 40 mm in gradually reamed up to 46 mm which gave peripheral contact the anteriorly and posteriorly at the equator. The cancellous bone was somewhat soft but the peripheral bone was very dense and solid. The 46 trial sat nicely with a snug fit. We impacted the size 46 emphasis cup which has outer diameter of 46.5 mm and this seated fully with a snug fit. A single screw was placed into the ilium which obtained excellent purchase and the 32 inner diameter liner was placed without difficulty. The cup was impacted at 40? of abduction and anteversion matching her anatomy. We then carefully remove the protruding osteophytes lateral to the the rim of the acetabular shell. The leg was extended externally rotated with the table hook in place for elevation. Proximal femur was broached up to a size 4 which gave torsional stability. The the we trialed with the high offset neck +1 and trialed. The intraoperative fluoro suggested we were few mm longer than our preoperative plan and soft tissue tension was a little more than typical. The therefore we countersunk the 4 broach another 3 or 3.5 mm and on read trialing we had very appropriate soft tissue tension with ample play the and leg lengths and offset looked appropriate fluoroscopic evaluation. We calcar planed the femoral neck and the similar to the acetabulum the cancellous bone of the femoral neck was relatively soft but she had hypertrophic thick medial calcar bone. Torsional stability of the broach was confirmed. The size 4 Actis stem with high offset was chosen after irrigation canal the stem was inserted and seated fully on the calcar without difficulty. No cracks. We trialed 1 more time with +1 and there was appropriate stability. The real +1 ceramic 32 mm head was impacted on the clean and dried trunnion after thorough irrigation of the wound with antibiotic solution. Hip reduced stability reconfirmed intraoperative x-ray with fluoro showed no radiographic complication. The superior limb of the capsule was reapproximated with 2. Vicryl. Local anesthetic cocktail injected in the periarticular soft tissues and hemostasis achieved. Cell Saver collected only 200 cc. They did not have enough to return any. I estimated total blood loss 250. Two additional g of Ancef given time wound closure. 1 g TXA given. After irrigation of the wound the thin fascia was reapproximated with 1. Vicryl. A drain placed deep in the subcutaneous layer skin closed with 2 subcutaneous Vicryl and glue. There were no complications he was transferred to postop recovery room good condition. Weight bearing as tolerated will be allowed postoperatively as her bone quality seemed very sufficient. JOANA Billing Surgery - Charge Forward: Surgery Billing (Right total hip replacement)
--- NOTE | 2025-07-13 11:34 | PM.OP ---
Procedure Note - Brief Procedure Note - Brief Date of procedure: 07/13/25 OA right hip Procedure performed: Right anterior total hip arthroplasty Surgeon: Eran Bah PA-C Findings: 70-year-old female underwent right anterior total hip arthroplasty on 07/13. I was involved in the procedure including positioning the patient on the OR table and 1st assisting through the time surgery. Total time spent was 3-1/2 hours
[2025-07-13] MEDS: fentaNYL CITRATE INJ (*CRX) 100 MCG/2 ML VIAL 25 MCG IV PUSH ×4 (12:02→12:43)
--- NOTE | 2025-07-13 12:55 | PC.NURSE ---
This patient, Marley Stephenson, was admitted to [facility] Surg Room 317-02 at 1255. Patient/family oriented to hospital policies and general routines including ID bracelet, bed and alarms, visiting hours, pain management, procedures, bathroom and other care routines, personal items, smoking policy, room service/diet, and visiting hours. Information on how to activate the Rapid Response Team has been discussed. Patient/Family are encouraged to report perceived risks to care and to ask questions if they do not understand what they are told or what they should do.
[2025-07-13] MEDS: oxyCODONE HCL (*CRX) 5 MG TAB IR PO ×3 (13:49→20:47)
[2025-07-13] MEDS: ACETAMINOPHEN 325 MG TABLET 650 MG PO ×2 (13:50→17:08)
[2025-07-13] MEDS: SODIUM CHLORIDE 0.9% IV 1,000 ML 125 ML IV CONT (13:53)
[2025-07-13] MEDS: ONDANSETRON INJ 4 MG/2 ML VIAL IV PUSH (14:00)
[2025-07-13] MEDS: VANCOMYCIN HCL 1,000 MG in SODIUM CHLORIDE 0.9% IV 250 ML 250 MG IVPB (18:35)
[2025-07-13] MEDS: SENNA/DOCUSATE SODIUM TABLET 2 TAB PO (20:47)
[2025-07-13] MEDS: FAMOTIDINE 20 MG TABLET PO (20:47)
[2025-07-14 02:29] VITALS: BP 120/60; PULSE 61; RESP 14; TEMP 36.6; O2SAT 96
[2025-07-14] MEDS: oxyCODONE HCL (*CRX) 5 MG TAB IR PO ×2 (05:03→09:32)
[2025-07-14 05:52] VITALS: BP 118/59; PULSE 76; RESP 16; TEMP 36.4; O2SAT 94
[2025-07-14 06:19] LABS: Hematocrit 31.5 % (37.0-47.0); Hemoglobin 10.6 g/dL (12.0-15.0); Immature Granulocyte Percent A 0.5 % (0-0.5); Lymphocytes Absolute Auto 1.65 K/mm3 (0.9-3.2); Mean Corpuscular HGB Conc 33.7 g/dl (32-36); Mean Corpuscular Hemoglobin 32.0 pg (26-34); Mean Corpuscular Volume 95.2 fl (80-100); Nucleated Red Blood Cells Absolute Auto 0.000 K/mm3 (0.0-0.012); Nucleated Red Blood Cells Perc 0.0 % (0.0-0.2); Platelet Count Result 202 k/mm3 (150-375); Red Blood Count 3.31 M/mm3 (4.2-5.4); White Blood Count 11.7 K/mm3 (4.5-10.0)
[2025-07-14] MEDS: VANCOMYCIN HCL 1,000 MG in SODIUM CHLORIDE 0.9% IV 250 ML 250 MG IVPB (06:28)
[2025-07-14] MEDS: LEVOTHYROXINE SODIUM 88 MCG TABLET PO (06:32)
[2025-07-14 06:39] LABS: Anion Gap 3 mmol/L (4-12); Blood Urea Nitrogen 19 mg/dL (7-17); Calcium 8.7 mg/dL (8.4-10.2); Carbon Dioxide 23 mmol/L (22-30); Chloride 110 mmol/L (98-107); Estimated CRCL calculation 45 ml/min; Estimated Glomerular Filt Rate 54; Glucose 112 mg/dL (65-110); Potassium 4.0 mmol/L (3.4-5.0); Sodium 136 mmol/L (137-145)
--- NOTE | 2025-07-14 07:14 | P.PNOP_ITS ---
Subjective Subjective Date/Time Seen: 07/14/25 07:14 Interval history: Postop day 1: Patient is alert. She is afebrile vital signs are stable. Drain is out dressing has been changed. Dressing is dry. Neurovascularly she is intact. Patient states she was up multiple times yesterday walking with therapy as well as going to the restroom. She tolerated all this well. Pain overall is very well controlled. She does state that the proximal thigh is little bit sensitive to the touch but other than that she feels she is doing well. Morning labs are noted. Hemoglobin 10.7. She had a slight rise in her creatinine. Overall patient is doing well. She is anxious to go home. She will work with therapy again this morning and then once IV antibiotics been completed she will be discharged to home late this morning. Objective Data Vital Signs Vital Signs: Vital Signs - 24 hr 07/13/25 11:25 07/13/25 11:30 07/13/25 11:45 Temperature 97.3 F L Pulse Rate 87 87 88 Respiratory Rate 16 13 13 Blood Pressure 155/79 H 146/75 H 138/71 Pulse Oximetry 100 100 97 Oxygen Delivery Simple Face Mask Simple Face Mask Room Air Oxygen Flow Rate 8 8 07/13/25 12:00 07/13/25 12:15 07/13/25 12:30 Temperature Pulse Rate 85 84 81 Respiratory Rate 12 15 Blood Pressure 118/73 110/66 123/72 Pulse Oximetry 94 94 94 Oxygen Delivery Room Air Room Air Room Air Oxygen Flow Rate 07/13/25 12:39 07/13/25 12:59 07/13/25 13:29 Temperature 97.2 F L 97.2 F L Pulse Rate 70 78 62 Respiratory Rate 14 14 14 Blood Pressure 139/71 121/69 116/60 Pulse Oximetry 95 90 94 Oxygen Delivery Oxygen Flow Rate 07/13/25 13:33 07/13/25 14:53 07/13/25 17:50 Temperature 97 F L Pulse Rate 86 Respiratory Rate 14 Blood Pressure 122/65 Pulse Oximetry 100 Oxygen Delivery Room Air Room Air Oxygen Flow Rate 07/13/25 20:47 07/13/25 22:29 07/14/25 02:29 Temperature 97.0 F L 97.8 F Pulse Rate 60 61 Respiratory Rate 17 14 Blood Pressure 111/60 120/60 Pulse Oximetry 97 96 Oxygen Delivery Room Air Oxygen Flow Rate 07/14/25 05:52 Temperature 97.5 F L Pulse Rate 76 Respiratory Rate 16 Blood Pressure 118/59 L Pulse Oximetry 94 Oxygen Delivery Oxygen Flow Rate Intake/Output Intake/Output: Intake & Output 07/11/25 07/12/25 07/13/25 07/14/25 23:59 23:59 23:59 23:59 Intake Total 800 Output Total 70 Balance 800 -70 Meds/Results Medications: Active Medications Generic Name Dose Route Start Last Admin Trade Name Freq PRN Reason Stop Dose Admin Acetaminophen 650 mg 07/13/25 13:00 07/14/25 05:00 Acetaminophen 325 Mg Tablet PO Not Given Q4H ZULEYKA Apixaban 2.5 mg 07/14/25 09:00 Apixaban 2.5 Mg Tablet PO Q12HR ZULEYKA Ascorbic Acid 1,000 mg 07/14/25 09:00 Ascorbic Acid 500 Mg Tablet PO DAILY ZULEYKA Cefdinir 300 mg 07/14/25 09:00 Cefdinir 300 Mg Capsule PO Q12HR ZULEYKA Cyanocobalamin 5,000 mcg 07/14/25 09:00 Cyanocobalamin 1,000 Mcg Tablet PO DAILY ZULEYKA Diphenhydramine HCl 25 mg 07/13/25 12:44 Diphenhydramine Hcl Inj 50 Mg/Ml Vial IV PUSH Q6H PRN Itching Famotidine 20 mg 07/13/25 21:00 07/13/25 20:47 Famotidine 20 Mg Tablet PO 20 mg Q12HR ZULEYKA Administration Cefazolin Sodium 2 gm/ Sodium 50 mls @ 100 mls/hr 07/13/25 16:00 07/13/25 23:33 Chloride IVPB 07/14/25 08:29 100 mls/hr Q8H ZULEYKA Administration Vancomycin HCl 1,000 mg/ 250 mls @ 250 mls/hr 07/13/25 19:00 07/14/25 06:28 Sodium Chloride IVPB 07/14/25 07:59 250 mls/hr Q12H ZULEYKA Administration Sodium Chloride 1,000 mls @ 125 mls/hr 07/13/25 12:44 07/13/25 13:53 Normal Saline Iv IV CONT 125 mls/hr .Q8H ZULEYKA Administration Levothyroxine Sodium 88 mcg 07/14/25 06:30 07/14/25 06:32 Levothyroxine Sodium 88 Mcg Tablet PO 88 mcg DAILY@0630 [facility] Administration Meloxicam 7.5 mg 07/14/25 08:00 Meloxicam 7.5 Mg Tablet PO DAILY@0800 [facility] Morphine Sulfate 2 mg 07/13/25 12:44 Morphine Sulfate (*Crx) 4 Mg/Ml Inj IV PUSH Q2H PRN Breakthrough Pain Rated 4-6 or NPO Naloxone HCl 0.1 mg 07/13/25 12:44 Naloxone Hcl 0.4 Mg/Ml Vial IV PUSH Q2M PRN Opiate Reversal Nonformulary 0 each 07/13/25 12:52 Nutritional XX 07/14/25 12:51 Supplement PRN PRN Nonformulary Drug ( PROTOCOL Biotin 5 Mg Capsule) Ondansetron HCl 4 mg 07/13/25 12:44 07/13/25 14:00 Ondansetron Inj 4 Mg/2 Ml Vial IV PUSH 4 mg Q4H PRN Administration Nausea And Vomiting Oxycodone HCl 5 mg 07/13/25 13:00 07/14/25 05:03 Oxycodone Hcl (*Crx) 5 Mg Tab Ir PO 5 mg Q4H ZULEYKA Administration Oxycodone HCl 5 mg 07/13/25 12:44 Oxycodone Hcl (*Crx) 5 Mg Tab Ir PO Q4H PRN Pain Rated 7-10 Polyethylene Glycol 17 gm 07/14/25 09:00 Polyethylene Glycol 3350 17 Gm Powd.Pack PO QAM [facility] Senna/Docusate Sodium 2 tab 07/13/25 21:00 07/13/25 20:47 Senna/Docusate Sodium Tablet PO 2 tab Q12HR [facility] Administration Radiology Results: ITS Impressions Pelvis X-Ray 07/13/25 09:02 IMPRESSION: Advanced degenerative changes in the hips right worse than left. Intraoperative X-Ray 07/13/25 11:31 IMPRESSION: Fluoroscopic images provided for surgical guidance. No radiologist present. See also operative/surgical notes for complete evaluation. Hip/Pelvis X-Ray 07/13/25 11:32 IMPRESSION: 1. As above. Labs Labs: Laboratory Results - last 24 hr 07/14/25 06:02 WBC 11.7 H RBC 3.31 L Hgb 10.6 L D Hct 31.5 L MCV 95.2 MCH 32.0 MCHC 33.7 RDW 12.7 Plt Count 202 MPV 8.6 Immature Gran % (Auto) 0.5 Neut % (Auto) 76.2 H Lymph % (Auto) 14.2 L Nicholas % (Auto) 8.7 H Eos % (Auto) 0.0 Baso % (Auto) 0.4 Lymph # (Auto) 1.65 Nicholas # (Auto) 1.0 H Eos # (Auto) 0.0 Baso # (Auto) 0.1 Abs Immat Gran (auto) 0.06 H Absolute Neuts (auto) 8.9 H Absolute Nucleated RBC 0.000 Nucleated RBC % 0.0 Sodium 136 L Potassium 4.0 Chloride 110 H Carbon Dioxide 23 Anion Gap 3 L BUN 19 H Creatinine 1.01 H Estim Creat Clear Calc 45 Estimated GFR 54 L Glucose 112 H Calcium 8.7
[2025-07-14 08:00] VITALS: PULSE 76; RESP 16; O2SAT 94
[2025-07-14] MEDS: FAMOTIDINE 20 MG TABLET PO (09:32)
[2025-07-14] MEDS: APIXABAN 2.5 MG TABLET PO (09:32)
[2025-07-14] MEDS: ceFAZolin 2 GM in SODIUM CHLORIDE 0.9% IV 50 ML 100 ML IVPB (09:32)
[2025-07-14] MEDS: ASCORBIC ACID 500 MG TABLET 1000 MG PO (09:32)
[2025-07-14] MEDS: CEFDINIR 300 MG CAPSULE PO (09:33)
[2025-07-14] MEDS: ACETAMINOPHEN 325 MG TABLET 650 MG PO (09:33)
[2025-07-14] MEDS: SENNA/DOCUSATE SODIUM TABLET 2 TAB PO (09:33)
[2025-07-14] MEDS: MELOXICAM 7.5 MG TABLET PO (09:33)
[2025-07-14] MEDS: CYANOCOBALAMIN 1,000 MCG TABLET 5000 MCG PO (09:33)
[2025-07-14] MEDS: CALCIUM CARBONATE (TUMS) 500 MG (200 MG ELEMENTAL) 600 MG BY MOUTH (09:33)
== END 2025-07-14 11:49 | disposition home or self-care (01) ==
LOC: ANHSURGERY 05:57 → ANH3MEDSUR 12:45
PROVIDERS: Physician Assistant Surgical; PCP Internal Medicine; Visit Provider Orthopaedic Surgery
PROC: (CPT 27130; principal; 2025-07-13 07:30)
DX: M16.11 Unilateral primary osteoarthritis, right hip (principal); Z87.891 Personal history of nicotine dependence; E66.9 Obesity, unspecified; Z68.30 Body mass index [BMI] 30.0-30.9, adult
CPT/HCPCS: 27130; 36415; 72170; 73501; 80048; 82306; 85025; 97110; 97116; 97161; 97166; 97530; 97535; 99199; J0690; A9270; C1776; J0166; J0330; J0360; J1100; J1171; J1200; J1885; J2003; J2270; J2371; J2405; J2704; J2795; J3010; J3290; J3373; J7030; J7050; J7120

== ENCOUNTER 2025-07-17 10:44 | Outpatient (CLI) | payer MEDICARE, SELFPAY ==
[2025-07-17 11:01] LABS: Hematocrit 34.5 % (35.0-42.0); Hemoglobin 11.5 g/dL (11.7-13.8); Immature Granulocyte Percent A 0.3 % (0.0-0.0); Lymphocytes Absolute Auto 2.11 K/mm3 (1.10-4.50); Mean Corpuscular HGB Conc 33.3 g/dL (32-36); Mean Corpuscular Hemoglobin 31.2 pg (27.0-31.0); Mean Corpuscular Volume 93.5 fL (78.0-102.0); Nucleated Red Blood Cells Absolute Auto 0.00 K/mm3 (0.00-0.00); Nucleated Red Blood Cells Perc 0.0 % (0-0.0); Platelet Count Result 274 K/mm3 (150-420); Red Blood Count 3.69 M/mm3 (4.20-5.40); White Blood Count 8.8 K/mm3 (4.8-10.8)
[2025-07-17 11:24] LABS: Alanine Aminotransferase 19 U/L (6-35); Albumin Level 3.9 g/dL (3.5-5.1); Alkaline Phosphatase 94 U/L (38-126); Anion Gap 11 mmol/L (4-12); Aspartate Amino Transferase 33 U/L (14-36); Bilirubin,Total 0.8 mg/dL (0.2-1.3); Blood Urea Nitrogen 10 mg/dL (7-17); Calcium 9.3 mg/dL (8.4-10.2); Carbon Dioxide 24 mmol/L (22-30); Chloride 106 mmol/L (98-107); Estimated Glomerular Filt Rate > 60; Glucose 144 mg/dL (65-110); Osmolality Calculated 294 mOsm/kg (285-295); Potassium 3.9 mmol/L (3.4-5.0); Sodium 141 mmol/L (137-145); Total Protein 6.6 g/dL (6.3-8.2)
== END 2025-07-17 10:45 | disposition home or self-care (01) ==
PROVIDERS: Orthopaedic Surgery; PCP Internal Medicine; Visit Provider Physician Assistant Surgical
DX: D64.9 Anemia, unspecified (principal); M16.11 Unilateral primary osteoarthritis, right hip; Z68.29 Body mass index [BMI] 29.0-29.9, adult; E55.9 Vitamin D deficiency, unspecified
CPT/HCPCS: 36415; 80053; 82306; 85025